=== PATIENT | female | born 1965 | race Caucasian/White ===

== ENCOUNTER 2021-02-03 14:43 | Outpatient (RCR) | payer BC, SELFPAY | END 2021-04-18 23:59 | LOC: IMMUN 14:43 | PROVIDERS: Visit Provider Family Medicine | DX: Z23 Encounter for immunization (principal) | CPT/HCPCS: 0001A; 0002A; 91300 ==

== ENCOUNTER 2025-04-07 07:28 | Emergency (ER) | payer BC, SELFPAY ==
[2025-04-07 07:31] VITALS: BP 133/72; PULSE 83; RESP 16; TEMP 37; O2SAT 97; BMI 43.2
--- NOTE | 2025-04-07 07:48 | CT_ITS ---
PROCEDURE: SOFT TISSUE NECK WITH CONTRAST 04/07/2025 REASON FOR EXAM: LUMP IN THROAT Emesis. TECHNIQUE: CT of the soft tissues of the neck from the orbits to the upper mediastinum with intravenous contrast. CONTRAST: Isovue 370 VOLUME: 80 mL One or more dose reduction techniques were used (e.g., Automated exposure control, adjustment of the mA and/or kV according to patient size, use of iterative reconstruction technique). RADIATION DOSE SUMMARY: CTDlvol: 18.85 mGy DLP: 583.99 mGycm COMPARISON: None FINDINGS: Airway: Midline and patent. Salivary glands: Unremarkable. Lymph nodes: Mild reactive enlargement of multiple cervical lymph nodes. Thyroid: Unremarkable. Vasculature: Carotid arteries and internal jugular veins are unremarkable. Orbits: Unremarkable at visualized levels. Paranasal sinuses and mastoids: Grossly clear at visualized levels. Lung apices: Clear. Upper mediastinum: Visualized mediastinum is unremarkable. Bones: Mild degenerative changes of the spine. Other: CT/Soft Tissue Neck WITH Contrast IMPRESSION: NORMAL CONTRAST-ENHANCED CT OF THE SOFT TISSUES OF THE NECK. Reading Location: [place] [id number]
--- NOTE | 2025-04-07 07:52 | EDS_ITS ---
HPI HPI - GI History of Present Illness Chief Complaint: Foreign Body Narrative Narrative: 60-year-old female who denies significant past medical history presents with foreign body sensation/lump in her throat that she has had since this morning. She relays history that about a month ago she woke up with a feeling that she was going to vomit. She did. She felt this lump in her throat, but it resolved. However, yesterday evening she woke up at midnight, approximately 8 hours ago which she had the same feeling. She did end up vomiting, but then at 2 or 3:00 in the morning she awoke with this foreign body sensation and swelling in her throat that she states that she can palpate. She denies any difficulty swallowing and states she is able to drink water and swallow her own saliva, but she feels that there is a lump in her throat that is larger and will not go away. No exacerbating or alleviating factors. PFSH PFSH Allergy/AdvReac Type Severity Reaction Status Date / Time No Known Allergies Allergy Verified 04/07/25 07:33 Social History Smoking Status: Never smoker ROS ROS ED ROS Narrative Review of systems positive for lump in throat at anterior base of neck that patient can palpate. Denies any difficulty swallowing or breathing. No recent fevers or chills. No exacerbating or alleviating factors. EXAM Physical Exam Narrative Exam Narrative: Afebrile. Vital signs noted. Nontoxic-appearing. Cardiovascular examination reveals regular rate and rhythm. Lungs are clear to auscultation bilaterally. HEENT examination is grossly unremarkable. No drooling or trismus. Airway is patent. Posterior pharynx patent. I do not palpate a large lump at the base of her trachea, but I am able to palpate her thyroid cartilage without crepitance. Const Vital Signs: 04/07/25 07:30 04/07/25 07:31 Temperature 98.6 F Temperature Source Oral Pulse Rate 83 Respiratory Rate 16 Respiratory Effort Normal Non-Labored Respiratory Pattern Normal Blood Pressure 133/72 H Blood Pressure Mean 92 Pulse Ox 97 Oxygen Delivery Method Room Air MDM MDM MDM Narrative Medical decision making narrative: Differential diagnosis includes but not limited to globus hystericus versus foreign body sensation versus esophageal rupture versus hematoma. I have low suspicion for esophageal food impaction as she is handling her secretions. She will be given a p.o. challenge. CT imaging will be obtained to rule out foreign body and hematoma. I reviewed her laboratory work and she has normal white count 6.8 with hemoglobin 14.1, hematocrit 42.8, platelet count normal at 281. I also reviewed the radiology report of the CT of the soft tissue neck and there is no acute obstruction, no foreign body. I also reviewed her BMP. BMP obtained and reviewed and shows glucose 116 but BUN normal at 13 and creatinine 0.85, normal anion gap of 11. Patient able to tolerate p.o. challenge. At this point in time, I do feel that she may have more GERD like symptoms, and she was referred to gastroenterology for possible upper endoscopy. I do not feel she requires admission. Return instructions to the emergency department were reviewed. Disposition is discharged home in stable condition. History & Record Review Discussion w/independent historian: Patient Lab Data Attestation: I reviewed the patient's lab results. Labs: Laboratory Results - last 24 hr 04/07/25 08:10 WBC 6.8 RBC 5.16 Hgb 14.1 Hct 42.8 MCV 82.9 MCH 27.3 MCHC 32.9 RDW Std Deviation 39.9 RDW Coeff of Rafa 13.4 Plt Count 281 MPV 10.3 Immature Gran % (Auto) 0.300 Neut % (Auto) 75.1 H Lymph % (Auto) 14.2 L Taliaferro % (Auto) 7.3 Eos % (Auto) 2.5 Baso % (Auto) 0.6 Absolute Neuts (auto) 5.1 Absolute Lymphs (auto) 0.97 Nucleated RBC % 0 Sodium 140 Potassium 4.1 Chloride 105 Carbon Dioxide 24.9 Anion Gap 11 BUN 13 Creatinine 0.85 Estim Creat Clear Calc 79.01 Est GFR (MDRD) Non-Af 79 BUN/Creatinine Ratio 15.3 Glucose 116 H Calcium 9.5 Radiography Diagnostic Testing: Clinical Impression(s) from Imaging Studies Soft Tissue Neck CT 04/07/25 07:48 IMPRESSION: NORMAL CONTRAST-ENHANCED CT OF THE SOFT TISSUES OF THE NECK. Reading Location: [place] [id number] Discharge Plan Triage Chief Complaint: Foreign Body ED Provider: Yosi Chaney Dx/Rx/DC Orders Clinical Impression: Foreign body sensation in throat, GERD (gastroesophageal reflux disease) Instructions: ED GERD (Adult), ED Pain, Acute, Uncertain Cause Primary Care Provider: Uriel Lovelace Referrals: Uriel Lovelace DO [Primary Care Provider] - FriendJose DO [Med Staff - Active Staff] - As soon as possible Activity Restrictions/Additional Instructions: Return to the emergency department with difficulty swallowing, new or worsening symptoms. You may want to start [id number] omeprazole, and follow-up with gastroenterology. Print Language: [place] Disposition Disposition: Home, Self Care
[2025-04-07 08:18] LABS: Absolute Lymphocyte Count 0.97 X10^3/uL (0.83-4.51); Absolute Neutrophil Count 5.1 X10^3/uL (2.0-7.7); Basophil# 0.04 X10^3/uL; Basophil% 0.6 % (0-1); Eosinophil# 0.17 X10^3/uL; Eosinophils% 2.5 % (0-5); Hematocrit 42.8 % (37-47); Hemoglobin 14.1 g/dL (12.0-15.0); Lymphocyte # 0.97 X10^3/ul (0.83-4.51); Lymphocyte % 14.2 % (19-41); Mean Corp Hgb Conc 32.9 g/dL (32-36); Mean Corpuscular Hgb 27.3 pg (27.0-32.0); Mean Corpuscular Volume 82.9 fL (81-99); Mean Platelet Vol. 10.3 fl (6.2-12.0); Monocyte% 7.3 % (0-10); NRBC Flagged by Analyzer 0 % (0-5); Neutrophil # 5.14 X10^3/uL (2.7-7.7); Neutrophil % 75.1 % (47-70); Platelet Count 281 K/mm3 (150-450); RBC Distribution Width CV 13.4 % (11.6-14.6); RBC Distribution Width SD 39.9 fl (35.1-43.9); Red Blood Count 5.16 M/mm3 (4.2-5.4); White Blood Count 6.8 K/mm3 (4.4-11.0)
[2025-04-07 09:13] LABS: Anion Gap 11 (5-15); BUN 13 mg/dL (4-19); BUN/Creat Ratio 15.3 RATIO (10-20); Calcium,Total 9.5 mg/dL (7.6-11.0); Carbon Dioxide 24.9 mmol/L (21.0-32.0); Chloride 105 mmol/L (98-108); Creatinine, Serum 0.85 mg/dL (0.70-1.20); EST Glomerular Filtration Rate 79 (>60); Estimated Creatinine Clearance 79.01 ml/min (50-250); Glucose 116 mg/dL (70-99); Potassium 4.1 mmol/L (3.3-5.1); Sodium Level 140 mmol/L (133-145)
[2025-04-07 10:00] VITALS: BP 128/74; PULSE 81; PULSE 83; RESP 16; TEMP 36.6; O2SAT 96
== END 2025-04-07 10:36 | disposition home or self-care (01) ==
PROVIDERS: Emergency Provider Emergency Medicine; PCP Student in an Organized Health Care Education/Training Program; Visit Provider Emergency Medicine
DX: R09.A2 Foreign body sensation, throat (principal); K21.9 Gastro-esophageal reflux disease without esophagitis
CPT/HCPCS: 70491; 80048; 85025; 99283; Q9967; A4216

== ENCOUNTER 2025-04-18 09:18 | Emergency (ER) | payer BC, SELFPAY ==
[2025-04-18 09:18] VITALS: BP 143/87; PULSE 81; RESP 16; TEMP 36.9; O2SAT 98; BMI 43.2
--- NOTE | 2025-04-18 09:31 | EDS_ITS ---
HPI History of Present Illness Chief Complaint: Eye Problem Detail of Chief Complaint: Right eye scratch Informant: patient Narrative Narrative: Patient presents to the emergency department with a cat scratch to her right eye that occurred last evening. Patient states that her cat accidentally scratched her right eye. She went to urgent care today and was referred to the ER. Patient denies any vision changes. She had some mild tearing. PFSH PFSH Allergy/AdvReac Type Severity Reaction Status Date / Time No Known Allergies Allergy Verified 04/18/25 09:18 Social History Smoking Status: Never smoker ROS ROS ED Review of Systems ROS Unobtainable: other Constitutional Constitutional ED: Reports lethargy; Denies chills, fever(s), sweats or weight loss Eyes Eyes: Reports other Details: Right eye injury ; Denies blurry vision, change in vision or diplopia ENT ENT ED: Denies rhinorrhea or sore throat Cardiovascular Cardiovascular: Denies chest pain, orthopnea or racing heartbeat Respiratory/Chest Respiratory/Chest: Denies cough, dyspnea, dyspnea on exertion, orthopnea or sputum Gastrointestinal Gastrointestinal: Denies abdominal pain, diarrhea, nausea or vomiting Genitourinary Genitourinary ED: Denies dysuria, hematuria or urinary frequency Musculoskeletal Musculoskeletal: Denies arthralgias, back pain, myalgias or neck pain Integumentary Denies abscess, Abrasions or rash Neurologic Neurologic: Denies headache(s) or weakness Psychiatric Psychiatric: Denies anxiety, depression or suicidal thoughts Endocrine Endocrinology: Denies polydipsia, polyphagia or polyuria Hematologic/Lymphatic Hematologic/Lymphatic: Denies easy bleeding, easy bruising or lymphadenopathy Allergic/Immunologic Allergic/Immunologic ED: Denies mouth swelling, tongue swelling or urticaria EXAM Physical Exam Const Vital Signs: 04/18/25 09:18 Temperature 98.4 F Temperature Source Oral Pulse Rate 81 Respiratory Rate 16 Blood Pressure 143/87 H Blood Pressure Mean 105 Pulse Ox 98 Oxygen Delivery Method Room Air Positive well nourished and well developed General Appearance ED: well developed and NAD HEENT Reports TM's clear and moist mucous membranes normocephalic and atraumatic; Negative for trauma or tenderness Tympanic Membrane ED: Yes TM's clear Eyes PERRL and EOMs intact bilaterally Eyes Narrative: Right eye-patient has some lateral conjunctival erythema/contusion. Pupils equal react light bilaterally. Extraocular muscle movement is normal. General Eye ED: Negative for pale conjunctiva or scleral icterus Neck no lymphadenopathy, supple and no JVD General: Negative for tenderness Chest Wall inspection of chest normal and palpation of chest normal Chest: Negative for tenderness Resp normal respiratory effort and clear to auscultation bilaterally Effort and Inspection: Negative for respiratory distress or pain with movement Auscultation: Negative for rhonchi, wheezes or diminished lung sounds Cardio regular rate, regular rhythm, S1 normal heart sound, S2 normal heart sound and no murmurs Peripheral Pulses: pulses 2+ throughout GI normal to inspection, nondistended, normoactive bowel sounds, soft to palpation, non-tender, non-distended and no masses Back/Spine no CVA tenderness and no thoracic nor lumbar tenderness Extremity normal to inspection General Extremety ED: Negative for edema General Extremity: Negative for edema Neuro oriented x3, CN's II-XII intact bilaterally, no sensory deficits noted and gait normal Sensorium / Orientation: awake, alert, oriented to person, oriented to place and oriented to time Motor Exam: strength 5/5 throughout and strength abnormal Psych mental status grossly normal Skin no rashes or lesions noted and no wounds MDM MDM MDM Narrative Medical decision making narrative: Patient presents with a scratch to the right eye that occurred last evening by her cat. She clinically looks well. I did use fluorescein stain the eye and there was no evidence of corneal abrasion. Minimal uptake over the lateral conjunctiva where the contusion is. Negative Eric sign. No foreign bodies noted underneath the eyelids. Patient will be started on Cipro eyedrops and referred to ophthalmology for follow-up. Discharge Plan Triage Chief Complaint: Eye Problem ED Provider: Brooklynn Velasco Dx/Rx/DC Orders Clinical Impression: Injury of right conjunctiva Instructions: Subconjunctival Hemorrhage Primary Care Provider: Uriel Lovelace Referrals: Uriel Lovelace DO [Primary Care Provider] - Marcial Almendarez MD [Med Staff - Active Staff] - 2 Days Activity Restrictions/Additional Instructions: You have an abrasion to the right conjunctiva from a cat scratch. Use the antibiotic eyedrop and follow-up with ophthalmology for wound check within the next 2 to 3 days Print Language: [place] Disposition Disposition: Home, Self Care
--- OUTSIDE RECORDS SUMMARY | 2025-04-18 09:37 | XMS RPT_ITS | CCD ---
Author Organization [facility] Care Team Providers Care Shop Technician Name Role Phone Uriel Lovelace DO Primary Care Provider [phone] Unavailable Primary Care Provider Unavailabl e Unavailable Primary Care Provider Unavailabl e Unavailable Primary Care Provider Unavailabl e PROVIDER, UNKNOWN Admitting Unavailable PROVIDER, UNKNOWN Attending Unavailable Unavailable Primary Care Provider Unavailneri e ISI LAWRENCE Attending Unavailable DEX MUNGUIA Referring Unavailable DEX MUNGUIA Attending Unavailable DEX MUNGUIA Referring Unavailable Yosi Chaney MD Emergency Provider Dr. Uriel Lovelace DO Primary Care Provider Yosi Chaney Attending Unavailable Uriel Lovelace Primary Care Unavailable Medications Current Medications Medication Drug Class(es) Dates Sig (Normalized) Sig (Original) Apple Cider Vinegar (20 sources) APPLE CIDER VINE GAR ORAL Take 2 Each by mouth once daily. 2 gummiesfdaily Active APPLE CIDER VINE GAR ORAL Take 2 Each by mouth once daily. 2 gummiesfdaily 0 Active Comment on above: Take 2 Each by mouth once daily. 2 gummiesfdaily ferrous sulfate 140 mg extended release oral tablet (20 sources) Start: 2 End: 2 take 1 tablet by mouth twice daily at mealtime ferrous sulfate (SLOW FE) 140 mg (45 mg iron) TbER Indications: Fatigue, unspecified type , Iron deficiency anemia, unspecified iron deficiency anemia type Take 1 tablet by mouth twice daily with meals. 60 tablet 2 04/04/2022 07/03/2022 Active take 1 tablet by marcel th once daily at breakfast ferrous sulfate 325 mg (65 mg iron) tabl et Take 325 mg by mouth daily with breakfast. Active Comment on above: Take 1 tablet by marcel th twice daily with meals. Take 325 mg by mouth daily with breakfast. semaglutide, weight loss, (WEGOVY) 0.25 mg/0.5 mL pen injector (3 sources) Start: 4 inject 0.5 mL by subcutaneous injection every week semaglutide, weight loss, (WEGOVY) 0.25 mg/0.5 mL pen injector Indications: Sleep apnea-like behavior , Severe obesity (BMI >= 40) (HCC) Inject 0.5 mL subcutaneously one time a week. 2 mL 2 06/19/2024 Active semaglutide, weight loss, (WEGOVY) 0.5 mg/0.5 mL pen injector (3 sources) Start: 4 inject 0.25 mg by subcutaneous injection every week semaglutide, weight loss, (WEGOVY) 0.5 mg/0.5 mL pen injector Inject 0.5 mL subcutaneously one time a week. To start after completing 0.25 mg dose 2 mL 2 06/19/2024 Active Completed/Discontinued Medications Medication Drug Class(es) Dates Sig (Normalized) Sig (Original) vit C-vitamin D3-herb no.313 250 mg-3.75 mcg -212.5 mg cap (5 sources) End: 04-25-2022 take 1 capsule by mouth once daily vit C-vitamin D3-herb no.313 250 mg-3.75 mcg -212.5 mg cap Take 1 capsule by mouth once daily. 0 04/25/2022 Discontinued take 1 capsule by mouth once liya ly vit C-vitamin D3-herb no.313 250 mg-3.75 mcg -212.5 mg cap Take 1 capsule by mouth once daily. 0 Active Comment on above: Take 1 capsule by mo ut once daily. Problems Active Problems Problem Classification Problem Date Documented Da te Episodic/Chronic Deficiency and other anemia (1 source) Iron deficiency anemia; Translations: [Iron deficiency anemia, unspecified] Episodic Disorders of lipid metabolism (20 sources) Hypercholesterolemia; Translations: [Pure hypercholesterolemia, unspecified] Onset: 4 02-26-2014 Chronic Esophageal disorders (1 source) Gastroesophageal reflux disease; Translations: [Gastro-esophageal reflux disease without esophagitis] 04-07-2025 Chronic Malaise and fatigue (2 sources) Fatigue; Translations: [Other fatigue] Episodic Nutritional deficiencies (1 source) Vitamin D deficiency; Translations: [Vitamin D deficiency, unspecified] Chronic Other gastrointestinal disorders (1 source) Dysphagia; Translations: [Dysphagia, unspecified] Episodic Other nutritional; endocrine; and metabolic disorders (20 sources) Obesity; Translations: [Obesity, unspecified] Onset: 8 09-28-2008 Chronic Other nutritional; endocrine; and metabolic disorders (1 source) Obese class II; Translations: [Obesity, unspecified] Chronic Other nutritional; endocrine; and metabolic disorders (1 source) Severe obesity; Translations: [Morbid (severe) obesity due to excess calories] 04-20-2024 Chronic Other nutritional; endocrine; and metabolic disorders (1 source) Body mass index 40+ - severely obese; Translations: [Morbid (severe) obesity due to excess calories] 06-19-2024 Chronic Other nutritional; endocrine; and metabolic disorders (1 source) Insulin resistance; Translations: [Insulin resistance] 06-19-2024 Chronic Other nutritional; endocrine; and metabolic disorders (1 source) Morbid (severe) obesity due to excess calories; Translations: [Class 3 severe obesity with body mass index (BMI) of 40.0 to 44.9 in adult, unspecified obesity type, unspecified whether serious comorbidity present (HCC)] Onset: 8 Chronic Other nutritional; endocrine; and metabolic disorders (1 source) Body mass index (BMI) 40.0-44.9, adult; Translations: [Class 3 severe obesity with body mass index (BMI) of 40.0 to 44.9 in adult, unspecified obesity type, unspecified whether serious comorbidity present (HCC)] Onset: 8 Chronic Other screening for suspected conditions (not mental disorders or infectious disease) (1 source) Finding of thyroid gland; Translations: [Abnormal findings on diagnostic imaging of other specified body structures] Chronic Other skin disorders (1 source) Localized swelling, mass and lump, neck; Translations: [Localized swelling, mass and lump, neck] Onset: Episodic Other upper respiratory disease (1 source) Sensation of foreign body in throat; Translations: [Sensation of foreign body in throat] 04-07-2025 Episodic Other upper respiratory infections (1 source) Nasal discharge; Translations: [Postnasal drip] Episodic Residual codes; unclassified (1 source) Behavior finding; Translations: [Other sleep apnea] 06-19-2024 Chronic Thyroid disorders (20 sources) Hyperthyroidism; Translations: [Thyrotoxicosis, unspecified without thyrotoxic crisis or storm] Onset: 2 Chronic Past or Other Problems Problem Classification Problem Date Documented Da te Episodic/Chronic Other connective tissue disease (20 sources) Heel pain; Translations: [Pain in unspecified foot] Onset: 02-26-2014 02-26-2014 Episodic Other gastrointestinal disorders (20 sources) Flatulence, eructation and gas pain; Translations: [Flatulence] Onset: 09-28-2008 09-28-2008 Episodic Other screening for suspected conditions (not mental disorders or infectious disease) (6 sources) Thyroid function tests abnormal; Translations: [Abnormal results of thyroid function studies] Onset: 04-15-2024 Episodic Results Test Name Value Interpretation Reference Range Facility Absolute lymphocyte countOrd ered By: Yosi Chaney on 04-07-2025 Lymphocytes Auto (Unsp spec) [#/Vol] 0.97 10*3/uL 0.83-4.51 [facility] Absolute neutrophil countOrd ered By: Yosi Chaney on 04-07-2025 Neutrophils (Bld) [#/Vol] 5.1 10*3/uL 2.0-7.7 [facility] Anion gap in Serum or Plasma Ordered By: Yosi Chaney on 04-07-2025 Anion gap [Moles/Vol] 11 mmol/L 03-25 [facility] Automated lymphocyte count a s percentage of total leukocytesOrdered By: Yosi Chaney on 04-07-2025 Lymphocytes/100 WBC Auto (Unsp spec) 14.2 % Low 19- [facility] BUN/creatinine ratioOrdered By: Yosi Chaney on 04-07-2025 Urea nitrogen/Creatinine [Mass ratio] 15.3 mg/mg 08-30 [facility] Basic Metabolic Profile (BMP )on 04-07-2025 BUN/CRE 15.3 RATIO Normal 08-30 [facility] Comment on above: Performed By: #### L 100.0100, L500.2500 #### [facility] [address] [place], [address] Calcium [Mass/Vol] 9.5 mg/dL Normal 7.6-11.0 [facility] Comment on above: Performed By: #### L 100.0100, L500.2500 #### [facility] [address] [place], [address] Chloride [Moles/Vol] 105 mmol/L Normal 98-108 [facility] Comment on above: Performed By: #### L 100.0100, L500.2500 #### [facility] [address] [place], [address] CO2 [Moles/Vol] 24.9 mmol/L Normal 21.0-32.0 [facility] Comment on above: Performed By: #### L 100.0100, L500.2500 #### [facility] [address] [place], [address] Creatinine [Mass/Vol] 0.85 mg/dL Normal 0.70-1.20 [facility] Comment on above: Performed By: #### L 100.0100, L500.2500 #### [facility] [address] [place], [address] ECRCL 79.01 ml/min Normal 50-250 [facility] Comment on above: Performed By: #### L 100.0100, L500.2500 #### [facility] [address] [place], [address] GAP 11 Normal 5-15 [facility] Comment on above: Performed By: #### L 100.0100, L500.2500 #### [facility] [address] [place], [address] GFR/1.73 sq M.predicted among non-blacks MDRD (S/P/Bld) [Vol rate/Area] 79 mL/min/{1.73_m2} Normal >60 [facility] Comment on above: Result Comment: mL/m in/1.73m2 CKD-EPI Creatinine Equation (2020) Performed By: #### L 100.0100, L500.2500 #### [facility] [address] [place], [address] Glucose [Mass/Vol] 116 mg/dL High 70-99 [facility] Comment on above: Performed By: #### L 100.0100, L500.2500 #### [facility] [address] [place], [address] Potassium [Moles/Vol] 4.1 mmol/L Normal 3.3-5.1 [facility] Comment on above: Performed By: #### L 100.0100, L500.2500 #### [facility] [address] [place], [address] Sodium [Moles/Vol] 140 mmol/L Normal 133-145 [facility] Comment on above: Performed By: #### L 100.0100, L500.2500 #### [facility] [address] [place], [address] Urea nitrogen [Mass/Vol] 13 mg/dL Normal 4-19 [facility] Comment on above: Performed By: #### L 100.0100, L500.2500 #### [facility] [address] [place], [address] Basophil percentageOrdered B y: Yosi Chaney on 04-07-2025 Basophils/100 WBC (Bld) 0.6 % 0-1 [facility] CBC W/Diff, Automatedon - Absolute Lymph 0.97 X10 3/uL Normal 0.83-4.51 [facility] Comment on above: Performed By: #### L 100.0100, L500.2500 #### [facility] [address] [place], [address] Absolute Neut 5.1 X10 3/uL Normal 2.0-7.7 [facility] Comment on above: Performed By: #### L 100.0100, L500.2500 #### [facility] [address] [place], [address] Basophils/100 WBC (Bld) 0.6 % Normal 0-1 [facility] Comment on above: Performed By: #### L 100.0100, L500.2500 #### [facility] [address] [place], [address] Eosinophils/100 WBC (Bld) 2.5 % Normal 0-5 [facility] Comment on above: Performed By: #### L 100.0100, L500.2500 #### [facility] [address] [place], [address] Erythrocyte distribution width (RBC) [Ratio] 13.4 % Normal 11.6-14.6 [facility] Comment on above: Performed By: #### L 100.0100, L500.2500 #### [facility] [address] [place], [address] Hematocrit (Bld) [Volume fraction] 42.8 % Normal 37-47 [facility] Comment on above: Performed By: #### L 100.0100, L500.2500 #### [facility] [address] [place], [address] Hemoglobin (Bld) [Mass/Vol] 14.1 g/dL Normal 12.0-15.0 [facility] Comment on above: Performed By: #### L 100.0100, L500.2500 #### [facility] [address] [place], [address] IG% 0.300 Normal 0.0-0.9 [facility] Comment on above: Result Comment: IG% - Immature Granulocytes (promyelocytes, myelocytes and metamyelocytes) > 1% indicates that a LEFT SHIFT is Present. Performed By: #### L 100.0100, L500.2500 #### [facility] [address] [place], [address] Lymphocytes/100 WBC (Bld) 14.2 % Low 19-41 [facility] Comment on above: Performed By: #### L 100.0100, L500.2500 #### [facility] [address] [place], [address] MCH (RBC) [Entitic mass] 27.3 pg Normal 27.0-32.0 [facility] Comment on above: Performed By: #### L 100.0100, L500.2500 #### [facility] [address] [place], [address] MCHC (RBC) [Mass/Vol] 32.9 g/dL Normal 32-36 [facility] Comment on above: Performed By: #### L 100.0100, L500.2500 #### [facility] [address] [place], [address] MCV (RBC) [Entitic vol] 82.9 fL Normal 81-99 [facility] Comment on above: Performed By: #### L 100.0100, L500.2500 #### [facility] [address] [place], [address] Monocytes/100 WBC (Bld) 7.3 % Normal 0-10 [facility] Comment on above: Performed By: #### L 100.0100, L500.2500 #### [facility] [address] [place], [address] Neutrophils/100 WBC (Bld) 75.1 % High 47-70 [facility] Comment on above: Performed By: #### L 100.0100, L500.2500 #### [facility] [address] [place], [address] Nucleated RBC (Bld) [#/Vol] 0 10*3/uL Normal 0-5 [facility] Comment on above: Performed By: #### L 100.0100, L500.2500 #### [facility] [address] [place], [address] Platelet mean volume (Bld) [Entitic vol] 10.3 fL Normal 6.2-12.0 [facility] Comment on above: Performed By: #### L 100.0100, L500.2500 #### [facility] [address] [place], [address] Platelets (Bld) [#/Vol] 281 10*3/uL Normal 150-450 [facility] Comment on above: Performed By: #### L 100.0100, L500.2500 #### [facility] [address] [place], [address] RBC (Bld) [#/Vol] 5.16 10*6/uL Normal 4.2-5.4 [facility] Comment on above: Performed By: #### L 100.0100, L500.2500 #### [facility] [address] [place], [address] RDW SD 39.9 fl Normal 35.1-43.9 [facility] Comment on above: Performed By: #### L 100.0100, L500.2500 #### [facility] [address] [place], [address] WBC (Bld) [#/Vol] 6.8 10*3/uL Normal 4.4-11.0 [facility] Comment on above: Performed By: #### L 100.0100, L500.2500 #### [facility] [address] [place], [address] Carbon dioxide, total [Moles /volume] in Central venous bloodOrdered By: Yosi Chaney on 04-07-2025 CO2 [Moles/Vol] 24.9 mmol/L 21.0-32.0 [facility] Chloride assayOrdered By: Corby Chaney on 04-07-2025 Chloride [Moles/Vol] 105 mmol/L 98-108 [facility] Emergency Department Summary on 04-07-2025 Emergency Department Summary [facility] Medical Records Department [address] [place] [address] Emergency Department Summary 04/07/25 MR#: [id number] Acct: [id number] Name: DO DE GUZMAN Rep #: [id number] : 1965 60 From: Yosi Chaney MD PCP: Dr. Uriel Lovelace, DO Status:REG ER Location: ED HPI HPI - GI History of Present Illness Chief Complaint: Foreign Body Narrative Narrative: 60-year-old female who denies significant past medical history presents with foreign body sensation/lump in her throat that she has had since this morning. She relays history that about a month ago she woke up with a feeling that she was going to vomit. She did. She felt this lump in her throat, but it resolved. However, yesterday evening she woke up at midnight, approximately 8 hours ago which she had the same feeling. She did end up vomiting, but then at 2 or 3:00 in the morning she awoke with this foreign body sensation and swelling in her throat that she states that she can palpate. She denies any difficulty swallowing and states she is able to drink water and swallow her own saliva, but she feels that there is a lump in her throat that is larger and will not go away. No exacerbating or alleviating factors. PFSH PFSH Allergy/AdvReac Type Severity Reaction Status Date / Time No Known Allergies Allergy Verified 04/07/25 07:33 Social History Smoking Status: Never smoker ROS ROS ED ROS Narrative Review of systems positive for lump in throat at anterior base of neck that patient can palpate. Denies any difficulty swallowing or breathing. No recent fevers or chills. No exacerbating or alleviating factors. EXAM Physical Exam Narrative Exam Narrative: Afebrile. Vital signs noted. Nontoxic-appearing. Cardiovascular examination reveals regular rate and rhythm. Lungs are clear to auscultation bilaterally. HEENT examination is grossly unremarkable. No drooling or trismus. Airway is patent. Posterior pharynx patent. I do not palpate a large lump at the base of her trachea, but I am able to palpate her thyroid cartilage without crepitance. Const Vital Signs: 04/07/25 07:30 04/07/25 07:31 Temperature 98.6 F Temperature Source Oral Pulse Rate 83 Respiratory Rate 16 Respiratory Effort Normal Non-Labored Respiratory Pattern Normal Blood Pressure 133/72 H Blood Pressure Mean 92 Pulse Ox 97 Oxygen Delivery Method Room Air MDM MDM MDM Narrative Medical decision making narrative: Differential diagnosis includes but not limited to globus hystericus versus foreign body sensation versus esophageal rupture versus hematoma. I have low suspicion for esophageal food impaction as she is handling her secretions. She will be given a p.o. challenge. CT imaging will be obtained to rule out foreign body and hematoma. I reviewed her laboratory work and she has normal white count 6.8 with hemoglobin 14.1, hematocrit 42.8, platelet count normal at 281. I also reviewed the radiology report of the CT of the soft tissue neck and there is no acute obstruction, no foreign body. I also reviewed her BMP. BMP obtained and reviewed and shows glucose 116 but BUN normal at 13 and creatinine 0.85, normal anion gap of 11. Patient able to tolerate p.o. challenge. At this point in time, I do feel that she may have more GERD like symptoms, and she was referred to gastroenterology for possible upper endoscopy. I do not feel she requires admission. Return instructions to the emergency department were reviewed. Disposition is discharged home in stable condition. History Record Review Discussion w/independent historian: Patient Lab Data Attestation: I reviewed the patient's lab results. Labs: Laboratory Results - last 24 hr 04/07/25 08:10 WBC 6.8 RBC 5.16 Hgb 14.1 Hct 42.8 MCV 82.9 MCH 27.3 MCHC 32.9 RDW Std Deviation 39.9 RDW Coeff of Rafa 13.4 Plt Count 281 MPV 10.3 Immature Gran % (Auto) 0.300 Neut % (Auto) 75.1 H Lymph % (Auto) 14.2 L Hayes % (Auto) 7.3 Eos % (Auto) 2.5 Baso % (Auto) 0.6 Absolute Neuts (auto) 5.1 Absolute Lymphs (auto) 0.97 Nucleated RBC % 0 Sodium 140 Potassium 4.1 Chloride 105 Carbon Dioxide 24.9 Anion Gap 11 BUN 13 Creatinine 0.85 Estim Creat Clear Calc 79.01 Est GFR (MDRD) Non-Af 79 BUN/Creatinine Ratio 15.3 Glucose 116 H Calcium 9.5 Radiography Diagnostic Testing: Clinical Impression(s) from Imaging Studies Soft Tissue Neck CT 04/07/25 07:48 IMPRESSION: NORMAL CONTRAST-ENHANCED CT OF THE SOFT TISSUES OF THE NECK. Reading Location: [place] [address] Discharge Plan Triage Chief Complaint: Foreign Body ED (more content not included)... Normal [facility] Eosinophil percentageOrdered By: Yosi Chaney on 04-07-2025 Eosinophils/100 WBC (Bld) 2.5 % 0-5 [facility] Erythrocyte distribution wid th ratioOrdered By: Yosi Chaney on 04-07-2025 Erythrocyte distribution width (RBC) [Ratio] 13.4 % 11.6-14.6 [facility] Erythrocyte distribution wid th standard deviationOrdered By: Yosi Chaney on 04-07-2025 Erythrocyte distribution width (RBC) [Ratio] 39.9 fl 35.1-43.9 [facility] Glomerular filtration rate ( GFR) estimation/1.73 sq m using serum, plasma, or whole bOrdered By: Yosi Chaney on 04-07-2025 GFR/1.73 sq M.predicted among non-blacks MDRD (S/P/Bld) [Vol rate/Area] 79 mL/min/{1.73_m2} >60 [facility] Comment on above: mL/min/1.73m2 CKD-EP I Creatinine Equation (2020) Hematocrit Auto (Bld) [Volum e fraction]Ordered By: Yosi Chaney on 04-07-2025 Hematocrit (Bld) [Volume fraction] 42.8 % 37-47 [facility] Hemoglobin measurementOrdere d By: Yosi Chaney on 04-07-2025 Hemoglobin (Bld) [Mass/Vol] 14.1 g/dL 12.0-15.0 [facility] Immature granulocytes/100 WB C Auto (Bld)Ordered By: Yosi Chnaey on 04-07-2025 Immature granulocytes/100 WBC (Bld) 0.300 % 0.0-0.9 [facility] Comment on above: IG% - Immature Granu locytes (promyelocytes, myelocytes and metamyelocytes) > 1% indicates that a LEFT SHIFT is Present. MCV (mean corpuscular volume ) determinationOrdered By: Yosi Chaney on 04-07-2025 MCV (RBC) [Entitic vol] 82.9 fL 81-99 [facility] Mean corpuscular hemoglobin (MCH) determinationOrdered By: Yosi Chaney on 04-07-2025 MCH (RBC) [Entitic mass] 27.3 pg 27.0-32.0 [facility] Mean corpuscular hemoglobin concentration (MCHC) determinationOrdered By: Yosi Chaney on 04-07-2025 MCHC (RBC) [Mass/Vol] 32.9 g/dL 32-36 [facility] Mean platelet volume determi nationOrdered By: Yosi Chaney on 04-07-2025 Platelet mean volume (Bld) [Entitic vol] 10.3 fL 6.2-12.0 [facility] Monocyte percentageOrdered B y: Yosi Chaney on 04-07-2025 Monocytes/100 WBC (Bld) 7.3 % 0-10 [facility] Neutrophil percentageOrdered By: Yosi Chaney on 04-07-2025 Neutrophils/100 WBC (Bld) 75.1 % High 47-70 [facility] Nucleated red blood cell per centageOrdered By: Yosi Chaney on 04-07-2025 Nucleated RBC/100 WBC (Bld) [Ratio] 0 % 0-5 [facility] Platelet countOrdered By: Corby Chaney on 04-07-2025 Platelets (Bld) [#/Vol] 281 10*3/uL 150-450 [facility] Potassium measurement (mass/ volume)Ordered By: Yosi Chaney on 04-07-2025 Potassium (Unsp spec) [Mass/Vol] 4.1 mmol/L 3.3-5.1 [facility] RBC Auto (Bld) [#/Vol]Ordere d By: Yosi Chaney on 04-07-2025 RBC (Bld) [#/Vol] 5.16 10*6/uL 4.2-5.4 [facility] Serum creatinine measurement (mass/volume)Ordered By: Yosi Chaney on 04-07-2025 Creatinine [Mass/Vol] 0.85 mg/dL 0.70-1.20 [facility] Serum glucose measurement (m ass/volume)Ordered By: Yosi Chaney on 04-07-2025 Glucose [Mass/Vol] 116 mg/dL High 70-99 [facility] Serum or plasma calcium marcela urement (mass/volume)Ordered By: Yosi Chaney on 04-07-2025 Calcium [Mass/Vol] 9.5 mg/dL 7.6-11.0 [facility] Serum or plasma urea nitroge n measurement (mass/volume)Ordered By: Yosi Chaney on 04-07-2025 Urea nitrogen [Mass/Vol] 13 mg/dL 4-19 [facility] Sodium levelOrdered By: Yosi Chaney on 04-07-2025 Sodium [Moles/Vol] 140 mmol/L 133-145 [facility] Soft Tissue Neck WITH Contra ston 04-07-2025 Soft Tissue Neck WITH Contrast [facility] Imaging Services [facility] [place], [place] [address] Soft Tissue Neck WITH Contrast MR#: [id number] Acct: [id number] Name: DO DE GUZMAN Rep #: [id number] : 1965 F 60 From: Cheikh martell MD PCP: Dr. Uriel Lovelace, DO Status: REG ER Study: Soft Tissue Neck WITH Contrast Date of Exam: 0 04/07/25 Exam# [id number] Ordering Dr: Yosi Chaney MD PROCEDURE: SOFT TISSUE NECK WITH CONTRAST 04/07/2025 REASON FOR EXAM: LUMP IN THROAT Emesis. TECHNIQUE: CT of the soft tissues of the neck from the orbits to the upper mediastinum with intravenous contrast. CONTRAST: Isovue 370 VOLUME: 80 mL One or more dose reduction techniques were used (e.g., Automated exposure control, adjustment of the mA and/or kV according to patient size, use of iterative reconstruction technique). RADIATION DOSE SUMMARY: CTDlvol: 18.85 mGy DLP: 583.99 mGycm COMPARISON: None FINDINGS: Airway: Midline and patent. Salivary glands: Unremarkable. Lymph nodes: Mild reactive enlargement of multiple cervical lymph nodes. Thyroid: Unremarkable. Vasculature: Carotid arteries and internal jugular veins are unremarkable. Orbits: Unremarkable at visualized levels. Paranasal sinuses and mastoids: Grossly clear at visualized levels. Lung apices: Clear. Upper mediastinum: Visualized mediastinum is unremarkable. Bones: Mild degenerative changes of the spine. Other: CT/Soft Tissue Neck WITH Contrast IMPRESSION: NORMAL CONTRAST-ENHANCED CT OF THE SOFT TISSUES OF THE NECK. Reading Location: [place] [address] CC: Dr. Yosi Chaney MD; Dr. Uriel Lovelace DO Metal Sander: Signed Normal [facility] White blood cell (WBC) count Ordered By: Yosi Chaney on 04-07-2025 WBC (Bld) [#/Vol] 6.8 10*3/uL 4.4-11.0 [facility] CNPNon [facility]18-2024 [facility] ([id number]) 1965 F Date Time Provider Department 08/18/24 ISI LAWRENCE EM During your visit today, we recorded the following information about you: Stafford Merced 08/18/2024 5:24 PM Signed Lvm for pt stating that they have a referral to see an endocrine dietitian. Provided number to call and schedule. Allergies As of Date: 08/18/2024 (No Known Allergies) Date Reviewed: 06/19/2024 Reviewed by: Isi Lawrence MD - Fully Assessed Reason for Visit: Appointment [186] Prescriptions as of 08/18/2024 - semaglutide, weight loss, (WEGOVY) 0.25 mg/0.5 mL pen injector Inject 0.5 mL subcutaneously one time a week. - semaglutide, weight loss, (WEGOVY) 0.5 mg/0.5 mL pen injector Inject 0.5 mL subcutaneously one time a week. To start after completing 0.25 mg dose - ferrous sulfate 325 mg (65 mg iron) tablet Take 325 mg by mouth daily with breakfast. - APPLE CIDER VINEGAR ORAL Take 2 Each by mouth once daily. 2 gummiesfdaily Problem List As Of Date 08/18/2024 Noted Resolved OBESITY NOS [E66.9] 09/28/2008 FLATUL/ERUCTAT/GAS PAIN [R14.3, R14.1, R14.2] 09/28/2008 Hypercholesteremia [E78.00] 02/26/2014 Obesity [E66.9] 02/26/2014 Heel pain [M79.673] 02/26/2014 Hyperthyroidism [E05.90] 04/25/2022 Multiple thyroid nodules [E04.2] 04/25/2022 Encounter Status:Closed by MERCED RIVERA on 08/18/[address] [facility] T3 SerPl-mCncon 04-15-2024 T3 [Mass/Vol] 110 ng/dL Normal 79-[address] [facility] Comment on above: Order Comment: Speci men Type: BLOOD SPECIMEN Ordering Facility: [facility] Address: [address] [place] [address] Performed By: #### 3 053-6, 3024-7, 3 #### [facility] CLIA [id number] [address] [place] [address] [place] T4 Free SerPl-mCncon 024 Free T4 [Mass/Vol] 1.4 ng/dL Normal 0.9-1.7 [facility] Comment on above: Order Comment: Speci men Type: BLOOD SPECIMEN Ordering Facility: [facility] Address: [address] [place] [address] Performed By: #### 3 053-6, 3024-7, 3 #### [facility] CLIA [id number] [address] [place] [address] [place] TSH SerPl-aCncon 04-15-2024 TSH Qn 3.890 m[IU]/L Normal 0.270-4.[address] [facility] Comment on above: Order Comment: Speci men Type: BLOOD SPECIMEN Ordering Facility: [facility] Address: [address] [place] [address] Performed By: #### 3 053-6, 3024-7, 3016-3 #### [facility] CLIA [id number] [address] [place] [address] [place] [address] [place] US THYROID/PARATHYROIDon US THYROID/PARATHYROID * * *Final Report * * * DATE OF EXAM: Oct 22 2022 9:00AM MDU 1048 - US THYROID/PARATHYROID / PROCEDURE REASON: E04.1-Thyroid nodule * * * * Physician Interpretation * * * * EXAMINATION: THYROID ULTRASOUND CLINICAL HISTORY: Thyroid nodule previously noted bilateral thyroid nodules are not seen on ultrasound scanning prior to the expected thyroid biopsy TECHNIQUE: Sonography and Doppler imaging of the thyroid was performed. Images were obtained and stored in a permanent archive. MQ: UST_1 COMPARISON: 04/12/2022 ultrasound. RESULT: Right Lobe: 4.5 x 1.4 x 1.3 cm; homogeneous echogenicity, expected vascular flow. Left Lobe: 4.2 x 1.0 x 1.3 cm; homogeneous echogenicity, expected vascular flow. Isthmus: 0.2 cm The most suspicious thyroid nodule(s) (up to four) as below: Nodules: None Patient came to have bilateral nodules biopsied. On scanning prior to expected biopsy no definite nodules were seen. The suspected nodule in the caudal aspect of the left lobe seen on the previous ultrasound images is not seen today. The suspected nodule posteriorly in the right lobe is not seen today. There is slightly diminished echogenicity of the posterior aspect of the right lobe which is thought to be due to sound attenuation due to tissue. No rounded or masslike area is seen to suggest the presence of a nodule in this region. I personally scanned the thyroid, along with 2 ultrasound technologists. Permanent ultrasound images were recorded. IMPRESSION: No thyroid nodule is found on repeat scanning. Follow-up ultrasound can be performed in one year if desired. Metal Sander: LINDA Transcribe Date/Time: Oct 22 2022 12:15P Dictated by : RD PEDERSON MD This examination was interpreted and the report reviewed and electronically signed by: RD PEDERSON MD on Oct 22 2022 1:13PM EST [id number] CN [facility] THYROID/PARATHYROID (POC) ENDO USE ONLYon 09-18-2022 [facility] PEMA SCREENINGon 05-31-2022 [facility] US THYROID/PARATHYROIDon [facility] Vital Signs Date Time Vital Sign Value Performing Clinician Faci lity 04-07-2025 10:00-0400 Body temperature 97.9 [degF] Yosi Chaney MD Work Phone: 2(613)[phone] [place] [address] 04-07-2025 10:00-0400 Diastolic blood pressure 74 mm[Hg] Yosi Chaney MD Work Phone: 6(959)316-724452 [address] 04-07-2025 10:00-0400 Heart rate 83 /min Yosi Chaney MD Work Phone: 4(274)650-401252 [address] 04-07-2025 10:00-0400 Respiratory rate 16 /min Yosi Chaney MD Work Phone: 4(243)[phone] [place] [address] 04-07-2025 10:00-0400 SaO2% (BldA) [Mass fraction] 96 % Yosi Chaney MD Work Phone: [facility] 04-07-2025 10:00-0400 Systolic blood pressure 128 mm[Hg] Yosi Chaney MD Work Phone: [facility] 04-07-2025 07:31-0400 Body height 154.94 cm Yosi Chaney MD Work Phone: 1(531)147-823809 [place] [address] 04-07-2025 07:31-0400 Body mass index (BMI) [Ratio] 43.2 kg/m2 Yosi Chaney MD Work Phone: 2(862)[phone] [place] [address] 04-07-2025 07:31-0400 Body weight 103.87 kg Yosi Chaney MD Work Phone: 1(464)[phone] [place] [address] 06-19-2024 09:06-0400 Body mass index (BMI) [Ratio] 43.23 kg/m2 Isi Lawrence MD Work Phone: [facility] 06-19-2024 09:06-0400 Body weight 103.78 kg Isi Lawrence MD Work Phone: [facility] 01-30-2023 10:00-0400 Body height 154.9 cm Dex Munguia MD Work Phone: [facility] 01-30-2023 10:00-0400 Body weight 96.62 kg Dex Munguia MD Work Phone: [facility] 01-30-2023 10:00-0400 Diastolic blood pressure 86 mm[Hg] Dex Munguia MD Work Phone: [facility] 01-30-2023 10:00-0400 Heart rate 84 /min Dex Munguia MD Work Phone: [facility] 01-30-2023 10:00-0400 SaO2% (BldA) [Mass fraction] 100 % Dex Munguia MD Work Phone: [facility] 01-30-2023 10:00-0400 Systolic blood pressure 129 mm[Hg] Dex Munguia MD Work Phone: [facility] 09-18-2022 09:12-0500 Body height 155.4 cm Denita López MD Work Phone: [facility] 09-18-2022 09:12-0500 Body weight 88.45 kg Denita López MD Work Phone: [facility] 09-18-2022 09:12-0500 Diastolic blood pressure 79 mm[Hg] Denita López MD Work Phone: [facility] 09-18-2022 09:12-0500 Heart rate 66 /min Denita López MD Work Phone: [facility] 09-18-2022 09:12-0500 Respiratory rate 16 /min Denita López MD Work Phone: [facility] 09-18-2022 09:12-0500 SaO2% (BldA) [Mass fraction] 100 % Denita López MD Work Phone: [facility] 09-18-2022 09:12-0500 Systolic blood pressure 114 mm[Hg] Denita López MD Work Phone: [facility] 07-31-2022 10:37-0400 Body height 155.4 cm Dex Munguia MD Work Phone: [facility] 07-31-2022 10:37-0400 Body weight 85.28 kg Dex Munguia MD Work Phone: [facility] 07-31-2022 10:37-0400 Diastolic blood pressure 76 mm[Hg] Dex Munguia MD Work Phone: [facility] 07-31-2022 10:37-0400 Heart rate 68 /min Dex Munguia MD Work Phone: [facility] 07-31-2022 10:37-0400 SaO2% (BldA) [Mass fraction] 98 % Dex Munguia MD Work Phone: [facility] 07-31-2022 10:37-0400 Systolic blood pressure 107 mm[Hg] Dex Munguia MD Work Phone: [facility] 04-25-2022 15:10-0400 Body height 154.9 cm Dex Munguia MD Work Phone: [facility] 04-25-2022 15:10-0400 Body weight 86 kg Dex Munguia MD Work Phone: [facility] 04-25-2022 15:10-0400 Diastolic blood pressure 73 mm[Hg] Dex Munguia MD Work Phone: [facility] 04-25-2022 15:10-0400 Heart rate 94 /min Dex Munguia MD Work Phone: [facility] 04-25-2022 15:10-0400 SaO2% (BldA) [Mass fraction] 98 % Dex Munguia MD Work Phone: [facility] 04-25-2022 15:10-0400 Systolic blood pressure 120 mm[Hg] Dex Munguia MD Work Phone: [facility] 04-16-2022 13:33-0400 Body temperature 98.2 [degF] Rachel Lau MD Work Phone: [facility] 04-16-2022 13:33-0400 Body weight 86.82 kg Rachel Lau MD Work Phone: [facility] 04-16-2022 13:33-0400 Diastolic blood pressure 72 mm[Hg] Rachel Lau MD Work Phone: [facility] 04-16-2022 13:33-0400 Heart rate 90 /min Rachel Lau MD Work Phone: [facility] 04-16-2022 13:33-0400 SaO2% (BldA) [Mass fraction] 98 % Rachel Lau MD Work Phone: [facility] 04-16-2022 13:33-0400 Systolic blood pressure 118 mm[Hg] Rachel Lau MD Work Phone: [facility] 04-02-2022 10:05-0400 Body height 155 cm Lucille Zurawick PROCESS SUPERVISOR.IRRIGATIONIST Work Phone: [facility] 04-02-2022 10:05-0400 Body weight 87.56 kg Lucille Zurawick PROCESS SUPERVISOR.IRRIGATIONIST Work Phone: [facility] 04-02-2022 10:05-0400 Diastolic blood pressure 64 mm[Hg] Lucille Zurawick PROCESS SUPERVISOR.IRRIGATIONIST Work Phone: [facility] 04-02-2022 10:05-0400 Heart rate 64 /min Lucille Zurawick PROCESS SUPERVISOR.IRRIGATIONIST Work Phone: [facility] 04-02-2022 10:05-0400 Respiratory rate 16 /min Lucille Zurawick PROCESS SUPERVISOR.IRRIGATIONIST Work Phone: [facility] 04-02-2022 10:050400 Systolic blood pressure 120 mm[Hg] Lucille Callahan KENNA Work Phone: [facility] Encounters Encounter Date Encounter Type Care Provider Facility Start: 04-07-2025 End: 04-07-2025 Emergency department patient visit Yosi Chaney MD Work Phone: -Emergency Department Work Phone: Start: 08-18-2024 End: 08-18-2024 Telephone encounter Isi Lawrence MD Work Phone: [facility] [place] Comment on above: Appointment Start: 06-29-2024 End: 06-29-2024 ambulatory Isi Lawrence MD Work Phone: [facility] Comment on above: Prescription Start: 06-19-2024 End: 06-19-2024 ambulatory Isi Lawrence MD Work Phone: [facility] Comment on above: Severe obesity (BMI >= 40) ([facility]) (Primary Dx); Sleep apnea-like behavior; Insulin resistance; Dyslipidemia Start: 06-19-2024 End: 06-19-2024 Telemedicine consultation with patient Isi Lawrecne MD Work Phone: [facility] Start: 04-20-2024 End: 04-20-2024 ambulatory Dex Munguia MD Work Phone: Endocrinology Comment on above: Abnormal results of thyroid function studies (Primary Dx); Multiple thyroid nodules; Class 3 severe obesity with body mass index (BMI) of 40.0 to 44.9 in adult, unspecified obesity type, unspecified whether serious comorbidity present (HCC) Start: 04-20-2024 End: 04-20-2024 Telemedicine consultation with patient Dex Munguia MD Work Phone: Endocrinology Start: 04-15-2024 End: 04-15-2024 ambulatory DEX MUNGUIA Facility:[facility] Start: 04-06-2024 ambulatory Dex Munguia MD Work Phone: Endocrinology Start: 04-06-2024 Follow-up encounter Dex Holloway i, MD Work Phone: Endocrinology Comment on above: 6 month follow up bl ood test Start: 01-30-2023 End: 01-30-2023 Patient encounter procedure Dex Munguia MD Work Phone: Endocrinology Comment on above: Multiple thyroid nod ules (Primary Dx); Abnormal results of thyroid function studies Start: 01-12-2023 Orders Only Dex Munguia MD Work Phone: Endocrinology Comment on above: Abnormal results of thyroid function studies (Primary Dx) Start: 01-07-2023 Telephone encounter Dex Holloway i, MD Work Phone: Endocrinology Comment on above: Patient Question (La bs and Upcoming Appt) Start: 10-22-2022 ambulatory UNKNOWN PROVIDER [facility]ili [facility] Start: 10-22-2022 End: 10-22-2022 Subsequent hospital visit by physician Rd Pederson MD Work Phone: [facility] Comment on above: Thyroid nodule [E04. 1] Start: 09-25-2022 Orders Only Dex Munguia MD Work Phone: Endocrinology Comment on above: Multiple thyroid nod ules (Primary Dx) Thyroid nodule (Prim ronnell Dx) Start: 09-19-2022 Telephone encounter Denita López MD Work Phone: Endocrinology Comment on above: Results Start: 09-18-2022 End: 09-18-2022 Patient encounter procedure Denita López MD Work Phone: Endocrinology Comment on above: Multiple thyroid nod ules (Primary Dx) Start: 07-31-2022 End: 07-31-2022 Patient encounter procedure Dex Munguia MD Work Phone: Endocrinology Comment on above: Multiple thyroid nod ules (Primary Dx); Abnormal results of thyroid function studies Start: 06-13-2022 Orders Only Dex Munguia MD Work Phone: Endocrinology Comment on above: Hyperthyroidism (Rosie isabela Dx) Start: 05-31-2022 Documentation procedure Mammog marixa Coordinator [facility] Start: 05-31-2022 Letter encounter Mammography Coordinator [facility] Department Start: 05-31-2022 End: 05-31-2022 Patient encounter status Screen Wstr Mammogram Start: 05-31-2022 End: 05-31-2022 Subsequent hospital visit by physician Screen Mammo [facility] Comment on above: Wellness examination [Z00.00] Start: 05-29-2022 Orders Only Dex Munguia MD Work Phone: Endocrinology Start: 05-28-2022 End: 05-28-2022 Subsequent hospital visit by physician [facility] Start: 05-28-2022 End: 05-28-2022 Subsequent hospital visit by physician [facility] Comment on above: Hyperthyroidism [E05 .90] Start: 05-09-2022 Telephone encounter Taryn rajput (Pss) [facility] Comment on above: Nm Pet Request Hyperthyroidism (Rosie isabela Dx); Multiple thyroid nodules Start: 05-07-2022 Orders Only Dex Munguia MD Work Phone: Endocrinology Comment on above: Hyperthyroidism (Rosie isabela Dx) THYROID NON ENDO-MD Start: 05-05-2022 Orders Only Dex Munguia MD Work Phone: Endocrinology Comment on above: Hyperthyroidism (Rosie isabela Dx) Start: 04-25-2022 End: 04-25-2022 Patient encounter procedure Dex Munguia MD Work Phone: Endocrinology Comment on above: Multiple thyroid nod ules (Primary Dx); Hyperthyroidism Start: 04-16-2022 End: 04-16-2022 Patient encounter procedure Rachel Lau MD Work Phone: General Surgery Comment on above: Abnormal ultrasound of thyroid gland (Primary Dx); Hyperthyroid Start: 04-12-2022 End: 04-12-2022 Subsequent hospital visit by physician Us [facility] Wstr Mob 2 Work Phone: Radiology Comment on above: Hyperthyroidism [E05 .90] Start: 04-04-2022 Telephone encounter Lucille mayo APRN.CNP Work Phone: [facility] [place] Comment on above: Results Start: 04-02-2022 End: 04-02-2022 Patient encounter procedure Lucille Callahan APRN.IRRIGATIONIST Work Phone: [facility] Comment on above: Wellness examination (Primary Dx); Fatigue, unspecified type; Post-nasal drainage; Obesity, Class II, BMI 35-39.9; Dysphagia, unspecified type Start: 04-02-2022 End: 04-02-2022 Patient encounter status Lucille Callahan APRN.IRRIGATIONIST Work Phone: [facility] Start: 03-07-2022 Distance Health (Vis it Summary) [facility] Provider External-[facility] Comment on above: Acute sinusitis, uns pecified Start: 03-07-2022 External Contact [facility] Provider EXTERNAL-NON [facility] Start: 02-03-2021 End: 02-03-[address] [facility]-Immunizations Procedures Date Procedure Procedure Detail Performing Clinician Start: 04-07-2025 Estimated creatinine clearance Yosi Chaney MD Work Phone: Start: 04-07-2025 CT of soft tissues o f neck with contrast Yosi Chaney MD Work Phone: Start: 09-18-2022 Us soft tissue head & neck real time imge docm Denita López MD Work Phone: Start: 05-31-2022 End: 05-31-2022 Screening mammography bi 2-view breast inc cad Lucille Callahan PROCESS SUPERVISOR.IRRIGATIONIST Work Phone: Start: 04-12-2022 Us soft tissue head & neck real time imge docm Lucille Callahan APRN.IRRIGATIONIST Work Phone: Start: 04-04-2022 Lipid 1996 panel - S mame or Plasma Dex Munguia MD Work Phone: Start: 04-02-2022 Adult depression scr eening assessment Lucille Callahan PROCESS SUPERVISOR.IRRIGATIONIST Work Phone: Start: 05-26-2020 Mammography Lao P rovider Start: 04-13-2020 Colonoscopy Lao P rovider Plan of Treatment Date Care Activity Detail Author Start: 04-13-2030 Colonoscopy COLONOSCOPY [facility] Start: 04-13-2030 COLORECTAL CANCER SCREENING COLORECTAL CANCER SCREENING [facility] Start: 04-13-2030 Screening for malignant neoplasm of colon [facility] Start: 04-04-2027 Lipid panel Lipid Screening [facility] Start: 04-04-2027 LIPID SCREEN LIPID SCREEN [facility] Start: 04-07-2025 [facility] Start: 04-04-2025 DIABETES SCREEN DIABETES SCREEN [facility] Start: 04-04-2025 Diabetes Screening Diabetes Screening [facility] Start: 07-12-2024 Covid-19 Vaccine () Covid-19 Vaccine () [facility] Start: 07-12-2024 Influenza vaccination [facility] Start: 04-20-2024 End: 04-20-2024 Follow-up encounter 04/20/2024 9:20 AM EDT [facility] Endocrinology [address] [address] Dex Munguia MD [address] [place], [place] [id number] followup Endocrinology Comment on above: followup Start: 04-07-2024 End: 07-07-2024 Thyrotropin [Units/volume] in Serum or Plasma THYROID STIMULATING HORMONE Lab Routine Abnormal results of thyroid function studies Expected: 04/07/2024, Expires: 07/07/2024 [facility] Work Phone: Comment on above: Expected: 04/07/2024, Expires: Start: 04-07-2024 End: 07-07-2024 Thyroxine (T4) free [Mass/volume] in Serum or Plasma T4 FREE/FREE THYROXINE Lab Routine Abnormal results of thyroid function studies Expected: 04/07/2024, Expires: 07/07/2024 [facility] Comment on above: Expected: 04/07/2024, Expires: Start: 04-07-2024 End: 07-07-2024 Triiodothyronine (T3) [Mass/volume] in Serum or Plasma T3 Lab Routine Hyperthyroidism Expected: 04/07/2024, Expires: 07/07/2024 [facility] Comment on above: Expected: 04/07/2024, Expires: Start: 11-11-2023 Behavioral Health Screening Behavioral Health Screening [facility] Start: 08-02-2023 End: 10-02-2023 Thyrotropin [Units/volume] in Serum or Plasma TSH BLD Lab Routine Multiple thyroid nodules Abnormal results of thyroid function studies Expected: 08/02/2023 (Approximate), Expires: 10/02/2023 [facility] Work Phone: Comment on above: Expected: 08/02/2023 (Approximate), Expi res: 10/02/2023 Start: 08-02-2023 End: 10-02-2023 Thyroxine (T4) free [Mass/volume] in Serum or Plasma T4 FREE/FREE THYROX Lab Routine Multiple thyroid nodules Abnormal results of thyroid function studies Expected: 08/02/2023 (Approximate), Expires: 10/02/2023 [facility] Work Phone: Comment on above: Expected: 08/02/2023 (Approximate), Expi res: 10/02/2023 Start: 07-12-2023 Covid-19 Vaccine () Covid-19 Vaccine () [facility] Start: 05-31-2023 Mammography MAMMOGRAM [facility] Start: 05-31-2023 Screening for malignant neoplasm of breast Mammogram Screening [facility] Start: 04-02-2023 Adult depression screening assessment DEPRESSION SCREENING [facility] Start: 04-02-2023 ANNUAL PCP TEAM CHRONIC DISEASE VISIT ANNUAL PCP TEAM CHRONIC DISEASE VISIT [facility] Start: 04-02-2023 HEPATITIS C SCREENING HEPATITIS C SCREENING [facility] Comment on above: Postponed from 1984 (Declined at t his time) Start: 04-02-2023 HIV SCREENING HIV SCREENING [facility] Comment on above: Postponed from 1984 (Declined at t his time) Start: 04-02-2023 Urine microalbumin profile DTAP,TDAP,TD (1 - Tdap) [facility] Comment on above: Postponed from 1985 (Declined at t his time) Start: 01-12-2023 End: 03-14-2023 Thyrotropin [Units/volume] in Serum or Plasma TSH BLD Lab Routine Abnormal results of thyroid function studies Expected: 01/12/2023, Expires: 03/14/2023 [facility] Work Phone: Comment on above: Expected: 01/12/2023, Expires: 3 Start: 01-12-2023 End: 03-14-2023 Thyroxine (T4) free [Mass/volume] in Serum or Plasma T4 FREE/FREE THYROX Lab Routine Abnormal results of thyroid function studies Expected: 01/12/2023, Expires: 03/14/2023 [facility] Work Phone: Comment on above: Expected: 01/12/2023, Expires: Start: 01-12-2023 End: 03-14-2023 Triiodothyronine (T3) [Mass/volume] in Serum or Plasma T3 BLD Lab Routine Abnormal results of thyroid function studies Expected: 01/12/2023, Expires: 03/14/2023 [facility] Work Phone: Comment on above: Expected: 01/12/2023, Expires: 3 Start: 11-11-2022 DEPRESSION ASSESSMENT DEPRESSION ASSESSMENT [facility] Start: 09-20-2022 End: 11-20-2022 Thyrotropin [Units/volume] in Serum or Plasma TSH BLD Lab Routine Multiple thyroid nodules Abnormal results of thyroid function studies Expected: 09/20/2022 (Approximate), Expires: 11/20/2022 [facility] Work Phone: Comment on above: Expected: 09/20/2022 (Approximate), Expi res: 11/20/2022 Start: 09-20-2022 End: 11-20-2022 Thyroxine (T4) free [Mass/volume] in Serum or Plasma T4 FREE/FREE THYROX Lab Routine Multiple thyroid nodules Abnormal results of thyroid function studies Expected: 09/20/2022 (Approximate), Expires: 11/20/2022 [facility] Work Phone: Comment on above: Expected: 09/20/2022 (Approximate), Expi res: 11/20/2022 Start: 09-20-2022 End: 11-20-2022 Triiodothyronine (T3) [Mass/volume] in Serum or Plasma T3 BLD Lab Routine Multiple thyroid nodules Abnormal results of thyroid function studies Expected: 09/20/2022 (Approximate), Expires: 11/20/2022 [facility] Work Phone: Comment on above: Expected: 09/20/2022 (Approximate), Expi res: 11/20/2022 Start: 07-14-2022 End: 09-13-2022 Thyrotropin [Units/volume] in Serum or Plasma TSH BLD Lab Routine Hyperthyroidism Expected: 07/14/2022 (Approximate), Expires: 09/13/2022 [facility] Work Phone: Comment on above: Expected: 07/14/2022 (Approximate), Expi res: 09/13/2022 Start: 07-14-2022 End: 09-13-2022 Thyroxine (T4) free [Mass/volume] in Serum or Plasma T4 FREE/FREE THYROX Lab Routine Hyperthyroidism Expected: 07/14/2022 (Approximate), Expires: 09/13/2022 [facility] Work Phone: Comment on above: Expected: 07/14/2022 (Approximate), Expi res: 09/13/2022 Start: 07-14-2022 End: 09-13-2022 Triiodothyronine (T3) [Mass/volume] in Serum or Plasma T3 BLD Lab Routine Hyperthyroidism Expected: 07/14/2022 (Approximate), Expires: 09/13/2022 [facility] Work Phone: Comment on above: Expected: 07/14/2022 (Approximate), Expi res: 09/13/2022 Start: 07-12-2022 Influenza vaccination [facility] Start: 07-05-2022 End: 09-04-2022 VITAMIN D 25 HYDROXY VITAMIN D 25 HYDROXY Lab Routine Vitamin D deficiency Expected: 07/05/2022, Expires: 09/04/2022 [facility] Work Phone: Comment on above: Expected: 07/05/2022, Expires: 2 Start: 05-05-2022 End: 07-05-2022 T3 BLD T3 BLD Lab Routine Hyperthyroidism Expected: 05/05/2022, Expires: 07/05/2022 [facility] Work Phone: Comment on above: Expected: 05/05/2022, Expires: 2 Start: 05-05-2022 End: 07-05-2022 T4 FREE/FREE THYROX T4 FREE/FREE THYROX Lab Routine Hyperthyroidism Expected: 05/05/2022, Expires: 07/05/2022 [facility] Work Phone: Comment on above: Expected: 05/05/2022, Expires: 2 Start: 05-05-2022 End: 07-05-2022 Thyrotropin [Units/volume] in Serum or Plasma TSH BLD Lab Routine Hyperthyroidism Expected: 05/05/2022, Expires: 07/05/2022 [facility] Work Phone: Comment on above: Expected: 05/05/2022, Expires: 2 Start: 05-05-2022 End: 07-05-2022 Triiodothyronine (T3) Free [Mass/volume] in Serum or Plasma [facility] Work Phone: Comment on above: Expected: 05/05/2022, Expires: 2 Start: 04-25-2022 End: 06-25-2022 Thyroglobulin and Thyrogobulin Ab panel - Serum or Plasma THYROGLOBULIN BLD Lab Routine Hyperthyroidism Expected: 04/25/2022, Expires: 06/25/2022 [facility] Work Phone: Comment on above: Expected: 04/25/2022, Expires: 2 Start: 04-25-2022 End: 06-25-2022 THYROID PEROXIDASE ANTIBODY BLOOD THYROID PEROXIDASE ANTIBODY BLOOD Lab Routine Hyperthyroidism Expected: 04/25/2022, Expires: 06/25/2022 [facility] Work Phone: Comment on above: Expected: 04/25/2022, Expires: 2 Start: 04-25-2022 End: 06-25-2022 THYROID STIMULATING IMMUNOGLOBULIN BLOOD THYROID STIMULATING IMMUNOGLOBULIN BLOOD Lab Routine Hyperthyroidism Expected: 04/25/2022, Expires: 06/25/2022 [facility] Work Phone: Comment on above: Expected: 04/25/2022, Expires: 2 Start: 04-25-2022 End: 06-25-2022 Thyrotropin [Units/volume] in Serum or Plasma TSH BLD Lab Routine Hyperthyroidism Expected: 04/25/2022, Expires: 06/25/2022 [facility] Work Phone: Comment on above: Expected: 04/25/2022, Expires: 2 Start: 04-25-2022 End: 06-25-2022 Thyroxine (T4) free [Mass/volume] in Serum or Plasma T4 FREE/FREE THYROX Lab Routine Hyperthyroidism Expected: 04/25/2022, Expires: 06/25/2022 [facility] Work Phone: Comment on above: Expected: 04/25/2022, Expires: 2 Start: 04-25-2022 End: 06-25-2022 Triiodothyronine (T3) [Mass/volume] in Serum or Plasma T3 BLD Lab Routine Hyperthyroidism Expected: 04/25/2022, Expires: 06/25/2022 [facility] Work Phone: Comment on above: Expected: 04/25/2022, Expires: 2 Start: 04-02-2022 End: 06-02-2022 CBC panel - Blood by Automated count CBC Lab Routine Fatigue, unspecified type Expected: 04/02/2022, Expires: 06/02/2022 [facility] Work Phone: Comment on above: Expected: 04/02/2022, Expires: 2 Start: 04-02-2022 End: 06-02-2022 Comprehensive metabolic 2000 panel - Serum or Plasma COMP METABOLIC PANEL Lab Routine Fatigue, unspecified type Expected: 04/02/2022, Expires: 06/02/2022 [facility] Work Phone: Comment on above: Expected: 04/02/2022, Expires: 2 Start: 04-02-2022 End: 06-02-2022 FERRITIN BLD FERRITIN BLD Lab Routine Fatigue, unspecified type Expected: 04/02/2022, Expires: 06/02/2022 [facility] Work Phone: Comment on above: Expected: 04/02/2022, Expires: 2 Start: 04-02-2022 End: 06-02-2022 Hemoglobin A1c/Hemoglobin.total in Blood HGB A1C Lab Routine Fatigue, unspecified type Expected: 04/02/2022, Expires: 06/02/2022 [facility] Work Phone: Comment on above: Expected: 04/02/2022, Expires: 2 Start: 04-02-2022 End: 06-02-2022 IRON + TIBC IRON + TIBC Lab Routine Fatigue, unspecified type Expected: 04/02/2022, Expires: 06/02/2022 [facility] Work Phone: Comment on above: Expected: 04/02/2022, Expires: 2 Start: 04-02-2022 End: 06-02-2022 LIPID PANEL BASIC LIPID PANEL BASIC Lab Routine Fatigue, unspecified type Expected: 04/02/2022, Expires: 06/02/2022 [facility] Work Phone: Comment on above: Expected: 04/02/2022, Expires: 2 Start: 04-02-2022 End: 06-02-2022 T3 BLD T3 BLD Lab Routine Fatigue, unspecified type Dysphagia, unspecified type Expected: 04/02/2022, Expires: 06/02/2022 [facility] Work Phone: Comment on above: Expected: 04/02/2022, Expires: 2 Start: 04-02-2022 End: 06-02-2022 T4 FREE/FREE THYROX T4 FREE/FREE THYROX Lab Routine Fatigue, unspecified type Dysphagia, unspecified type Expected: 04/02/2022, Expires: 06/02/2022 [facility] Work Phone: Comment on above: Expected: 04/02/2022, Expires: 2 Start: 04-02-2022 End: 06-02-2022 Thyrotropin [Units/volume] in Serum or Plasma TSH BLD Lab Routine Fatigue, unspecified type Dysphagia, unspecified type Expected: 04/02/2022, Expires: 06/02/2022 [facility] Work Phone: Comment on above: Expected: 04/02/2022, Expires: 2 Start: 04-02-2022 End: 06-02-2022 VITAMIN B12 BLOOD VITAMIN B12 BLOOD Lab Routine Fatigue, unspecified type Expected: 04/02/2022, Expires: 06/02/2022 [facility] Work Phone: Comment on above: Expected: 04/02/2022, Expires: 2 Start: 04-02-2022 End: 06-02-2022 VITAMIN D 25 HYDROXY VITAMIN D 25 HYDROXY Lab Routine Fatigue, unspecified type Expected: 04/02/2022, Expires: 06/02/2022 [facility] Work Phone: Comment on above: Expected: 04/02/2022, Expires: 2 Start: 11-11-2021 DEPRESSION ASSESSMENT DEPRESSION ASSESSMENT [facility] Start: 07-27-2021 COVID-19 VACCINE (3 - Booster for Pfizer series) COVID-19 VACCINE (3 - Booster for Pfizer series) [facility] Start: 05-26-2021 Mammography MAMMOGRAM [facility] Start: 04-21-2021 COVID-19 VACCINE (3 - Booster for Pfizer series) COVID-19 VACCINE (3 - Booster for Pfizer series) [facility] Start: 08-03-2018 LIPID SCREEN LIPID SCREEN [facility] Start: 01-23-2018 PAP TESTING PAP TESTING [facility] Start: 01-23-2018 Screening for malignant neoplasm of cervix Pap Testing [facility] Start: 08-03-2016 DIABETES SCREEN DIABETES SCREEN [facility] Start: 2016 SHINGRIX VACCINE (1 of 2) SHINGRIX VACCINE (1 of 2) [facility] Start: 01-24-2016 Screening for malignant neoplasm of cervix Cervical Cancer Screening [facility] Start: 2011 COLOGUARD (FIT-DNA) COLOGUARD (FIT-DNA) [facility] Start: [address] COLONOGRAPHY [facility] Start: 2011 FECAL OCCULT BLOOD FECAL OCCULT BLOOD [facility] Start: 2011 Screening for malignant neoplasm of colon [facility] Start: 2011 SIGMOIDOSCOPY SIGMOIDOSCOPY [facility] Start: 1996 HPV TESTING HPV TESTING [facility] Start: 1996 Screening for malignant neoplasm of cervix HPV Testing [facility] Start: 1985 Hepatitis B Vaccine (1 of 3 - 19+ 3-dose series) Hepatitis B Vaccine (1 of 3 - 19+ 3-dose series) [facility] Start: 1985 Urine microalbumin profile [facility] Start: 1984 Anxiety Screening Anxiety Screening [facility] Start: 1984 Depression Screening Depression Screening [facility] Start: 1984 HEPATITIS C SCREENING HEPATITIS C SCREENING [facility] Start: 1984 Hepatitis C screening Hepatitis C Screening [facility] Start: 1984 HIV SCREENING HIV SCREENING [facility] Start: 1984 HIV screening HIV Screening [facility] Start: 1978 Adult depression screening assessment DEPRESSION SCREENING [facility] Start: 1971 COVID-19 VACCINE (1) COVID-19 VACCINE (1) [facility] Start: 1966 HEPATITIS B (1 of 3 - 3-dose series) HEPATITIS B (1 of 3 - 3-dose series) [facility] Biopsy thyroid percutaneous core needle IMAGING GUIDED BIOPSY THYROID Radiology Routine Thyroid nodule Ordered: 09/25/2022 [facility] Work Phone: Comment on above: Ordered: 09/25/2022 CYTOLOGY NON-RING STAMPER [facility] Work Phone: Comment on above: Ordered: 09/18/2022 CYTOLOGY NON-RING STAMPER CYTOLOGY NON-GY N Lab Routine Multiple thyroid nodules Ordered: 09/25/2022 [facility] Work Phone: Comment on above: Ordered: 09/25/2022 Influenza virus A an d B RNA and SARS-CoV-2 (COVID-19) N gene panel - Respiratory specimen by JACOBO with probe detection COVID WITH FLUA+B, ROUTINE Microbiology Routine Post-nasal drainage Ordered: 04/02/2022 [facility] Work Phone: Comment on above: Ordered: 04/02/2022 Patient Education ED GERD (Adult ) ED Pain, Acute, Uncertain Cause [facility] Work Phone: Patient referral [facility] Work Phone: End: 05-02-2023 Screening mammography bi 2-view breast inc cad PEMA SCREENING Radiology Routine Wellness examination 1 Occurrences starting 04/02/2022 until 05/02/2023 [facility] Work Phone: Comment on above: 1 Occurrences starting 04/02/2022 until 05/02/2023 End: 06-08-2023 Thyroid uptake single/multiple quant measurement NM THY UPTAKE ONLY Radiology Routine Hyperthyroidism Multiple thyroid nodules 1 Occurrences starting 05/09/2022 until 06/08/2023 [facility] Work Phone: Comment on above: 1 Occurrences starting 05/09/2022 until 06/08/2023 End: 05-28-2022 Thyroid uptake single/multiple quant measurement NM THY UPTAKE ONLY Radiology Routine Hyperthyroidism Multiple thyroid nodules 1 Occurrences starting 05/28/2022 until 05/28/2022 [facility] Work Phone: Comment on above: 1 Occurrences starting 05/28/2022 until 05/28/2022 End: 06-06-2023 Thyroid uptake w/blood flow sngle/mult jenniffer marcela NM THY UPTAKE AND SCAN Radiology Routine Hyperthyroidism 1 Occurrences starting 05/07/2022 until 06/06/2023 [facility] Work Phone: Comment on above: 1 Occurrences starting 05/07/2022 until 06/06/2023 End: 05-04-2023 Us soft tissue head & neck real time imge docm US THYROID/PARATHYROID Radiology Routine Hyperthyroidism 1 Occurrences starting 04/04/2022 until 05/04/2023 [facility] Work Phone: Comment on above: 1 Occurrences starting 04/04/2022 until 05/04/2023 End: 05-20-2025 US Thyroid gland US THYROID/PARATHYROID Radiology Routine Abnormal results of thyroid function studies Multiple thyroid nodules 1 Occurrences starting 04/20/2024 until 05/20/2025 [facility] Work Phone: Comment on above: 1 Occurrences starting 04/20/2024 until 05/20/2025 [facility] Payers Date Payer Category Payer Self-pay [id number] 2021 Unknown [employer] PPO [id number] 2021-Present [phone] [address] [place] [address] PPO [id number] 2021 Unknown [employer] SS PPO [id number] 2021-Present [phone] [address] [place] [address] PPO [id number] 2021 Unknown [id number] 2013 Private Health Insurance [employer] A ETNA CHOICE POS II [id number] 2013-Present [phone] [address] [place] [address] POS [id number] Unknown [id number] Social History Date Type [facility]ail [facility] Work Phone: Start: 1965 Sex Assigned At Female [facility] Start: 02-26-2014 End: 07-31-2022 Tobacco smoking status NHIS Ex-smoker [facility] Work Phone: Start: 11-11-1985 End: 11-11-2000 History of tobacco use Current smoker [facility] Work Phone: Start: 11-11-1985 End: 11-11-2000 History of tobacco use Cigarette Smoker [facility] Work Phone: Start: 02-26-2014 End: 04-20-2024 Cigarettes smoked current (pack per day) - Reported 0.5 [facility] Start: 02-26-2014 End: 07-31-2022 Tobacco use and exposure Smokeless tobacco non-user [facility] Work Phone: Start: 04-13-2020 End: 06-19-2024 Alcohol intake Current drinker of alcohol (finding) [facility] Start: 04-13-2020 History SDOH Alcohol Comment socially [facility] Start: 02-26-2014 End: 07-31-2022 Tobacco Comment 14-15 years about 1/2 ppd [facility] Start: 1965 Sex Assigned At Not on file [facility] Start: 03-28-2022 History SDOH Alcohol Frequency 2 [facility] Start: 03-28-2022 History SDOH Alcohol Std Drinks 1 [facility] Start: 03-28-2022 History SDOH Social Connections Phone 5 [facility] Start: 03-28-2022 History SDOH Social Connections Get Together 3 [facility] Start: 03-28-2022 History SDOH Physica l Activity MPS 4 [facility] Start: 03-23-2022 End: 07-31-2022 Exposure to SARS-CoV-2 (event) Not sure [facility] Start: 04-15-2022 End: 04-25-2022 Exposure to SARS-CoV-2 (event) Yes [facility] Start: 03-28-2022 End: 04-20-2024 Social connection and isolation panel [facility] Do you belong to any clubs or organizations such as nondenominational groups, unions, fraternal or athletic groups, or school groups? No [facility] Are you now , , , , never or living with a partner? [facility] How often to you hav e a drink containing alcohol? Monthly or less [facility] How many standard dr inks containing alcohol do you have on a typical day? 1 or 2 [facility] How often do you hav e 6 or more drinks on 1 occasion? Never [facility] How hard is it for y ou to pay for the very basics like food, housing, medical care, and heating Not very hard [facility] Do you feel stress - tense, restless, nervous, or anxious, or unable to sleep at night because your mind is troubled all the time - these days [OSQ] Not at all [facility] (I/We) worried whe er (my/our) food would run out before (I/we) got money to buy more. Never true [facility] In the past 12 month s, has lack of transportation kept you from medical appointments or from getting medications? No [facility] Start: 04-07-2025 Tobacco smoking stat us NHIS Never smoked tobacco (finding) [facility] Mental Status Date Assessment Result Facility 04-07-2025 Cognitive function Level Of Cons ciousness Awake;Alert;Appropriate;Follow s Commands [facility] Work Phone: Clinical Notes 03-07-2022 to 04-07-2025 Telephone Encounter - Merced Rivera - 08/18/2024 5:23 PM EDTTelephone Encounter - Merced Rivera - 08/18/2024 5:23 PM EDTPatient Isi Shin MD - 06/19/2024 8:50 AM EDT Note Date & Type Note Facility 04-07-[address] [facility] 04-07-2025 Radiology Diagnostic study note [facility] Services [address] [place], [place] [id number] Soft Tissue Neck WITH Contrast MR#: [id number] Acct: [id number] Name: DO DE GUZMAN Rep #: [id number] : 1965 F 60 From: Alton Ceron MD PCP: Dr. Uriel Lovelace, DO Status: RE G ER Study:Soft Tissue Neck WITH Contrast Date of Exam: 04/07/25 Exam# [id number] Ordering Dr: Yosi Chaney MD PROCEDURE: SOFT TISSUE NECK WITH CONTRAST 04/07/2025 REASON FOR EXAM: LUMP IN THROAT Emesis. TECHNIQUE: CT of the soft tissues of the neck from the orbits to the upper mediastinum withintravenous contrast. CONTRAST: Isovue 370 VOLUME: 80 mL One or more dose reduction techniques were used (e.g., Automated exposure control, adjustment of the mA and/or kV according to patient size, use of iterative reconstruction technique). RADIATION DOSE SUMMARY: CTDlvol: 18.85 mGy DLP: 583.99 mGycm COMPARISON: None FINDINGS: Airway: Midline and patent. Salivary glands: Unremarkable. Lymph nodes: Mild reactive enlargement of multiple cervical lymph nodes. Thyroid: Unremarkable. Vasculature: Carotid arteries and internal jugular veins are unremarkable. Orbits: Unremarkable at visualized levels. Paranasal sinuses and mastoids: Grossly clear at visualized levels. Lung apices: Clear. Upper mediastinum: Visualized mediastinum is unremarkable. Bones: Mild degenerative changes of the spine. Other: CT/Soft Tissue Neck WITH Contrast IMPRESSION: NORMAL CONTRAST-ENHANCED CT OF THE SOFT TISSUES OF THE NECK. Reading Location: [place] [address] CC: Dr. Yosi Chaney MD; Dr. Uriel Lovelace DO ~ Metal Sander: Signed [facility] 03-11-2025 Hospital Discharge instructions Additional Instructions Return to the emergency department with difficulty swallowing, new or worsening symptoms. You may want to start [id number] omeprazole, and follow-up with gastroenterology. [facility] Work Phone: 08-18-2024 Telephone encounter Note Lvm for pt stating that they have a referral to see an endocrine dietitian. Provided number to call and schedule. [facility] 08-18-2024 Miscellaneous Notes Lvm for pt stating that they have a referral to see an endocrine dietitian. Provided number to call and schedule. documented in this encounter [facility] 06-19-2024 Instructions Isi Lawrence MD - 06/19/2024 9:23 AM EDT Start Wegovy. Starting dose is 0.25 mg injected once weekly. After 4 weeks, if you are tolerating the medication, you can increase to the 0.5 mg dose. We should follow-up within 4-8 weeks after increasing the dose. Possible side effects of this class of medications: Nausea, reflux, constipation, redness/irritation at the injection site. If you experience nausea or reflux, eating smaller meals can be helpful. Acute pancreatitis is a rare side effect, presents with severe abdominal pain, nausea/vomiting--go to ER if you experience these side effects For more information on the medication, including instructions on how to administer the medication, visit [employer] There may be special savings available for Wegovy depending on your insurance. To learn more, visit: [email or web address]/[email or web address]-an [email or web address]-savings/uvjt-tu-bhphkp.html If Wegovy is not covered by insurance or is still too expensive, we will plan to start bupropion/naltrexone. To follow-up in our office: You can call the appointment Center: [phone] to make your follow-up appointments with myself or the nurse practitioners I work with in [place], Chitra Roblero APRN.CNP or Briseida Guzman APRN.CNP. Dietitian: [phone], option # 3 Please call this number to make your appointment. You can be see one of our providers in person or virtually. Sleep Clinic: [phone] documented in this encounter [facility] 06-19-2024 History of Present illness Narrative Images from the original note were not included. [facility] VIRTUAL VISIT--INITIAL VISIT This is a virtual visit using [employer] Video Visit, switched to telephone call due to technical issues. Physical exam was able to be completed prior to transitioning to audio-only. It required patient-provider interaction for the medical decision making as documented below. I have communicated my name and active licensure. The patient's identity and physical location were verified at the time of this visit. Either the patient or their legal unit support representative has been informed of the risks and benefits of -- and alternatives to -- treatment through a remote evaluation and consents to proceed with the evaluation remotely. HISTORY OF PRESENT ILLNESS CC: medical weight loss Age: [age] year old female PMH: obesity, prediabetes, HLD, thyroid nodules, hx of thyroiditis (most recently with normal TFTs) Referred by: Dex Munguia MD Consultation requested for an opinion regarding weight management and my final recommendations will be communicated back to the requesting physician by way of shared medical record or letter via US mail. Weight history: Struggled with weight most of adult life Previous attempts at weight loss: Self-directed diet and exercise programs, commercial programs Most weight lost in past: lowest she got to was 170 lbs with WW Maximum weight: 238 lbs Current weight: 228.8 lbs Patient goal or motivation for weight loss: improve health Weight graph: Factors associated with weight gain: Family history of overweight: yes or menopause: yes Tobacco use: no Weight gain associated with shift work: no Poor quality, unrestful sleep: yes Medications may be associated with weight gain: no Diet: Typical diet Trying to IF until 11 am to 1 pm Coffee Yogurt OR pasta/meat OR beans/rice/salsa/cheese Dinner: similar to lunch with veggies Snacks: chocolate, occ popcorn or valeria crackers Has a sweet tooth Trying to limit processed foods Typical beverages: water, occ diet soda Sugar-containing beverages: no EtOH: rare Eating out/take out: 3 times per week Feel hungry frequently: no Takes more food than average to feel full: no Eat when not hungry (boredom, stress/emotional): yes Frequent cravings or preoccupation with food: yes--lots of food noise Frequently overeating or binge eating: yes overeating Portion control: sometimes larger Late night or middle of night eating: small snack Exercise/activity level: Walking sporadically Has a walking a pad Sleep: Wakes up a couple times per night from her cat 6-7 hours per night Feels tired all the time TAYLOR: never tested, +snoring CPAP: Mood, stress: Manageable Social: 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 weight watchers, Noom, medically supervised programs, etc.)? yes History of bariatric surgery or interest in bariatric surgery: no Medical history pertaining to anti-obesity medications: History of pancreatitis or gallstones: no History of kidney stones: no History of seizures: no Current opiate use: no History of glaucoma: no History of stroke, heart-related issues or uncontrolled HTN: no Personal/family history of MEN2, MTC: no History of diabetic retinopathy: no Method of contraception if woman of child bearing age: NA Review Of Systems Per HPI MEDICAL, FAMILY, and SOCIAL HISTORY (reviewed and updated in chart) ACTIVE PROBLEM LIST Obesity, Unspecified Flatulence, Eructation, and Gas Pain Hypercholesteremia Obesity Heel Pain Hyperthyroidism Multiple Thyroid Nodules Current Outpatient Medications on File Prior to Visit Medication Sig ferrous sulfate 325 mg (65 mg iron) tablet Take 325 mg by mouth daily with breakfast. APPLE CIDER VINEGAR ORAL Take 2 Each by mouth once daily. 2 gummiesfdaily No current facility-administered medications on file prior to visit. VIDEO EXAM: (if completed, performed via video enabled technology) GENERAL: alert and appropriate, in no distress, well-hydrated, well nourished, and happy, smiling, interactive PERTINENT LABORATORY AND IMAGING: All pertinent laboratory / test results were reviewed. Latest Ref Rng 09/28/2008 04/04/2022 05/04/2022 06/12/2022 07/28/2022 01/28/2023 04/15/2024 Protein, Total 6.3 - 8.0 g/dL 6.4 Albumin 3.9 - 4.9 g/dL 3.8 (L) Calcium 8.5 - 10.2 mg/dL 9.4 Bilirubin, Total 0.2 - 1.3 mg/dL 0.4 Alkaline Phosphatase 34 - 123 U/L 65 AST 13 - 35 U/L 13 ALT 7 - 38 U/L 12 Glucose 74 - 99 mg/dL 96 BUN 7 - 21 mg/dL 14 Creatinine 0.58 - 0.96 mg/dL 0.80 Sodium 136 - 144 mmol/L 142 Potassium 3.7 - 5.1 mmol/L 4.7 Chloride 97 - 105 mmol/L 103 CO2 22 - 30 mmol/L 28 Anion Gap 9 - 18 mmol/L 11 eGFR >=60 mL/min/1.73m 87 Cholesterol, Total <200 mg/dL 141 Triglyceride <150 mg/dL 48 HDL Cholesterol >39 mg/dL 33 (L) Non HDL Cholesterol <130 mg/dL 108 Fasting Time hrs 12 VLDL Cholesterol <30 mg/dL 10 TC:HDL Ratio <5.10 4.27 LDL Cholesterol <100 mg/dL 98 LDL:HDL Ratio <2.54 2.97 (H) Hemoglobin A1C 4.3 - 5.6 % 5.8 (H) Estimated Average Glucose mg/dL 120 TSH 0.270 - 4.200 mIU/L 1.270 0.023 (L) 0.011 (L) 11.500 (H) 5.570 (H) 3.090 3.890 Free T4 0.9 - 1.7 ng/dL 2.3 (H) 1.9 (H) 0.9 1.2 1.2 Legend: (L) Low (H) High ASSESSMENT: (E66.01) Severe obesity (BMI >= 40) (HCC) (primary encounter diagnosis) (G47.39) Sleep apnea-like behavior (E88.819) Insulin resistance (E78.5) Dyslipidemia - Patient comes today for treatment of overweight/obesity and its comorbidities. Patient has a BMI of 43.2 that is consistent with OBESITY CLASS 3. - Patient tried different weight loss modalities in the past including Self-directed diet and exercise programs , commercial programs. - Pertinent co-morbidities of obesity include insulin resistance, HLD. - Patient's health and quality of life are compromised due to current weight and patient is motivated for weight loss. Our goal is to treat obesity to decrease long-term medical complications, comorbidities and improve lifestyle. PLAN: - Reviewed principles of energy metabolism, caloric intake and expenditure - Goals: -- 5-10% weight loss over 6 months is reasonable -- At least 6-month commitment to losing weight - Diet: risk factors for overweight/obesity include: eating out frequently (>1 x per week), large portion sizes, calorie-dense foods, processed foods, low fiber diet, and emotional/stress eating -- Will refer to endo dietitian to discuss nutrition and identify the best approach and the individualized nutritional plan--low carb mediterranean -- Limit eating out -- Portion control -- Discussed structured eating pattern--helps to avoid severe hunger, which can contribute to larger portions, overeating, less healthy dietary choices, etc. - Pharmacotherapy: -- I have reviewed with the patient the possibility of using weight loss-promoting medications and the various options available. -- Will begin Wegovy 0.25 mg sc once weekly. Increase to 0.5 mg dose after 4 weeks if tolerating. Patient aware that prior authorization may be required. If not approved by insurance, patient agreeable to trying bupropion/naltrexone. Reviewed r/b/a of medication and risks of possibility of weight regain should medication be stopped. There is no personal or family history of MTC, MEN2. No personal history of pancreatitis or active gallbladder disease. -- Current weight-promoting medications: -- Exercise/physical activity: -- Discussed basic exercise recommendations, the role of exercise on weight loss and maintenance. Discussed the combination of aerobic and resistance exercise. -- Recommend gradual increase in exercise. Goal is 150+ minutes moderate-intensity exercise per week + strength training/resistance exercise 2 days per week. -- Sleep: -- Discussed the importance of sleep hygiene -- Recommend 7-9 hours sleep per night -- Refer to sleep medicine to r/o TAYLOR -- Behavioral: -- Discussed the effect of stress and its relationship with weight gain. Stress management is very important. -- Self monitoring: suggest home weigh-ins at least 1x/week, food journals / trackers (Food log, My Fitness Pal), activity journals / trackers ([employer]) watch, [employer], [employer] vivofit, Striiv). -- Other -- Pt will follow-up with PCP, due for general exam Orders placed: Orders Placed This Encounter CONSULT TO SLEEP MEDICINE - ADULT Standing Status: Future Standing Expiration Date: 06/19/2025 Order Specific Question: Does consulting provider have [facility] Epic access? Answer: Yes ENDOCRINOLOGY DIETITIAN VISIT (MNT) Standing Status: Future Standing Expiration Date: 06/19/2025 Scheduling Instructions: Appointment type requested: Mediterranean - low carb This order is valid for 12 months from the date of order. PLEASE SCHEDULE THIS VISIT IN YOUR [employer] ACCOUNT, OR CALL TO SCHEDULE FOLLOWS: [facility] [phone] ALL OTHER [facility] LOCATIONS [phone] Order Specific Question: Does consulting provider have [facility] Epic access? Answer: Yes semaglutide, weight loss, (WEGOVY) 0.25 mg/0.5 mL pen injector Sig: Inject 0.5 mL subcutaneously one time a week. Dispense: 2 mL Refill: 2 semaglutide, weight loss, (WEGOVY) 0.5 mg/0.5 mL pen injector Sig: Inject 0.5 mL subcutaneously one time a week. To start after completing 0.25 mg dose Dispense: 2 mL Refill: 2 I have reviewed the ROS/Questionnaire with patient and recommend the following: Pt will follow-up with PCP for chronic health issues and preventive health screenings. All questions answered today. Follow-up in 3 months Signed: Isi Lawrence MD, RD documented in this encounter [facility] 06-19-2024 Note HNO ID: [id number] Author: ISI LAWRENCE MD Service: ? Author Type: Physician Type: Progress Notes Filed: 06/19/2024 09:29 Note Text: [facility] VIRTUAL VISIT--INITIAL VISIT This is a virtual visit using [employer] Zoom Video Visit, switched to telephone call due to technical issues. Physical exam was able to be completed prior to transitioning to audio-only. It required patient-provider interaction for the medical decision making as documented below. I have communicated my name and active licensure. The patient's identity and physical location were verified at the time of this visit. Either the patient or their legal unit support representative has been informed of the risks and benefits of -- and alternatives to -- treatment through a remote evaluation and consents to proceed with the evaluation remotely. HISTORY OF PRESENT ILLNESS CC: medical weight loss Age: [age] year old female PMH: obesity, prediabetes, HLD, thyroid nodules, hx of thyroiditis (most recently with normal TFTs) Referred by: Dex Munguia MD Consultation requested for an opinion regarding weight management and my final recommendations will be communicated back to the requesting physician by way of shared medical record or letter via US mail. Weight history: Struggled with weight most of adult life Previous attempts at weight loss: Self-directed diet and exercise programs, commercial programs Most weight lost in past: lowest she got to was 170 lbs with WW Maximum weight: 238 lbs Current weight: 228.8 lbs Patient goal or motivation for weight loss: improve health Weight graph: Factors associated with weight gain: Family history of overweight: yes or menopause: yes Tobacco use: no Weight gain associated with shift work: no Poor quality, unrestful sleep: yes Medications may be associated with weight gain: no Diet: Typical diet Trying to IF until 11 am to 1 pm Coffee Yogurt OR pasta/meat OR beans/rice/salsa/cheese Dinner: similar to lunch with veggies Snacks: chocolate, occ popcorn or valeria crackers Has a sweet tooth Trying to limit processed foods Typical beverages: water, occ diet soda Sugar-containing beverages: no EtOH: rare Eating out/take out: 3 times per week Feel hungry frequently: no Takes more food than average to feel full: no Eat when not hungry (boredom, stress/emotional): yes Frequent cravings or preoccupation with food: yes--lots of food noise Frequently overeating or binge eating: yes overeating Portion control: sometimes larger Late night or middle of night eating: small snack Exercise/activity level: Walking sporadically Has a walking a pad Sleep: Wakes up a couple times per night from her cat 6-7 hours per night Feels tired all the time TAYLOR: never tested, +snoring CPAP: Mood, stress: Manageable Social: 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 weight watchers, Noom, medically supervised programs, etc.)? yes History of bariatric surgery or interest in bariatric surgery: no Medical history pertaining to anti-obesity medications: History of pancreatitis or gallstones: no History of kidney stones: no History of seizures: no Current opiate use: no History of glaucoma: no History of stroke, heart-related issues or uncontrolled HTN: no Personal/family history of MEN2, MTC: no History of diabetic retinopathy: no Method of contraception if woman of child bearing age: NA Review Of Systems Per HPI MEDICAL, FAMILY, and SOCIAL HISTORY (reviewed and updated in chart) ACTIVE PROBLEM LIST Obesity, Unspecified Flatulence, Eructation, and Gas Pain Hypercholesteremia Obesity Heel Pain Hyperthyroidism Multiple Thyroid Nodules Current Outpatient Medications on File Prior to Visit Medication Sig ferrous sulfate 325 mg (65 mg iron) tablet Take 325 mg by mouth daily with breakfast. APPLE CIDER VINEGAR ORAL Take 2 Each by mouth once daily. 2 gummiesfdaily No current facility-administered medications on file prior to visit. VIDEO EXAM: (if completed, performed via video enabled technology) GENERAL: alert and appropriate, in no distress, well-hydrated, well nourished, and happy, smiling, interactive PERTINENT LABORATORY AND IMAGING: All pertinent laboratory / test results were reviewed. Latest Ref Rng 09/28/2008 04/04/2022 05/04/2022 06/12/2022 07/28/2022 01/28/2023 04/15/2024 Protein, Total 6.3 - 8.0 g/dL 6.4 Albumin 3.9 - 4.9 g/dL 3.8 (L) Calcium 8.5 - 10.2 mg/dL 9.4 Bilirubin, Total 0.2 - 1.3 mg/dL 0.4 Alkaline Phosphatase 34 - 123 U/L 65 AST 13 - 35 U/L 13 ALT 7 - 38 U/L 12 Glucose 74 - 99 mg/dL 96 BUN 7 - 21 (more content not included)... [facility] 04-20-2024 Instructions Dex Munguia MD - 04/20/2024 9:31 AM EDT Please call [phone] to schedule the thyroid ultrasound I placed the referral for the weight management clinic. Call [phone] to schedule at your preferred location Repeat thyroid blood test in 1 year. This can be done through your primary care provider, but we can order that for you as well if you prefer documented in this encounter [facility] 04-20-2024 History of Present illness Narrative ENDOCRINOLOGY CLINIC NOTE Ms. De Guzman is a pleasant 59 year old female with no significant past medical history presented for follow-up of thyroid dysfunction HPI She reported fatigue and feeling off in 03/2022. She also reported low-grade fever, difficulty swallowing and swollen lymph nodes, and was prescribed amoxicillin. Her symptoms improved but the fatigue and difficulty swallowing remain. TFTs were checked in 03/2022 showing TSH is 0.02, FT4 2.3 and TT3 171. She had negative TSI, TPO and TG antibodies TFTs in 04/2024 showed TSH 3.22, FT4 1.4. She briefly started to have tiredness but feels fine now. She has gained some weight Thyroid nodules: Thyroid ultrasound in 04/2022 showed normal vascular flow in addition to 2 nodules. Nodule 1 was a 2.8 cm solid hypoechoic right inferior nodule, and a 1.2 cm solid taller than wide left inferior nodule with indeterminate echogenicity. FNA of the R was non diagnostic, and the L was not seen We referred her to IR but their US did not show the nodules. US was documented by IR in 10/2022 PAST MEDICAL HISTORY Diagnosis Date HPV (human papillomavirus) Hypercholesteremia Mammographic microcalcification right breast Snoring PAST SURGICAL HISTORY Procedure Laterality Date ADENOIDECTOMY PRIMARY <AGE 13 Adenoidectomy COLONOSCOPY FLX DX W/COLLJ SPEC WHEN PFRMD 04/13/2020 Colonoscopy COLPOSCOPY CERVIX UPPER/ADJACENT VAGINA Colposcopy CONIZATION CERVIX W/WO D&C RPR ELTRD EXC LEEP-Cervix STEREOTACTIC CORE BIOPSY 07/29/09 right breast, benign TONSILLECTOMY PRIMARY/SECONDARY <AGE 13 Tonsillectomy FAMILY HISTORY Problem Relation Age of Onset Diabetes Father Heart Mother ? valve problem Alzheimer's Disease Paternal Grandmother Heart Paternal Grandfather Social History Tobacco Use Smoking status: Former Packs/day: 0.50 Years: 15.00 Additional pack years: 0.00 Total pack years: 7.50 Types: Cigarettes Quit date: 2000 Years since quittin.4 Smokeless tobacco: Never Tobacco comments: 14-15 years about 1/2 ppd Vaping Use Vaping Use: Never used Substance Use Topics Alcohol use: Yes Comment: socially Drug use: No (Not in a hospital admission) Allergies As of Date: 04/20/2024 (No Known Allergies) Fully Assessed 10/22/2022 Current Outpatient Medications Medication Sig Dispense Refill ferrous sulfate 325 mg (65 mg iron) tablet Take 325 mg by mouth daily with breakfast. APPLE CIDER VINEGAR ORAL Take 2 Each by mouth once daily. 2 gummiesfdaily No current facility-administered medications for this visit. COMPLETE REVIEW OF SYSTEMS: Answers submitted by the patient for this visit: Core Review of Systems (Submitted on 04/20/2024) Fever : No Night sweats: No Recent unintentional weight change: No Nasal Congestion: No Hearing Loss: No Vision Disturbance: No A cough: No Difficulty Breathing?: No Chest pain: No Irregular heartbeat: No Leg Swelling: No Nausea: No Diarrhea: No Black tarry stools: No Difficulty Urinating?: No Awaken at Night More Than Once to Urinate?: Yes Joint pain or stiffness: Yes Muscle aches: No Leg or Foot Discomfort at Night?: No A rash: No Dizziness: No Headaches: No Seizures: No PHYSICAL EXAM: There were no vitals filed for this visit. General: NAD, alert and cooperative, no facial plethora Neck: supple with full ROM. There is no thyromegaly or discrete nodules Previous exam: HEENT: EOMI, no proptosis/stare or lid lag. Eye protrusion 17 mm bilaterally by Luedde exophthalmometer Cardiovascular: RRR, +S1 and S2, no MRG appreciated Lungs: Clear to auscultation bilaterally Abdomen: soft, non-tender, non-distended Extremities: No LE oedema Neuro: No tremor of outstretched hands noted. Deep tendon reflexes are normal with a normal relaxation phase. Psych: Normal affect Labs: 05/04/22 07:31 06/12/22 10:52 07/28/22 09:48 01/28/23 14:57 Free T4 1.9 (H) 0.9 1.2 1.2 TSH 0.011 (L) 11.500 (H) 5.570 (H) 3.090 T3 191 (H) 113 119 94 05/04/22 07:31 05/04/22 07:32 TSI Qualitative Negative Microsomal Antibody 1.2 Thyroglobulin Ab 2.5 Images: Thyroid ultrasound 04/2022: Right Lobe: 5.6 x 2.5 x 2.4 cm; grossly homogeneous echogenicity, expected vascular flow. Left Lobe: 4.7 x 2.3 x 2.0 cm; grossly homogeneous echogenicity, expected vascular flow. Isthmus: 0.8 cm The most suspicious thyroid nodule(s) (up to four) as below: NODULE 1: Location: Right inferior Size: 2.8 x 2.0 x 1.2 cm Characteristics: Composition: Solid or almost completely solid, 2 points Echogenicity: Hypoechoic, 2 points Shape: [id number], 0 points Margin: Ill-defined, 0 points Echogenic foci (add points for all that apply): None, 0 points Internal vascularity: present Interval growth: No prior available for comparison TI-RADS Category: TR4 ACR Recommendation: TI-RADS 4 nodule. FNA is recommended. NODULE 2: Location: Left inferior Size: 1.1 x 0.8 x 1.2 cm Characteristics: Composition: Solid or almost completely solid, 2 points Echogenicity: Echogenicity cannot be determined, 1 point Shape: [id number], 3 points Margin: Lobulated or irregular, 2 points Echogenic foci (add points for all that apply): Punctate echogenic foci, 3 points Internal vascularity: present Interval growth: No prior available for comparison TI-RADS Category: TR5 ACR Recommendation: TI-RADS 5 nodule. FNA is advised. IMPRESSION: Thyroid nodule(s) is/are present. Fine needle aspiration is recommended for one or more nodules as detailed in the synoptic report. TI-RADS Category: TR5 ACR Recommendation: TI-RADS 5 nodule. FNA is advised. ACR recommendations are strictly based on the size and imaging appearance at the time of the exam and do not consider stability or previous biopsy results. Thyroid uptake 05/2022: HISTORY: Hyperthyroidism. Multiple thyroid nodules. TECHNIQUE: 343.2 microcuries 123-I sodium iodide po. RESULT: The 4-hour neck radioiodine uptake is 0.7% (normal range, 5-15%). The 27-hour neck radioiodine uptake is 0.2% (normal range, 10-25%). Planar images demonstrate no appreciable uptake of the radiotracer by the thyroid gland. IMPRESSION: Poor radioiodine uptake by the thyroid. Findings are most suggestive of thyroiditis. Assessment and Recommendations: Ms. De Guzman is a pleasant 59-year-old woman presented for evaluation and management of hyperthyroidism and thyroid nodules. Hyperthyroidism: She reported fatigue and excessive sweating and her TFTs were checked showing low TSH and elevated T4 and T3. This was preceded by what seems to be an upper respiratory tract infection 2 months earlier. Thyroid uptake was very low consistent with thyroiditis. She developed transient hypothyroidism but her TFTs are now normal and she feels better. Her TFTs can be checked once a year, and this can be done through the primary care office. Thyroid nodules: She was found to have 2 thyroid nodules on the initial ultrasound, both met the criteria for FNA based on the MAGGIE and TI-RADS guidelines. Referred her for FNA. The initial attempt, the left nodule was not seen, and FNA of the right was nondiagnostic. We referred her to IR, and the ultrasound was documented and did not show any nodules. There was some altered echogenicity which was thought to be due to tissue attenuation I will repeat her thyroid ultrasound now. Obesity: She has been unable to lose weight and would like to meet with the weight management clinic. Referral was placed Some of the above has been copied from prior documentation on 01/30/2023 but dhillon elements reviewed, confirmed, and/or updated by me (Dex Munguia MD) on 04/20/2024 Virtual Visit (Audio/Visual)I have discussed the nature of this visit with the patient which will occur via [facility] (Phone, Virtual Visit) and she agrees to proceed with this interaction. Medical Decision Making: Problems: Moderate: 2+ stable chronic illnesses Data: Unique test result(s) reviewed: 2 Unique test(s) ordered: 1 Risk: Moderate: Moderate risk from testing/treatment Medical Decision Making Level: 4 - Moderate Dex Munguia MD documented in this encounter [facility] 04-20-2024 Note HNO ID: [id number] Author: DEX MUNGUIA MD Service: ? Author Type: Physician Type: Progress Notes Filed: 04/20/2024 09:35 Note Text: ENDOCRINOLOGY CLINIC NOTE Ms. De Guzman is a pleasant 59 year old female with no significant past medical history presented for follow-up of thyroid dysfunction HPI She reported fatigue and feeling off in 03/2022. She also reported low-grade fever, difficulty swallowing and swollen lymph nodes, and was prescribed amoxicillin. Her symptoms improved but the fatigue and difficulty swallowing remain. TFTs were checked in 03/2022 showing TSH is 0.02, FT4 2.3 and TT3 171. She had negative TSI, TPO and TG antibodies TFTs in 04/2024 showed TSH 3.22, FT4 1.4. She briefly started to have tiredness but feels fine now. She has gained some weight Thyroid nodules: Thyroid ultrasound in 04/2022 showed normal vascular flow in addition to 2 nodules. Nodule 1 was a 2.8 cm solid hypoechoic right inferior nodule, and a 1.2 cm solid taller than wide left inferior nodule with indeterminate echogenicity. FNA of the R was non diagnostic, and the L was not seen We referred her to IR but their US did not show the nodules. US was documented by IR in 10/2022 PAST MEDICAL HISTORY Diagnosis Date HPV (human papillomavirus) Hypercholesteremia Mammographic microcalcification right breast Snoring PAST SURGICAL HISTORY Procedure Laterality Date ADENOIDECTOMY PRIMARY Adenoidectomy COLONOSCOPY FLX DX W/COLLJ SPEC WHEN PFRMD 04/13/2020 Colonoscopy COLPOSCOPY CERVIX UPPER/ADJACENT VAGINA Colposcopy CONIZATION CERVIX W/WO DANSD RPR ELTRD EXC LEEP-Cervix STEREOTACTIC CORE BIOPSY 07/29/09 right breast, benign TONSILLECTOMY PRIMARY/SECONDARY Tonsillectomy FAMILY HISTORY Problem Relation Age of Onset Diabetes Father Heart Mother ? valve problem Alzheimer's Disease Paternal Grandmother Heart Paternal Grandfather Social History Tobacco Use Smoking status: Former Packs/day: 0.50 Years: 15.00 Additional pack years: 0.00 Total pack years: 7.50 Types: Cigarettes Quit date: 2000 Years since quittin.4 Smokeless tobacco: Never Tobacco comments: 14-15 years about 1/2 ppd Vaping Use Vaping Use: Never used Substance Use Topics Alcohol use: Yes Comment: socially Drug use: No (Not in a hospital admission) Allergies As of Date: 04/20/2024 (No Known Allergies) Fully Assessed 10/22/2022 Current Outpatient Medications Medication Sig Dispense Refill ferrous sulfate 325 mg (65 mg iron) tablet Take 325 mg by mouth daily with breakfast. APPLE CIDER VINEGAR ORAL Take 2 Each by mouth once daily. 2 gummiesfdaily No current facility-administered medications for this visit. COMPLETE REVIEW OF SYSTEMS: Answers submitted by the patient for this visit: Core Review of Systems (Submitted on 04/20/2024) Fever : No Night sweats: No Recent unintentional weight change: No Nasal Congestion: No Hearing Loss: No Vision Disturbance: No A cough: No Difficulty Breathing?: No Chest pain: No Irregular heartbeat: No Leg Swelling: No Nausea: No Diarrhea: No Black tarry stools: No Difficulty Urinating?: No Awaken at Night More Than Once to Urinate?: Yes Joint pain or stiffness: Yes Muscle aches: No Leg or Foot Discomfort at Night?: No A rash: No Dizziness: No Headaches: No Seizures: No PHYSICAL EXAM: There were no vitals filed for this visit. General: NAD, alert and cooperative, no facial plethora Neck: supple with full ROM. There is no thyromegaly or discrete nodules Previous exam: HEENT: EOMI, no proptosis/stare or lid lag. Eye protrusion 17 mm bilaterally by Luedde exophthalmometer Cardiovascular: RRR, +S1 and S2, no MRG appreciated Lungs: Clear to auscultation bilaterally Abdomen: soft, non-tender, non-distended Extremities: No LE oedema Neuro: No tremor of outstretched hands noted. Deep tendon reflexes are normal with a normal relaxation phase. Psych: Normal affect Labs: 05/04/22 07:31 06/12/22 10:52 07/28/22 09:48 01/28/23 14:57 Free T4 1.9 (H) 0.9 1.2 1.2 TSH 0.011 (L) 11.500 (H) 5.570 (H) 3.090 T3 191 (H) 113 119 94 05/04/22 07:31 05/04/22 07:32 TSI Qualitative Negative Microsomal Antibody 1.2 Thyroglobulin Ab 2.5 Images: Thyroid ultrasound 04/2022: Right Lobe: 5.6 x 2.5 x 2.4 cm; grossly homogeneous echogenicity, expected vascular flow. Left Lobe: 4.7 x 2.3 x 2.0 cm; grossly homogeneous echogenicity, expected vascular flow. Isthmus: 0.8 cm The most suspicious thyroid nodule(s) (up to four) as below: NODULE 1: Location: Right inferior Size: 2.8 x 2.0 x 1.2 cm Characteristics: Composition: Solid or almost completely solid, 2 points Echogenicity: Hypoechoic, 2 points Shape: [id number]-sjja, 0 points Margin: Ill-defined, 0 points Echogenic foci (add points for all that apply): None, 0 points Internal vascularity: present Interval growth: No prior available for comparison TI (more content not included)... [facility] 04-08-2024 Telephone encounter Note Patient notified about the labs to be drawn a few days before her appointment. Closed [facility] 04-08-2024 Miscellaneous Notes Patient notified about the labs to be drawn a few days before her appointment. Closed I called this patient and got her scheduled for VV 04.20.2024 I placed the orders. Please schedule her for a visit soon. Virtual is fine. She should do the tests before the visit HH BOY: 01/30/23 It has been over a year since patient has been seen and a little over 6 months since labs . Did you want patient to schedule a follow up visit. Please advise. documented in this encounter [facility] 04-07-2024 Telephone encounter Note I called this patient and got her scheduled for VV 04.20.2024 [facility] 04-07-2024 Telephone encounter Note I placed the orders. Please schedule her for a visit soon. Virtual is fine. She should do the tests before the visit HH [facility] 04-07-2024 Telephone encounter Note BOY: 01/30/23 It has been over a year since patient has been seen and a little over 6 months since labs . Did you want patient to schedule a follow up visit. Please advise. [facility] 01-30-2023 Instructions Dex Munguia MD - 01/30/2023 10:15 AM EDT - Your most recent thyroid tests are normal. - I recommend repeating the blood test in about 6 months and I will update you about the results documented in this encounter [facility] 01-30-2023 History of Present illness Narrative ENDOCRINOLOGY CLINIC NOTE Ms. De Guzman is a pleasant 57 year old female with no significant past medical history presented for follow-up of thyroid dysfunction HPI She reported fatigue and feeling off in 03/2022. She also reported low-grade fever, difficulty swallowing and swollen lymph nodes, and was prescribed amoxicillin. Her symptoms improved but the fatigue and difficulty swallowing remain. TFTs were checked in 03/2022 showing TSH is 0.02, FT4 2.3 and TT3 171. She had negative TSI, TPO and TG antibodies TFTs in 06/2022 showed TSH 11.5 and FT4 0.9. TFTs in 07/2022 showed TSH 5.5 and FT4 1.2. TFTs in 01/2023 showed TSH 3, FT4 1.2 She is doing well overall. She has gained some weight 10 lbs Thyroid nodules: Thyroid ultrasound in 04/2022 showed normal vascular flow in addition to 2 nodules. Nodule 1 was a 2.8 cm solid hypoechoic right inferior nodule, and a 1.2 cm solid taller than wide left inferior nodule with indeterminate echogenicity. FNA of the R was non diagnostic, and the L was not seen We referred her to IR but their US did not show the nodules. US was documented by IR in 10/2022 PAST MEDICAL HISTORY Diagnosis Date HPV (human papillomavirus) Hypercholesteremia Mammographic microcalcification right breast Snoring PAST SURGICAL HISTORY Procedure Laterality Date ADENOIDECTOMY PRIMARY <AGE 13 Adenoidectomy COLONOSCOPY FLX DX W/COLLJ SPEC WHEN PFRMD 04/13/2020 Colonoscopy COLPOSCOPY CERVIX UPPER/ADJACENT VAGINA Colposcopy CONIZATION CERVIX W/WO D&C RPR ELTRD EXC LEEP-Cervix STEREOTACTIC CORE BIOPSY 07/29/09 right breast, benign TONSILLECTOMY PRIMARY/SECONDARY <AGE 13 Tonsillectomy FAMILY HISTORY Problem Relation Age of Onset Diabetes Father Heart Mother ? valve problem Alzheimer's Disease Paternal Grandmother Heart Paternal Grandfather Social History Tobacco Use Smoking status: Former Packs/day: 0.50 Years: 15.00 Pack years: 7.50 Types: Cigarettes Quit date: 2000 Years since quittin.2 Smokeless tobacco: Never Tobacco comments: 14-15 years about 1/2 ppd Vaping Use Vaping Use: Never used Substance Use Topics Alcohol use: Yes Comment: socially Drug use: No (Not in a hospital admission) Allergies As of Date: 01/30/2023 (No Known Allergies) Fully Assessed 10/22/2022 Current Outpatient Medications Medication Sig Dispense Refill ferrous sulfate 325 mg (65 mg iron) tablet Take 325 mg by mouth daily with breakfast. APPLE CIDER VINEGAR ORAL Take 2 Each by mouth once daily. 2 gummiesfdaily No current facility-administered medications for this visit. COMPLETE REVIEW OF SYSTEMS: Answers submitted by the patient for this visit: Core Review of Systems (Submitted on 01/28/2023) Fever : No Night Sweats: No Recent Unintentional Weight Change: No Nasal Congestion: No Hearing Loss: No Vision Disturbance: No A Cough: No Difficulty Breathing?: No Irregular Heart Beat: No Leg Swelling: No Diarrhea: No Black Tarry Stools: No Difficulty Urinating?: No Awaken at Night More Than Once to Urinate?: Yes Joint Pain or Stiffness: Yes Muscle Aches: No Leg or Foot Discomfort at Night?: No A Rash: No Dizziness: No Headaches: No Memory Loss: No Seizures: No I PHYSICAL EXAM: 01/30/23 1000 BP: 129/86 Pulse: 84 SpO2: 100% Weight: 96.6 kg (213 lb) Height: 154.9 cm (5' 1) General: NAD, alert and cooperative, no facial plethora Neck: supple with full ROM. There is no thyromegaly or discrete nodules Previous exam: HEENT: EOMI, no proptosis/stare or lid lag. Eye protrusion 17 mm bilaterally by Luedde exophthalmometer Cardiovascular: RRR, +S1 and S2, no MRG appreciated Lungs: Clear to auscultation bilaterally Abdomen: soft, non-tender, non-distended Extremities: No LE oedema Neuro: No tremor of outstretched hands noted. Deep tendon reflexes are normal with a normal relaxation phase. Psych: Normal affect Labs: 05/04/22 07:31 06/12/22 10:52 07/28/22 09:48 01/28/23 14:57 Free T4 1.9 (H) 0.9 1.2 1.2 TSH 0.011 (L) 11.500 (H) 5.570 (H) 3.090 T3 191 (H) 113 119 94 05/04/22 07:31 05/04/22 07:32 TSI Qualitative Negative Microsomal Antibody 1.2 Thyroglobulin Ab 2.5 Images: Thyroid ultrasound 04/2022: Right Lobe: 5.6 x 2.5 x 2.4 cm; grossly homogeneous echogenicity, expected vascular flow. Left Lobe: 4.7 x 2.3 x 2.0 cm; grossly homogeneous echogenicity, expected vascular flow. Isthmus: 0.8 cm The most suspicious thyroid nodule(s) (up to four) as below: NODULE 1: Location: Right inferior Size: 2.8 x 2.0 x 1.2 cm Characteristics: Composition: Solid or almost completely solid, 2 points Echogenicity: Hypoechoic, 2 points Shape: [id number], 0 points Margin: Ill-defined, 0 points Echogenic foci (add points for all that apply): None, 0 points Internal vascularity: present Interval growth: No prior available for comparison TI-RADS Category: TR4 ACR Recommendation: TI-RADS 4 nodule. FNA is recommended. NODULE 2: Location: Left inferior Size: 1.1 x 0.8 x 1.2 cm Characteristics: Composition: Solid or almost completely solid, 2 points Echogenicity: Echogenicity cannot be determined, 1 point Shape: [id number], 3 points Margin: Lobulated or irregular, 2 points Echogenic foci (add points for all that apply): Punctate echogenic foci, 3 points Internal vascularity: present Interval growth: No prior available for comparison TI-RADS Category: TR5 ACR Recommendation: TI-RADS 5 nodule. FNA is advised. IMPRESSION: Thyroid nodule(s) is/are present. Fine needle aspiration is recommended for one or more nodules as detailed in the synoptic report. TI-RADS Category: TR5 ACR Recommendation: TI-RADS 5 nodule. FNA is advised. ACR recommendations are strictly based on the size and imaging appearance at the time of the exam and do not consider stability or previous biopsy results. Thyroid uptake 05/2022: HISTORY: Hyperthyroidism. Multiple thyroid nodules. TECHNIQUE: 343.2 microcuries 123-I sodium iodide po. RESULT: The 4-hour neck radioiodine uptake is 0.7% (normal range, 5-15%). The 27-hour neck radioiodine uptake is 0.2% (normal range, 10-25%). Planar images demonstrate no appreciable uptake of the radiotracer by the thyroid gland. IMPRESSION: Poor radioiodine uptake by the thyroid. Findings are most suggestive of thyroiditis. Assessment and Recommendations: Ms. De Guzman is a pleasant 57-year-old woman presented for evaluation and management of hyperthyroidism and thyroid nodules. Hyperthyroidism: She reported fatigue and excessive sweating and her TFTs were checked showing low TSH and elevated T4 and T3. This was preceded by what seems to be an upper respiratory tract infection 2 months earlier. Thyroid uptake was very low consistent with thyroiditis. She developed transient hypothyroidism but her TFTs are now normal and she feels better. We will repeat her TFTs in 6 months, and if they are normal, I recommend monitoring once a year. This can be done by the primary care provider Thyroid nodules: She was found to have 2 thyroid nodules on the initial ultrasound, both met the criteria for FNA based on the MAGGIE and TI-RADS guidelines. Referred her for FNA. The initial attempt, the left nodule was not seen, and FNA of the right was nondiagnostic. We referred her to IR, and the ultrasound was documented and did not show any nodules. There was some altered echogenicity which was thought to be due to tissue attenuation I will update her about the result of the TFTs in 6 months via [employer] Some of the above has been copied from prior documentation on 07/31/2022 but dhillon elements reviewed, confirmed, and/or updated by me (Dex Munguia MD) on 01/30/2023 I spent a total of 27 minutes on the date of the service which included preparing to see the patient, [id number] patient care, completing clinical documentation, counseling and educating the patient/family/caregiver, and ordering medications, tests, or procedures. Dex Munguia MD documented in this encounter [facility] 01-12-2023 Miscellaneous Notes Ordered blood tests before her next visit Thanks Called Radiology to clarify and when they performed the US on 10/22/22 the nodules were not found so they did not perform the biopsy. Patient has appt with you on 01/31/23. Does she still need that or should she follow up in one year? Also, she has not had blood work done in awhile is she due? She is not having and symptoms/issues. Patient aware we will send drumbi message once provider returns to office. Called Radiology and left voicemail to call us back. Looking at Results from [facility] and it looks like the specimen samples were cancelled on 10/22/22 the reason is unknown. We will need to call [facility] tomorrow and find out what happened. Patient called office to ask if appt is needed on 01/30/2023? Patient states she was never contacted after biopsy on 10/22/2022 with results. If appt is still needed for 01/30/2023, are there any labs that needed completed prior? Please advise. Patient stated we can relay recommendations via [employer] message Lynn Voss documented in this encounter [facility] 09-21-2022 Miscellaneous Notes Called and spoke with PT, expressed understanding Called Radiology and gave them information. Patient is aware Radha MEDINA will call her to set this up. Keep open until scheduled. Thank you. I recommend repeating the biopsy by interventional radiology in about 4-6 weeks if the patient is agreeable HH Patient returned call. Patient notified of Dean's message. Stated understanding and all questions were answered. Patient aware we will await Dr Munguia's final recommendations and notify her accordingly. Called patients home and left VM to call back office at [phone]. Please give message below. Please let the patient know that, unfortunately, the thyroid biopsy result was non-diagnostic (reported low cells on the sample). In this situations, we have the option of letting the neck rest and repeating the procedure in 3 months. I will defer the next step to Dr. Munguia FINAL DIAGNOSIS A - THYROID, RIGHT, FINE NEEDLE ASPIRATION: Non-diagnostic aspirate sample. Specimen was processed and examined but is non-diagnostic due to insufficient cellularity/follicular cells present. Denita López MD documented in this encounter [facility] 09-18-2022 History of Present illness Narrative Patient was referred by Dr. Munguia for FNAB of right and left thyroid nodule. Right thyroid lesion: very hypoechoic and mostly occupying the entire right thyroid lobe. Left thyroid lesion was not clearly visualized on our thyroid ultrasound. We proceeded with FNAB of right thyroid nodule. Of note, patient reported history of I-131 therapy for hyperthyroidism many years ago. Please see procedure note. Denita López MD documented in this encounter [facility] 09-18-2022 Nurse Note Patient came into office today for a thyroid biopsy. I assisted the doctor with the patient by setting up the biopsy , adding pressure to the site, cleaning up site and making sure the patient tolerated the procedure well. documented in this encounter [facility] 09-18-2022 Instructions Denita López MD - 09/18/2022 9:45 AM EST We will contact you within 7 business days documented in this encounter [facility] 09-18-2022 Procedure note Fine needle aspiration of Thyroid Nodule (September 18, 2022) Referring Physician: Dex Munguia Primary Care Physician: No primary care provider on file. Indication: (E04.2) Multiple thyroid nodules (primary encounter diagnosis) Comment: Patient was referred by Dr. Munguia for FNAB of right and left thyroid nodule. Right thyroid lesion: very hypoechoic and mostly occupying the entire right thyroid lobe. Left thyroid lesion was not clearly visualized on our thyroid ultrasound. We proceeded with FNAB of right thyroid nodule. Of note, patient reported history of I-131 therapy for hyperthyroidism many years ago. Plan: CYTOLOGY NON-RING STAMPER, US THYROID/PARATHYROID (POC) ENDO USE ONLY, CYTOLOGY NON-RING STAMPER Do De Guzman was identified by name and date, acknowledges here to have an FNA of Nodule in right lobe and left thyroid lobe performed. Patient on anti-platelet or anticoagulant drugs: No The risks, benefits and anticipated outcomes of the procedure, the risks and benefits of the alternatives to the procedure, and the roles and tasks of the personnel to be involved, were discussed with the patient. UNIVERSAL PROTOCOL / SAFETY CHECKLIST Procedure to be Performed: FNAB of right thyroid nodule Sign In: A Moment of CARE was completed. Personnel directly involved with the procedure wore the appropriate PPE (Personal Protective Equipment). Patient/Surrogate Stated/Verified: PATIENT VERIFIED(optional for EMERGENT procedures): Patient name, Date of , Relevant allergies, and The intended procedure Time Out Communication: Intended patient and procedure match the source documents. Consent documented and matches the intended procedure. Sign Out: SIGN OUT (optional for EMERGENT procedures): All specimen containers correctly labeled. Denita López MD She was positionned in decubitus with the neck in extension. FNA of Nodule in right lobe: I used cold spray to numb the skin overlying the area of the nodule. The skin was prepped in the usual aseptic manner. I performed 4 passes through target nodule using G-25 needles under sonographic guidance. Character of the aspirate: Clear thick drop Afirma sample sent: Yes The patient tolerated the procedure. Complications: No She was told to go the emergency room if there is severe pain or swelling in the neck area. She will be notified of the result by telephone. Follow up:With Dr.Husni Denita López MD documented in this encounter [facility] 07-31-2022 Instructions Dex Munguia MD - 07/31/2022 10:51 AM EDT - Recheck the thyroid blood test in about 2 months - We will arrange for a biopsy of the thyroid nodules and will let you know about the appointment documented in this encounter [facility] 07-31-2022 History of Present illness Narrative ENDOCRINOLOGY CLINIC NOTE Ms. De Guzman is a pleasant 57 year old female with no significant past medical history presented for follow-up of thyroid dysfunction HPI She reported fatigue and feeling off in 03/2022. She also reported low-grade fever, difficulty swallowing and swollen lymph nodes, and was prescribed amoxicillin. Her symptoms improved but the fatigue and difficulty swallowing remain. TFTs were checked in 03/2022 showing TSH is 0.02, FT4 2.3 and TT3 171. She had negative TSI, TPO and TG antibodies Thyroid ultrasound in 04/2022 showed normal vascular flow in addition to 2 nodules. Nodule 1 was a 2.8 cm solid hypoechoic right inferior nodule, and a 1.2 cm solid taller than wide left inferior nodule with indeterminate echogenicity Interval events: TFTs in 06/2022 showed TSH 11.5 and FT4 0.9. TFTs in 07/2022 showed TSH 5.5 and FT4 1.2. She feels much better compared to before, there has been no major changes in the health. There are no signs or symptoms suggestive of thyroid dysfunction PAST MEDICAL HISTORY Diagnosis Date HPV (human papillomavirus) Hypercholesteremia Mammographic microcalcification right breast Snoring PAST SURGICAL HISTORY Procedure Laterality Date ADENOIDECTOMY PRIMARY <AGE 13 Adenoidectomy COLONOSCOPY FLX DX W/COLLJ SPEC WHEN PFRMD 04/13/2020 Colonoscopy COLPOSCOPY CERVIX UPPER/ADJACENT VAGINA Colposcopy CONIZATION CERVIX W/WO D&C RPR ELTRD EXC LEEP-Cervix STEREOTACTIC CORE BIOPSY 07/29/09 right breast, benign TONSILLECTOMY PRIMARY/SECONDARY <AGE 13 Tonsillectomy FAMILY HISTORY Problem Relation Age of Onset Diabetes Father Heart Mother ? valve problem Alzheimer's Disease Paternal Grandmother Heart Paternal Grandfather Social History Tobacco Use Smoking status: Former Packs/day: 0.50 Years: 15.00 Pack years: 7.50 Types: Cigarettes Quit date: 2000 Years since quittin.7 Smokeless tobacco: Never Tobacco comments: 14-15 years about 1/2 ppd Vaping Use Vaping Use: Never used Substance Use Topics Alcohol use: Yes Comment: socially Drug use: No (Not in a hospital admission) Allergies As of Date: 07/31/2022 (No Known Allergies) Fully Assessed 04/25/2022 Current Outpatient Medications Medication Sig Dispense Refill APPLE CIDER VINEGAR ORAL Take 2 Each by mouth once daily. 2 gummiesfdaily No current facility-administered medications for this visit. COMPLETE REVIEW OF SYSTEMS: Answers submitted by the patient for this visit: Core Review of Systems (Submitted on 07/31/2022) Fever : No Night Sweats: No Recent Unintentional Weight Change: No Nasal Congestion: No Hearing Loss: No Vision Disturbance: No A Cough: No Difficulty Breathing?: No Chest Pain: No Irregular Heart Beat: No Leg Swelling: No Nausea: No Diarrhea: No Black Tarry Stools: No Difficulty Urinating?: No Awaken at Night More Than Once to Urinate?: No Joint Pain or Stiffness: No Muscle Aches: No Leg or Foot Discomfort at Night?: No A Rash: No Dizziness: No Headaches: No Memory Loss: No Seizures: No PHYSICAL EXAM: 07/31/22 1037 BP: 107/76 BP Site: Right Arm BP Position: Sitting BP Cuff Size: Regular Adult Pulse: 68 SpO2: 98% Weight: 85.3 kg (188 lb) Height: 155.4 cm (5' 1.18) General: NAD, alert and cooperative, no facial plethora Previous exam: HEENT: EOMI, no proptosis/stare or lid lag. Eye protrusion 17 mm bilaterally by Luedde exophthalmometer Neck: supple with full ROM. The thyroid is prominent with slightly firm consistency and no tenderness. There is a palpable right lower thyroid nodule about 2 cm in diameter, slightly firm in consistency. Cardiovascular: RRR, +S1 and S2, no MRG appreciated Lungs: Clear to auscultation bilaterally Abdomen: soft, non-tender, non-distended Extremities: No LE oedema Neuro: No tremor of outstretched hands noted. Deep tendon reflexes are normal with a normal relaxation phase. Psych: Normal affect Labs: 04/04/22 07:38 05/04/22 07:31 06/12/22 10:52 07/28/22 09:48 Free T4 2.3 (H) 1.9 (H) 0.9 1.2 TSH 0.023 (L) 0.011 (L) 11.500 (H) 5.570 (H) T3 171 (H) 191 (H) 113 119 05/04/22 07:31 05/04/22 07:32 TSI Qualitative Negative Microsomal Antibody 1.2 Thyroglobulin Ab 2.5 Images: Thyroid ultrasound 04/2022: Right Lobe: 5.6 x 2.5 x 2.4 cm; grossly homogeneous echogenicity, expected vascular flow. Left Lobe: 4.7 x 2.3 x 2.0 cm; grossly homogeneous echogenicity, expected vascular flow. Isthmus: 0.8 cm The most suspicious thyroid nodule(s) (up to four) as below: NODULE 1: Location: Right inferior Size: 2.8 x 2.0 x 1.2 cm Characteristics: Composition: Solid or almost completely solid, 2 points Echogenicity: Hypoechoic, 2 points Shape: [id number], 0 points Margin: Ill-defined, 0 points Echogenic foci (add points for all that apply): None, 0 points Internal vascularity: present Interval growth: No prior available for comparison TI-RADS Category: TR4 ACR Recommendation: TI-RADS 4 nodule. FNA is recommended. NODULE 2: Location: Left inferior Size: 1.1 x 0.8 x 1.2 cm Characteristics: Composition: Solid or almost completely solid, 2 points Echogenicity: Echogenicity cannot be determined, 1 point Shape: [id number], 3 points Margin: Lobulated or irregular, 2 points Echogenic foci (add points for all that apply): Punctate echogenic foci, 3 points Internal vascularity: present Interval growth: No prior available for comparison TI-RADS Category: TR5 ACR Recommendation: TI-RADS 5 nodule. FNA is advised. IMPRESSION: Thyroid nodule(s) is/are present. Fine needle aspiration is recommended for one or more nodules as detailed in the synoptic report. TI-RADS Category: TR5 ACR Recommendation: TI-RADS 5 nodule. FNA is advised. ACR recommendations are strictly based on the size and imaging appearance at the time of the exam and do not consider stability or previous biopsy results. Thyroid uptake 05/2022: HISTORY: Hyperthyroidism. Multiple thyroid nodules. TECHNIQUE: 343.2 microcuries 123-I sodium iodide po. RESULT: The 4-hour neck radioiodine uptake is 0.7% (normal range, 5-15%). The 27-hour neck radioiodine uptake is 0.2% (normal range, 10-25%). Planar images demonstrate no appreciable uptake of the radiotracer by the thyroid gland. IMPRESSION: Poor radioiodine uptake by the thyroid. Findings are most suggestive of thyroiditis. Assessment and Recommendations: Ms. De Guzman is a pleasant 57-year-old woman presented for evaluation and management of hyperthyroidism and thyroid nodules. Hyperthyroidism: She reported fatigue and excessive sweating and her TFTs were checked showing low TSH and elevated T4 and T3. This was preceded by what seems to be an upper respiratory tract infection 2 months earlier. Other than the fatigue, she appears clinically euthyroid today. She has had weight loss, but she has been trying to lose weight through dietary modifications. Thyroid uptake was very low consistent with thyroiditis. She developed transient hypothyroidism but her TFTs and symptoms are improving. We will repeat her TFTs in 2 months. Thyroid nodules: She was found to have 2 thyroid nodules on ultrasound, both meet the criteria for FNA based on the MAGGIE and TI-RADS guidelines. We will arrange for FNA of both nodules by either my colleague Dr. Moran or interventional radiology Some of the above has been copied from prior documentation on 04/25/2022 but dhillon elements reviewed, confirmed, and/or updated by me (Dex Munguia MD) on 07/31/2022 I spent a total of 30 minutes on the date of the service which included preparing to see the patient, [id number] patient care, completing clinical documentation, counseling and educating the patient/family/caregiver, and ordering medications, tests, or procedures. Dex Munguia MD documented in this encounter [facility] 05-31-2022 Miscellaneous Notes May 31, 2022 PID: [id number] Do De Guzman [address] [place] [address] Dear Ms. De Guzman, We are pleased to inform you that the results of your recent breast imaging exam on 05/31/2022 are normal. Early detection of cancer is very important. We also understand recommendations regarding breast cancer screening are controversial. Please discuss with your primary care provider which strategy is best for you and whether a mammogram is right for you. Your imaging studies and report will be kept on file at [facility] as part of your permanent medical record and are available for your continuing care. Thank you for allowing us to help in meeting your health care needs. Sincerely, Dr. Ruvalcaba Interpreting Radiologist (Normal over 40) documented in this encounter [facility] 05-31-2022 History of Present illness Narrative Radiology Service Progress Note PATIENT NAME: Do De Guzman DATE OF SERVICE: May 31, 2022 TIME: 8:15 AM PATIENT IDENTITY VERIFICATION COMPLETED USING TWO (2) IDENTIFIERS: Name and Date of confirmed by patient verbally. FALL SCREENING: Has the patient had 2 falls in the last year or 1 fall with injury or currently using an Ambulatory Assistive Device (Walker, Cane, Wheelchair, Crutches, etc.)? No PATIENT GENDER DATA: Female. status: : No status: NO. PATIENT RELEVANT IMPLANT DATA REVIEWED: Not Applicable RADIOLOGY DEPARTMENT: Mammography PERIPHERAL IV DATA: Not applicable SIGNED BY: Jesse ReeceAdility Judy May 31, 2022 8:15 AM documented in this encounter [facility] 05-28-2022 History of Present illness Narrative RADIOLOGY SERVICE PROGRESS NOTE SERVICE DATE: 05/28/2022 SERVICE TIME: 9:31 AM PATIENT IDENTITY VERIFICATION COMPLETED USING TWO (2) STANDARD IDENTIFIERS: Name and Date of confirmed by patient verbally FALL SCREENING: Has the patient had 2 falls in the last year or 1 fall with injury or currently using an Ambulatory Assistive Device (Walker, Cane, Wheelchair, Crutches, etc.)? No PATIENT GENDER DATA: .female : No ALLERGIES: Reviewed and unchanged MEDICATIONS REVIEWED: Yes PATIENT RELEVANT IMPLANT DATA REVIEWED: Not Applicable CREATININE: Creatinine Date Value Ref Range Status 04/04/2022 0.80 0.58 - 0.96 mg/dL Final Estimated Glomerular Filtration Rate Date Value Ref Range Status 04/04/2022 87 >=60 mL/min/1.73m Final Comment: Estimated Glomerular Filtration Rate (eGFR) is calculated using the 2020 CKD-EPI creatinine equation. This equation utilizes serum creatinine, sex, and age as parameters. The creatinine assay has traceable calibration to isotope dilution-mass spectrometry. Refer to KDIGO guidelines for clinical interpretation. In patients with unstable renal function, e.g. those with acute kidney injury, the eGFR may not accurately reflect actual GFR. P.O.C.T. RESULTS: N/A May 28, [address] PERFORMED: No IV SITE: AR only - not applicable, oral or physician administered agents given to patient POST EXAM PIV STATUS: Not applicable PROCEDURE TYPE: NM INJECT: NM THYROID UPTAKE AND SCAN. 343.2 microcuries Nal-123 Capsules by mouth. No other medications given.. ADMINISTRATION TIME: 9:26am PATIENT DISCHARGED TO: Ambulatory patient, left AR department area. A Diagnostic radioactive procedure has taken place, with no further precautions necessary other than routine body substance precautions. More information regarding radiation safety can be found using this link: [email or web address] SIGNATURE: STEPHEN MaddoxR) PATIENT NAME: Do De Guzman DATE: May 28, 2022 TIME: 9:31 AM PAGER/CONTACT #: documented in this encounter [facility] 05-09-2022 Miscellaneous Notes 05/09 request sent for thyroid uptake only order. Hyperthyroidism or Nodule - 300 Micro I-123 Capsules for Diagnostic Imaging 4 hr and 24 hr uptake and scan (Mon-Thurs after 9:00am) Scheduling Instructions: Uptake at 4 and 24 hrs with scan at 24 hrs only Approved by: Ronald Patel MD Date Completed: May 07, 2022 Route to [employer] Clerk ([id number]) Name: Do De Guzman AGE: [age] year old Will the patient need anesthesia? NO Diagnosis: Hyperthyroidism [E05.90] Ordering Physician: Dex Munguia Date sent for review: May 07, 2022 Select exam: Indication: THYROID NON ENDO-MD Route to P NM MD Triage or DEYANIRA scan route to P [facility] REVIEW [facility] (if required) documented in this encounter [facility] 05-09-2022 Miscellaneous Notes Watson, Please enter order #[id number] for NM thy uptake only. Unable to schedule. Thanks documented in this encounter [facility] 04-25-2022 Instructions Dex Munguia MD - 04/25/2022 3:46 PM EDT - Blood tests at your convenience soon - I will update you about the results and next steps through [facility]. We may need to do a thyroid scan and biopsy of the nodules depending on the results documented in this encounter [facility] 04-25-2022 History of Present illness Narrative ENDOCRINOLOGY CLINIC NOTE Ms. De Guzman is a 57 year old female with no significant past medical history was referred by Lucille Callahan APRN.CNP for evaluation and management of hypothyroidism HPI She reported fatigue and feeling off in 03/2022. She also reported low-grade fever, difficulty swallowing and swollen lymph nodes, and was prescribed amoxicillin. Her symptoms improved but the fatigue and difficulty swallowing remain. TFTs were checked in 03/2022 showing TSH is 0.02, FT4 2.3 and TT3 171. Thyroid ultrasound in 04/2022 showed normal vascular flow in addition to 2 nodules. Nodule 1 was a 2.8 cm solid hypoechoic right inferior nodule, and a 1.2 cm solid taller than wide left inferior nodule with indeterminate echogenicity She reported fatigue, excessive sweating and intermittent diarrhea, but not palpitations or tremors. She also reported feeling something in her throat with eating but no dysphagia or dysphonia. She has lost 40 lbs over a 6 month period, but she is also trying to lose weight through diet. In 01/2022, she reported low grade temperature, and swollen LNs in the neck and fatigue and was prescribed amoxacillin. She felt improvement after a week and LN swelling disappeared , but the symptoms above persisted. No known family history of thyroid disorders or thyroid cancers. No history of radiation exposure and no eye symptoms. She used to take vitamin D but was stopped due to high vitamin D level. PAST MEDICAL HISTORY Diagnosis Date HPV (human papillomavirus) Hypercholesteremia Mammographic microcalcification right breast Snoring PAST SURGICAL HISTORY Procedure Laterality Date ADENOIDECTOMY PRIMARY <AGE 13 Adenoidectomy COLONOSCOPY FLX DX W/COLLJ SPEC WHEN PFRMD 04/13/2020 Colonoscopy COLPOSCOPY CERVIX UPPER/ADJACENT VAGINA Colposcopy CONIZATION CERVIX W/WO D&C RPR ELTRD EXC LEEP-Cervix STEREOTACTIC CORE BIOPSY 07/29/09 right breast, benign TONSILLECTOMY PRIMARY/SECONDARY <AGE 13 Tonsillectomy FAMILY HISTORY Problem Relation Age of Onset Diabetes Father Heart Mother ? valve problem Alzheimer's Disease Paternal Grandmother Heart Paternal Grandfather Social History Tobacco Use Smoking status: Former Smoker Packs/day: 0.50 Years: 15.00 Pack years: 7.50 Types: Cigarettes Quit date: 2000 Years since quittin.4 Smokeless tobacco: Never Used Tobacco comment: 14-15 years about 1/2 ppd Vaping Use Vaping Use: Never used Substance Use Topics Alcohol use: Yes Comment: socially Drug use: No (Not in a hospital admission) Allergies As of Date: 04/25/2022 (No Known Allergies) Fully Assessed 04/16/2022 Current Outpatient Medications Medication Sig Dispense Refill ferrous sulfate (SLOW FE) 140 mg (45 mg iron) TbER Take 1 tablet by mouth twice daily with meals. 60 tablet 2 APPLE CIDER VINEGAR ORAL Take 2 Each by mouth once daily. 2 gummiesfdaily No current facility-administered medications for this visit. COMPLETE REVIEW OF SYSTEMS: Answers for HPI/ROS submitted by the patient on 04/24/2022 Fatigue: Yes Skin Color Changes: No Vision Disturbance: No Chest Pain: No Leg Swelling: No Blood Clots?: No Leg Pain while walking?: No Difficulty Breathing?: No Heartburn: No Nausea: No Vomiting?: No Diarrhea: Yes Constipation: No Abdominal Pain: No Bone Pain?: No Muscle Aches: No Muscle Weakness: No Joint Pain or Stiffness: No Headaches: No Dizziness: No Numbness?: No Urgency to Urinate?: No Increased Urination?: No Slow or Small Urine Stream?: No Have your menstrual cycles stopped?: Yes Hot Flashes?: Yes PHYSICAL EXAM: 04/25/22 1510 BP: 120/73 BP Site: Left Arm BP Position: Sitting BP Cuff Size: Regular Adult Pulse: 94 SpO2: 98% Weight: 86 kg (189 lb 9.6 oz) Height: 154.9 cm (5' 1) General: NAD, alert and cooperative, no facial plethora HEENT: EOMI, no proptosis/stare or lid lag. Eye protrusion 17 mm bilaterally by Luedde exophthalmometer Neck: supple with full ROM. The thyroid is prominent with slightly firm consistency and no tenderness. There is a palpable right lower thyroid nodule about 2 cm in diameter, slightly firm in consistency. Cardiovascular: RRR, +S1 and S2, no MRG appreciated Lungs: Clear to auscultation bilaterally Abdomen: soft, non-tender, non-distended Extremities: No LE oedema Neuro: No tremor of outstretched hands noted. Deep tendon reflexes are normal with a normal relaxation phase. Psych: Normal affect Labs: 04/04/2022 07:38 Sodium 142 Potassium 4.7 Chloride 103 CO2 28 BUN 14 Creatinine 0.80 Glucose 96 Protein, Total 6.4 Calcium 9.4 Albumin 3.8 (L) Bilirubin, Total 0.4 Alkaline Phosphatase 65 ALT 12 AST 13 Anion Gap 11 eGFR 87 04/04/2022 07:38 Free T4 2.3 (H) TSH 0.023 (L) T3 171 (H) Vitamin D 25 Hydroxy 117.0 (H) Images: Thyroid ultrasound 04/2022: Right Lobe: 5.6 x 2.5 x 2.4 cm; grossly homogeneous echogenicity, expected vascular flow. Left Lobe: 4.7 x 2.3 x 2.0 cm; grossly homogeneous echogenicity, expected vascular flow. Isthmus: 0.8 cm The most suspicious thyroid nodule(s) (up to four) as below: NODULE 1: Location: Right inferior Size: 2.8 x 2.0 x 1.2 cm Characteristics: Composition: Solid or almost completely solid, 2 points Echogenicity: Hypoechoic, 2 points Shape: [id number], 0 points Margin: Ill-defined, 0 points Echogenic foci (add points for all that apply): None, 0 points Internal vascularity: present Interval growth: No prior available for comparison TI-RADS Category: TR4 ACR Recommendation: TI-RADS 4 nodule. FNA is recommended. NODULE 2: Location: Left inferior Size: 1.1 x 0.8 x 1.2 cm Characteristics: Composition: Solid or almost completely solid, 2 points Echogenicity: Echogenicity cannot be determined, 1 point Shape: Frnpuc-prtt-ekbk, 3 points Margin: Lobulated or irregular, 2 points Echogenic foci (add points for all that apply): Punctate echogenic foci, 3 points Internal vascularity: present Interval growth: No prior available for comparison TI-RADS Category: TR5 ACR Recommendation: TI-RADS 5 nodule. FNA is advised. IMPRESSION: Thyroid nodule(s) is/are present. Fine needle aspiration is recommended for one or more nodules as detailed in the synoptic report. TI-RADS Category: TR5 ACR Recommendation: TI-RADS 5 nodule. FNA is advised. ACR recommendations are strictly based on the size and imaging appearance at the time of the exam and do not consider stability or previous biopsy results. Assessment and Recommendations: Ms. De Guzman is a pleasant 57-year-old woman presented for evaluation and management of hyperthyroidism and thyroid nodules. Hyperthyroidism: She reported fatigue and excessive sweating and her TFTs were checked showing low TSH and elevated T4 and T3. This was preceded by what seems to be an upper respiratory tract infection 2 months earlier. Other than the fatigue, she appears clinically euthyroid today. She has had weight loss, but she has been trying to lose weight through dietary modifications. We discussed that the differential diagnosis for hyperthyroidism include thyroiditis, Graves' disease and toxic nodule(s). We will repeat her TFTs and check TSI, TPO and TG antibody now. Based on the results, we will discuss the next steps via MyChart/phone. If the TSI is positive and the TFTs are still consistent with hyperthyroidism, we will start methimazole. We discussed the possible side effects of methimazole including liver injury and agranulocytosis, and that she should seek immediate help if she develops sore throat, fever, abdominal pain, dark urine or jaundice. Thyroid nodules: She was found to have 2 thyroid nodules on ultrasound, both meet the criteria for FNA based on the MAGGIE and TI-RADS guidelines. If the repeat TFTs show persistent hyperthyroidism, with negative TSI, we will do a thyroid uptake and scan to see if the nodules are hyperactive or not. We discussed that hyperactive nodules are rarely cancerous and FNA may not be needed. Otherwise we will arrange for FNA either in our clinic by one of my colleagues or by interventional radiology. I think my colleague Lucille Callahan APRN.IRRIGATIONIST for involving me in the care of this patient My final recommendations will be communicated back to the requesting physician by way of shared Medical record or letter to requesting physician via [place] mail. I spent 50 minutes in the visit, with more than 50% of the total ddot-zr-[id number] time of the visit in counseling / coordination of care. Dex Munguia MD documented in this encounter [facility] 04-16-2022 History of Present illness Narrative Do De Guzman 1965 REFERRING PHYSICIAN: Lucille Callahan APRN.* CHIEF COMPLAINT: Consult (thyroid nodules) HPI: The patient is a 57 year old female presents with abnormal ultrasound of thyroid gland. She presents with elevated T3 and T4 and low TSH. She denies heart palpitations. She does note increased fatigue. She notes no thyroid cancer in family She notes no swallowing problems She notes no hoarseness She denies globus symptoms She denies any unusual exposure to radiation She denies cigarettes use She denies history of thyroiditis US thyroid 04/12/2022 RESULT: Right Lobe: 5.6 x 2.5 x 2.4 cm; grossly homogeneous echogenicity, expected vascular flow. Left Lobe: 4.7 x 2.3 x 2.0 cm; grossly homogeneous echogenicity, expected vascular flow. Isthmus: 0.8 cm The most suspicious thyroid nodule(s) (up to four) as below: NODULE 1: Location: Right inferior Size: 2.8 x 2.0 x 1.2 cm Characteristics: Composition: Solid or almost completely solid, 2 points Echogenicity: Hypoechoic, 2 points Shape: Fcivt-qpqz-gssm, 0 points Margin: Ill-defined, 0 points Echogenic foci (add points for all that apply): None, 0 points Internal vascularity: present Interval growth: No prior available for comparison TI-RADS Category: TR4 ACR Recommendation: TI-RADS 4 nodule. FNA is recommended. NODULE 2: Location: Left inferior Size: 1.1 x 0.8 x 1.2 cm Characteristics: Composition: Solid or almost completely solid, 2 points Echogenicity: Echogenicity cannot be determined, 1 point Shape: Vcypaz-mesw-ezbh, 3 points Margin: Lobulated or irregular, 2 points Echogenic foci (add points for all that apply): Punctate echogenic foci, 3 points Internal vascularity: present Interval growth: No prior available for comparison TI-RADS Category: TR5 ACR Recommendation: TI-RADS 5 nodule. FNA is advised. PAST MEDICAL HISTORY Diagnosis Date HPV (human papillomavirus) Hypercholesteremia Mammographic microcalcification right breast Snoring PAST SURGICAL HISTORY Procedure Laterality Date ADENOIDECTOMY PRIMARY <AGE 13 Adenoidectomy COLONOSCOPY FLX DX W/COLLJ SPEC WHEN PFRMD 04/13/2020 Colonoscopy COLPOSCOPY CERVIX UPPER/ADJACENT VAGINA Colposcopy CONIZATION CERVIX W/WO D&C RPR ELTRD EXC LEEP-Cervix STEREOTACTIC CORE BIOPSY 07/29/09 right breast, benign TONSILLECTOMY PRIMARY/SECONDARY <AGE 13 Tonsillectomy Current Outpatient Medications Medication Sig ferrous sulfate (SLOW FE) 140 mg (45 mg iron) TbER Take 1 tablet by mouth twice daily with meals. APPLE CIDER VINEGAR ORAL Take 2 Each by mouth once daily. 2 gummiesfdaily vit C-vitamin D3-herb no.313 250 mg-3.75 mcg -212.5 mg cap Take 1 capsule by mouth once daily. (Patient not taking: Reported on 04/16/2022 ) ALLERGIES: Patient has no known allergies. PERSONAL HISTORY: Social History Tobacco Use Smoking status: Former Smoker Packs/day: 0.50 Years: 15.00 Pack years: 7.50 Types: Cigarettes Quit date: 2000 Years since quittin.4 Smokeless tobacco: Never Used Tobacco comment: 14-15 years about 1/2 ppd Vaping Use Vaping Use: Never used Substance Use Topics Alcohol use: Yes Comment: socially Drug use: No FAMILY HISTORY Problem Relation Age of Onset Diabetes Father Heart Mother ? valve problem Alzheimer's Disease Paternal Grandmother Heart Paternal Grandfather The review of systems data was entered by the nurse and reviewed by me Nursing Notes: Gretchen Blackburn RN 04/16/2022 1:35 PM Signed REVIEW OF SYSTEMS: General: The patient NOTES fatigue, denies weight loss, denies weight gain, NOTES feeling hot, and denies feelings of cold. Eyes: The patient denies glaucoma, denies eye injury/surgery, wears glasses or contacts. Ear/Nose/Throat: The patient NOTES allergies, NOTES hayfever, denies ear infections, and denies bloody noses. Cardiovascular: The patient denies chest pain, denies heart disease, denies high blood pressure,denies cardiac stent, denies prior heart attack, denies irregular heart beat, denies high cholesterol, denies poor circulation, denies heart failure, other cardiac issues, denies claudication, denies cold feet, denies peripheral arterial stent. Respiratory: The patient denies tuberculosis, denies pneumonia, denies frequent cough, denies pulmonary embolism, denies shortness of breath, and denies coughing up blood. Gastrointestinal: The patient denies difficulty swallowing, NOTES acid reflux, denies ulcers, denies vomiting, denies jaundice/hepatitis, denies gallbladder problems, denies black or tarry stools, denies hemorrhoids, denies bleeding from rectum, denies diverticulitis, denies constipation, denies diarrhea, denies loss of stool control, and denies hernias. Kidney/Bladder: The patient denies kidney stones, denies urine infections, and denies bloody urine. Skin: The patient denies a history of skin cancer, denies bleeding/changing moles, and denies a history of skin rash. Neurologic: The patient denies a history of epilepsy/convulsions, denies headaches, denies head/spinal injuries, and denies stroke/TIA. Psychiatric: The patient denies psychiatric medications, depression, and denies voices, denies substance abuse. Endocrine: The patient NOTES thyroid disorders, denies diabetes, and denies hormonal problems. Hematologic: The patient denies a history of bruising, denies bleeding, and denies anemia, denies blood clots. Infections: The patient denies a history of measles and mumps, denies rheumatic fever, and denies sexually transmitted diseases. Musculoskeletal: The patient denies back pain/injury, denies back problems, denies sciatica, denies knee/foot trouble, denies arthritis, or denies gout. When was patient's last Mammogram screening? 2019 Last Colonoscopy: 2019 Gretchen Blackburn RN PHYSICAL EXAMINATION: General: The patient is 57 year old female, well nourished, well hydrated in no acute distress. The patient is oriented to time, place, and person. VITALS: Blood pressure 118/72, pulse 90, temperature 36.8 C (98.2 F), weight 86.8 kg (191 lb 6.4 oz), last menstrual period 02/26/2014, SpO2 98 %. Body mass index is 36.14 kg/m . Head: Normal cephalic, atraumatic Eyes: pupils are equally round, sclera are clear/anicteric Neck is supple with no tracheal deviation, no masses noted Respiratory: Normal respiratory excursion and pattern. Abdominal exam: benign Extremities: no clubbing, cyanosis or edema. Neuro: non focal Psych: normal mood RADIOLOGIC STUDIES: As Noted Assessment IMPRESSION: abnormal ultrasound of thyroid, laboratory hyperthyroidism PLAN: I have discussed the above with the patient. The patient is scheduled to be evaluated by endocrinology next week. Will defer to their opinion on consideration for FNA of thyroid nodules in the setting of hyperthyroidism. Patient acknowledges above. I have answered all questions to the patient s satisfaction and the patient has no further questions. I have confirmed and edited as necessary, the PFSH and ROS obtained by others. Consultation requested by Lucille Callahan for an opinion regarding patient's abnormal thyroid ultrasound My final recommendations will be communicated back to the requesting physician by way of shared Medical record or letter to requesting physician via US mail. . Diagnoses: (R93.89) Abnormal ultrasound of thyroid gland (primary encounter diagnosis) (E05.90) Hyperthyroid Return to Clinic: The patient is instructed to follow-up with me if US guided FNA of thyroid nodules recommended by endocrinology (or the sports management internship may proceed with this) Medical Decision Making: Problems: Moderate: New problem with uncertain prognosis Data: Unique test result(s) reviewed: 1 Risk: Low: Low risk from testing/treatment Medical Decision Making Level: 3 - Low Rachel Lau MD documented in this encounter [facility] 04-16-2022 Nurse Note REVIEW OF SYSTEMS: General: The patient NOTES fatigue, denies weight loss, denies weight gain, NOTES feeling hot, and denies feelings of cold. Eyes: The patient denies glaucoma, denies eye injury/surgery, wears glasses or contacts. Ear/Nose/Throat: The patient NOTES allergies, NOTES hayfever, denies ear infections, and denies bloody noses. Cardiovascular: The patient denies chest pain, denies heart disease, denies high blood pressure,denies cardiac stent, denies prior heart attack, denies irregular heart beat, denies high cholesterol, denies poor circulation, denies heart failure, other cardiac issues, denies claudication, denies cold feet, denies peripheral arterial stent. Respiratory: The patient denies tuberculosis, denies pneumonia, denies frequent cough, denies pulmonary embolism, denies shortness of breath, and denies coughing up blood. Gastrointestinal: The patient denies difficulty swallowing, NOTES acid reflux, denies ulcers, denies vomiting, denies jaundice/hepatitis, denies gallbladder problems, denies black or tarry stools, denies hemorrhoids, denies bleeding from rectum, denies diverticulitis, denies constipation, denies diarrhea, denies loss of stool control, and denies hernias. Kidney/Bladder: The patient denies kidney stones, denies urine infections, and denies bloody urine. Skin: The patient denies a history of skin cancer, denies bleeding/changing moles, and denies a history of skin rash. Neurologic: The patient denies a history of epilepsy/convulsions, denies headaches, denies head/spinal injuries, and denies stroke/TIA. Psychiatric: The patient denies psychiatric medications, depression, and denies voices, denies substance abuse. Endocrine: The patient NOTES thyroid disorders, denies diabetes, and denies hormonal problems. Hematologic: The patient denies a history of bruising, denies bleeding, and denies anemia, denies blood clots. Infections: The patient denies a history of measles and mumps, denies rheumatic fever, and denies sexually transmitted diseases. Musculoskeletal: The patient denies back pain/injury, denies back problems, denies sciatica, denies knee/foot trouble, denies arthritis, or denies gout. When was patient's last Mammogram screening? 2019 Last Colonoscopy: 2019 Gretchen Blackburn RN documented in this encounter [facility] 04-06-2022 Miscellaneous Notes US of Thyroid and Consult to Endo has been scheduled. Perla Spears Please assist pt in scheduling US of Thyroid and Consult to Endo. Marcela Denton LPN Patient notified of results, verbalizes understanding of instructions. Pt stated she is not taking any Iron Supp. But will pickling grader OTC and start it. Agrees with US and Endo consult. Marcela Denton LPN Please call patient and let her know that her blood work results are back. HgA1c is slightly elevated into pre-diabetes range. We will continue to monitor this value. I recommend a healthy diet with decreased carbs and routine exercise. Platelet count was slightly elevated with iron levels low. This represents iron deficiency. This can be contributing to why she feels so off and fatigued. Verify that she is not currently taking an iron supplement. If she is, she needs to increase the dosage. I would recommend SlowFE 140 mg 2x/day. I can send this script to pharmacy of her choice. Also, her thyroid hormones are increased. Both T3 and T4 are elevated with TSH very low. With the only lab work to compare to being 13 years ago, I would like to get an ultrasound of her thyroid and repeat thyroid levels in 4 weeks to reassess. I would also like to consult endocrionology for hyperthyroidism and get her scheduled in the meantime. This may also be contributing to her generalized unwell feeling. Lastly, Vitamin D level is very high. Please have patient decrease her vitamin d supplement she is taking in half. We will repeat vitamin D level in 3 months. Thank you, Lucille Callahan APRN.YAQUELIN documented in this encounter [facility] 04-02-2022 Instructions Lucille Callahan APRN.YAQUELIN - 04/02/2022 10:38 AM EDT Blood work done today. Schedule mammogram. COVID and flu today in office. documented in this encounter [facility] 04-02-2022 History of Present illness Narrative Chief Complaint Patient presents with: Physical HPI Do De Guzman is a 57 year old female who presents here today for Above Complaints. Svetlana was an established patient of Dr. Radu DO in 2013. Has not been seen by this office since then. Coming in today for physical exam. Concerns today.. Generalized not feeling well since beginning of January. Described as fatigue and just feeling off. Did have slight low grade fever 99.9-100.1F, difficulty swallowing, swollen lymph nodes, and post-nasal drip with slight non-productive cough beginning 1-2 weeks ago -- seen by virtual provider and given amoxicillin and dx with sinusitis. At home COVID testing negative. Finished antibiotic and symptoms improved but difficulties swallowing at times remains. Fatigue also remains. She reports sleeping 8 hours a night, no daytime sleepiness. LMP: prior to 2019. Hot flashes daily. Well managed on her own. Diet -- Losing weight. Lost 41 lbs since . On diet plan called [employer]. --- eats 6x/day. Has one larger meal and the rest are snacks provided by this company. Drinking lots of water. Exercise -- working park time at [employer] where she gets routine activity but no routine exercise program. Plans on walking daily but has not started this yet. Recently got treadmill she needs to set up. HM: Overdue for mammogram. Had benign right breast mass removed in 2009. Never followed up on this since. Overdue for PAP and HPV testing -- has [facility] that she has not been to in numerous years but would like re-establish at [facility] location. COVID immunizations x2 complete -- no booster yet. Not interested in booster at this time. Routine blood work needed -- will order today. Family and surgical history updated. Past medical history, appointments, medications, allergies reviewed. Previous Medical History PAST MEDICAL HISTORY Diagnosis Date HPV (human papillomavirus) Hypercholesteremia Mammographic microcalcification right breast Snoring Previous Surgical History PAST SURGICAL HISTORY Procedure Laterality Date ADENOIDECTOMY PRIMARY <AGE 13 Adenoidectomy COLONOSCOPY FLX DX W/COLLJ SPEC WHEN PFRMD 04/13/2020 Colonoscopy COLPOSCOPY CERVIX UPPER/ADJACENT VAGINA Colposcopy CONIZATION CERVIX W/WO D&C RPR ELTRD EXC LEEP-Cervix STEREOTACTIC CORE BIOPSY 07/29/09 right breast, benign TONSILLECTOMY PRIMARY/SECONDARY <AGE 13 Tonsillectomy Family History FAMILY HISTORY Problem Relation Age of Onset Diabetes Father Heart Mother ? valve problem Alzheimer's Disease Paternal Grandmother Heart Paternal Grandfather Patient Allergies ALLERGIES No Known Allergies Current Medications No current outpatient medications on file prior to visit. No current facility-administered medications on file prior to visit. Social History Social History Tobacco Use Smoking status: Former Smoker Packs/day: 0.50 Years: 15.00 Pack years: 7.50 Types: Cigarettes Quit date: 2000 Years since quittin.4 Smokeless tobacco: Never Used Tobacco comment: 14-15 years about 1/2 ppd Substance Use Topics Alcohol use: Yes Comment: socially Drug use: No REVIEW OF SYSTEMS: as above Reviewed relevant PMHx, PSHx, Social Hx, current medications and allergies. Review of Symptoms REVIEW OF SYSTEMS PAIN ASSESSMENT: Negative for pain, history of chronic pain, or current treatment for a chronic pain condition. GENERAL: No weight loss, malaise or fevers HEENT: Negative for frequent or significant headaches, No changes in hearing or vision, no nose bleeds or other nasal problems NECK: Negative for lumps, goiter, pain and significant neck swelling RESPIRATORY: Negative for cough, hemoptysis, wheezing, COPD, dyspnea or shortness of breath CARDIOVASCULAR: Negative for chest pain, leg swelling, hypertension, CHF or palpitations GI: No nausea, vomiting, or diarrhea : No history of dysuria, frequency or incontinence RING STAMPER: Negative for abnormal vaginal bleeding, abnormal vaginal discharge MUSCULOSKELETAL: Negative for joint pain or swelling, back pain or muscle pain SKIN: Negative for lesions, rash, and itching PSYCH: Negative for sleep disturbance, mood disorder and recent psychosocial stressors HEMATOLOGY/LYMPHOLOGY: Negative for prolonged bleeding, bruising easily or swollen nodes ENDOCRINE: Negative for cold or heat intolerance, polyuria, polydipsia and goiter NEURO: No history of headaches, syncope, paralysis, seizures or tremors EXAM: BP 120/64 (BP Site: Left Arm, BP Position: Sitting, BP Cuff Size: Large Adult) Pulse 64 Resp 16 Ht 155 cm (5' 1.02) Wt 87.6 kg (193 lb 0.6 oz) LMP 02/26/2014 BMI 36.45 kg/m General Appearance: Well appearing, alert, in no acute distress, well-hydrated, well nourished.. Skin: Skin color, texture, turgor normal, no suspicious rashes or lesions. Head: Normocephalic, no masses, lesions, tenderness or abnormalities. Eyes: Anicteric sclera. Pupils are equally round and reactive to light. Extraocular movements are intact. . Ears: External ears normal, canals clear. Nose/Sinuses: Nares normal, septum midline, mucosa normal, no drainage or sinus tenderness. Oropharynx: Lips, mucosa, and tongue normal, teeth and gums normal, oropharynx normal. Neck: Supple, no adenopathy; thyroid symmetric, normal size, no bruits. Back:no pain to palpation of vertebrae, good flexion and extension, good range of motion, no muscle tenderness, reflexes are 2+ and symmetric, motor and sensory appear to be normal, negative SLR test, no evidence of scoliosis Lungs: Lungs clear to auscultation. No wheezing, rhonchi, rales.. Heart: RRR without murmur, gallop, or rubs. No ectopy. Abdomen: Normal abdominal exam, Abdomen soft, non-tender. Bowel sounds normal. No masses, organomegaly. Extremities: No deformities, edema, skin discoloration, clubbing or cyanosis. Good capillary refill. . Musculoskeletal: No joint swelling, deformity, or tenderness. Peripheral Pulses: Normal. Neurologic: Gait normal. Reflexes normal and symmetric. Sensation grossly intact.. Lymph Nodes: No cervical lymphadenopathy, No supraclavicular lymphadenopathy, No axillary lymphadenopathy. and No inguinal lymphadenopathy.. Health Maintenance List COVID-19 VACCINE(1) Never done DEPRESSION SCREENING Never done HEPATITIS C SCREENING Never done HIV SCREENING Never done DTAP,TDAP,TD(1 - Tdap) Never done HPV TESTING Never done SHINGRIX VACCINE(1 of 2) Never done DIABETES SCREEN due on 08/03/2016 PAP TESTING due on 01/23/2018 LIPID SCREEN due on 08/03/2018 MAMMOGRAM due on 05/26/2021 INFLUENZA(Season Ended) due on 07/12/2022 COLORECTAL CANCER SCREENING due on 04/13/2030 MENINGOCOCCAL CONJUGATE Aged Out ASSESSMENT/PLAN: 1. Wellness examination - ICD9: V70.0, ICD10: Z00.00 (primary diagnosis) - Counseled on healthy diet and regular exercise - Calcium intake with supplements or by diet of 1000 mg/day for under 50, 3772-6181 mg/day for 50+ - Discussed need and benefit for weight loss. BMI 36.45 kg/(m^2) - Mammogram ordered - exam recommended once yearly - Overdue for PAP and HPV testing -- schedule with [facility] or follow-up appointment with PCP team to have completed. Pt agreeable. - Follow up for annual exam in one year - PEMA SCREENING 2. Fatigue, unspecified type - ICD9: 780.79, ICD10: R53.83 Generalized fatigue x 2 months. No contributing symptoms. - CBC - COMP METABOLIC PANEL - TSH BLD - LIPID PANEL BASIC - HGB A1C - VITAMIN D 25 HYDROXY - VITAMIN B12 BLOOD - IRON + TIBC - FERRITIN BLD - T4 FREE/FREE THYROX - T3 BLD 3. Post-nasal drainage - ICD9: 473.9, ICD10: R09.82 - The patient should also be given OTC decongestants prn, OTC cough and cold meds as needed, Cough syrup with codeine- Rx given, warm salt water gargles, throat lozenges and/or OTC throat spray as needed and nasal saline gtts and suction prn for the first 5-7 days of treatment. - Supportive care with plenty of fluids, rest, and analgesia prn. - Follow up in 3-5 days if symptoms persist or worsen. - COVID WITH FLUA+B, ROUTINE 4. Obesity, Class II, BMI 35-39.9 - ICD9: 278.00, ICD10: E66.9 Weight decreasing - Behavioral intervention, - Eat well program and - Continue current medications 5. Dysphagia, unspecified type - ICD9: 787.20, ICD10: R13.10 - TSH BLD - T4 FREE/FREE THYROX - T3 BLD RTO as needed and for PAP and HPV testing if OBGYN has long wait. I spent 42 minutes in the visit, with more than 50% of the total [id number] time of the visit in counseling / coordination of care. Prescription instructions reviewed with patient as applicable. Potential red flag symptoms discussed with the patient. Reviewed appropriate action plan to take if red flag symptoms occur. Patient agreeable to treatment plan. Lucille Callahan APRN.CNP [address] [place] [address] documented in this encounter [facility] 03-07-2022 History of Present illness Narrative null (CCF:Not available AMW:[id number]) Visit Summary for Do De Guzman - Gender: Female - Date of : 1965 ( ) Date: [id number] - Duration: 6 minutes Patient: Do De Guzman Provider: Shea Abdul Patient Contact Information Address [address] [place] [phone] Visit Topics not feeling well for over a week - took at home covid test last saturday and was negative [Added By: Self - 2022-03-07] Triage Questions REQUIRED: Do you have Medicare or Medicaid Insurance?Answer [no] Do you have a cough, shortness of breath, difficulty breathing, fever, chills, headache, sore throat, muscles aches, acute change in smell or taste?Answer [slight cough, low grade fever, swollen glands, tired] Have you been in contact with anyone confirmed with COVID 19 or suspected of having COVID 19 within the past 14 days?Answer [no] Do you have any vulnerable family members in the home (infant, , weak immune system, lung disease, active cancer, elderly)?Answer [no] Do you have any of the following: weak immune system, asthma or chronic lung disease, kidney problems and on dialysis, active cancer, diabetes or heart disease or high blood pressure, HIV or organ transplant?Answer [no] Are you currently working in a healthcare facility?Answer [no] What is the address where you are currently located? This is important in case of a medical emergency.Answer [[address]] Please enter a number I can contact you in the event we are disconnected.Answer [[phone]] Conversation Transcripts [Notification] Ayden Guzman, Global Staff, will help you prepare for your visit. She is assisting Shea Abdul Family Physician.[Ayden Guzman] Shelialo, and thank you for connecting. While you are waiting for the doctor, are there any questions I can answer for you about our service? Please contact customer service if you have questions about billing, insurance, or technical issues. Visits work best with a stable WiFi connection, so please make sure you are connected before we begin.[Notification] Ayden Guzman has left the room.[Notification] You are connected with [facility].[Notification] Do De Guzman is located in [place].[Notification] Do De Guzman has shared health history...[Notification] Shea Abdul has added a diagnosis/procedure code. Diagnosis Acute sinusitis, unspecified Value: J01.90 Code: ICD-10-CM Procedures Value: 10918 Code: CPT-4 OL DIG E/M SVC 11-20 MIN Medications Prescribed Augmentin Dose : 1 tablet Strength : 875-125 mg Route : oral Frequency : every 12 hours. Refills : 0 Instructions to the Pharmacist : Substitutions allowed Provider Notes Mode of Communication: Computer. Patients information verified. History: Patient is a 57 yo F presenting for a fever 100.7 F, fatigue, neck lymph node swelling, mild cough, nasal discharge, post nasal drip. She denies shortness of breath, wheezing, diarrhea, nausea, vomiting, loss of taste/smell, tobacco use, nasal congestion, sinus pressure, sore throat. Recent Covid test was negative.Symptoms present for 9 days. She has not tried any medication. Past Medical History:Reviewed Medications:Reviewed Allergies:NoneExam: Vitals signs (if available): Weight: General:Appears comfortable, in no acute distressEyes: Nose:no discharge Sinuses:None tenderPharynx: Neck:Respiratory:Normal respirations. Other: Assessment: Acute sinusitis Diagnosis code: Plan: Symptoms present for 9 days, still with fever. Below antibiotic sent to pharmacy, antibiotic counseling provided. Symptomatic measures, and below home care encouraged. Counseled extensively on worsening signs, advised to follow up if present. Patient was in agreement with plan, and verbalized understanding. Home care: Acetaminophen as needed for pain or fever May also use Neti pot, nasal saline or throat lozenges as needed, adequate fluid hydration, tea with honey, vicks to chest, humidifier use. Referral or follow up: As needed for worsening or if no improvement in 5-7 daysAdditional recommendations: If you received a prescription at this visit and you have a question or problem please call [phone] for prescription assistance Please print a copy of this note and send it to your regular doctor, or take it to your next visit so it may be included in your medical record Please see your primary care provider on an annual basis or more frequently if directed The patient voiced understanding and agreement with plan. Electronically signed by: Shea Abdul( ) documented in this encounter [facility] Discharge summary Note Date/Time April 07, 2025 9:59am [facility] Medical Records Department [address] [place] [address] Emergency Department Summary 04/07/25 MR#: [id number] Acct: [id number] Name: DO DE GUZMAN Rep #:[id number] : 1965 60 From: Yosi Chaney MD PCP: Dr. Uriel Lovelace, DO Status:RE G ER Location: ED HPI HPI - GI History of Present Illness Chief Complaint: Foreign Body Narrative Narrative: 60-year-old female who denies significant past medical history presents with foreign body sensation/lump in her throat that she has had since this morning. She relays history that about a month ago she woke up with a feeling that she was going to vomit. She did. She felt this lump in her throat, but it resolved. However, yesterday evening she woke up at midnight, approximately 8 hours ago which she had the same feeling. She did end up vomiting, but then at 2 or 3:00 in the morning she awoke with this foreign body sensation and swellingin her throat that she states that she can palpate. She denies any difficulty swallowing and states she is able to drink water and swallow her own saliva, butshe feels that there is a lump in her throat that is larger and will not go away. No exacerbating or alleviating factors. PFSH PFSH Allergy/AdvReac Type Severity Reaction Status Date / Time No Known Allergies Allergy Verified 04/07/25 07:33 Social History Smoking Status: Never smoker ROS ROS ED ROS Narrative Review of systems positive for lump in throat at anterior base of neck that patient can palpate. Denies any difficulty swallowing or breathing. No recent fevers or chills. No exacerbating or alleviating factors. EXAM Physical Exam Narrative Exam Narrative: Afebrile. Vital signs noted. Nontoxic-appearing. Cardiovascular examination reveals regular rate and rhythm. Lungs are clear to auscultation bilaterally. HEENT examination is grossly unremarkable. No drooling or trismus. Airway is patent. Posterior pharynx patent. I do not palpate a large lump at the base ofher trachea, but I am able to palpate her thyroid cartilage without crepitance. Const Vital Signs: 04/07/25 07:30 04/07/25 07:31 Temperature 98.6 F Temperature Source Oral Pulse Rate 83 Respiratory Rate 16 Respiratory Effort Normal Non-Labored Respiratory Pattern Normal Blood Pressure 133/72 H Blood Pressure Mean 92 Pulse Ox 97 Oxygen Delivery Method Room Air MDM MDM MDM Narrative Medical decision making narrative: Differential diagnosis includes but not limited to globus hystericus versus foreign body sensation versus esophageal rupture versus hematoma. I have low suspicion for esophageal food impaction as she is handling her secretions. She will be given a p.o. challenge. CT imaging will be obtained to rule out foreignbody and hematoma. I reviewed her laboratory work and she has normal white count 6.8 with hemoglobin 14.1, hematocrit 42.8, platelet count normal at 281. I also reviewedthe radiology report of the CT of the soft tissue neck and there is no acute obstruction, no foreign body. I also reviewed her BMP. BMP obtained and reviewed and shows glucose 116 but BUN normal at 13 and creatinine 0.85, normal anion gap of 11. Patient able to tolerate p.o. challenge. At this point in time, I do feel that she may have more GERD like symptoms, and she was referred to gastroenterology for possible upper endoscopy. I do not feel she requires admission. Return instructions to the emergency department were reviewed. Disposition is discharged home in stable condition. History & Record Review Discussion w/independent historian: Patient Lab Data Attestation: I reviewed the patient's lab results. Labs: Laboratory Results - last 24 hr 04/07/25 08:10 WBC 6.8 RBC 5.16 Hgb 14.1 Hct 42.8 MCV 82.9 MCH 27.3 MCHC 32.9 RDW Std Deviation 39.9 RDW Coeff of Rafa 13.4 Plt Count 281 MPV 10.3 Immature Gran % (Auto) 0.300 Neut % (Auto) 75.1 H Lymph % (Auto) 14.2 L Hayes % (Auto) 7.3 Eos % (Auto) 2.5 Baso % (Auto) 0.6 Absolute Neuts (auto) 5.1 Absolute Lymphs (auto) 0.97 Nucleated RBC % 0 Sodium 140 Potassium 4.1 Chloride 105 Carbon Dioxide 24.9 Anion Gap 11 BUN 13 Creatinine 0.85 Estim Creat Clear Calc 79.01 Est GFR (MDRD) Non-Af 79 BUN/Creatinine Ratio 15.3 Glucose 116 H Calcium 9.5 Radiography Diagnostic Testing: Clinical Impression(s) from Imaging Studies Soft Tissue Neck CT 04/07/25 07:48 IMPRESSION: NORMAL CONTRAST-ENHANCED CT OF THE SOFT TISSUES OF THE NECK. Reading Location: [facility] Discharge Plan Triage Chief Complaint: Foreign Body ED Provider: Yosi Chaney Dx/Rx/DC Orders Clinical Impression: Foreign body sensation in throat, GERD (gastroesophageal reflux disease) Instructions: ED GERD (Adult), ED Pain, Acute, Uncertain Cause Primary Care Provider: Uriel Lovelace Referrals: Uriel Lovelace DO [Primary Care Provider] - Friend,DO Jose [Med Staff - Active Staff] - As soon as possible Activity Restrictions/Additional Instructions: Return to the emergency department with difficulty swallowing, new or worsening symptoms. You may want to start [id number]-[id number] omeprazole, and follow-up withgastroenterology. Print Language: Syriac Disposition Disposition: Home, Self Care What to do if you have Problems For any increased pain, shortness of breath, bleeding, nausea or vomiting, chestpain, or any unexpected problems, contact your Primary Care Provider. Call [facility] ([phone]) or report to the closest Emergency Room. Call 911 if necessary. 04/07/25 0959 <Electronically signed by Yosi Chaney MD> Cosigner Signature (if applicable): CC: Dr. Uriel Lovelace DO ~ Signed [facility] Work Phone: EvApptimizekkypu noteNo assessment information available [facility] Work Phone: Evaluation note* Diagnosis Wellness examination- Primary Fatigue, unspecified type Post-nasal drainage Unspecified sinusitis (chronic) Obesity, Class II, BMI 35-39.9 Obesity, unspecified Dysphagia, unspecified type [facility] [place] [facility]* Diagnosis Fatigue, unspecified type- Primary Iron deficiency anemia, unspecified iron deficiency anemia type Hyperthyroidism Thyrotoxicosis without mention of goiter or other cause, without mention of thyrotoxic crisis or storm Vitamin D deficiency Unspecified vitamin D deficiency [facility] [place] [facility]* Diagnosis Hyperthyroidism Thyrotoxicosis without mention of goiter or other cause, without mention of thyrotoxic crisis or storm [facility] [place] [facility]* Diagnosis Abnormal ultrasound of thyroid gland- Primary Nonspecific abnormal results of thyroid function study Hyperthyroid [facility] Diagnosis Multiple thyroid nodules- Primary Nontoxic multinodular goiter Hyperthyroidism Thyrotoxicosis without mention of goiter or other cause, without mention of thyrotoxic crisis or storm documented in this encounter [facility] note* Diagnosis Hyperthyroidism- Primary Thyrotoxicosis without mention of goiter or other cause, without mention of thyrotoxic crisis or storm documented in this encounter [facility] note* Diagnosis Hyperthyroidism- Primary Thyrotoxicosis without mention of goiter or other cause, without mention of thyrotoxic crisis or storm documented in this encounter [facility] note* Diagnosis Hyperthyroidism- Primary Thyrotoxicosis without mention of goiter or other cause, without mention of thyrotoxic crisis or storm Multiple thyroid nodules Nontoxic multinodular goiter documented in this encounter [facility] note* Diagnosis Hyperthyroidism Thyrotoxicosis without mention of goiter or other cause, without mention of thyrotoxic crisis or storm Multiple thyroid nodules Nontoxic multinodular goiter documented in this encounter [facility] note* Diagnosis Wellness examination documented in this encounter [facility] note* Diagnosis Multiple thyroid nodules- Primary Nontoxic multinodular goiter Abnormal results of thyroid function studies Nonspecific abnormal results of thyroid function study documented in this encounter [facility] note* Diagnosis Multiple thyroid nodules- Primary Nontoxic multinodular goiter documented in this encounter [facility] note* Diagnosis Multiple thyroid nodules- Primary Nontoxic multinodular goiter documented in this encounter [facility] note* Diagnosis Thyroid nodule- Primary Nontoxic uninodular goiter documented in this encounter [facility] note* Diagnosis Abnormal results of thyroid function studies- Primary Nonspecific abnormal results of thyroid function study documented in this encounter [facility] note* Diagnosis Multiple thyroid nodules- Primary Nontoxic multinodular goiter Abnormal results of thyroid function studies Nonspecific abnormal results of thyroid function study documented in this encounter [facility] note* Diagnosis Hyperthyroidism- Primary Thyrotoxicosis without mention of goiter or other cause, without mention of thyrotoxic crisis or storm Abnormal results of thyroid function studies Nonspecific abnormal results of thyroid function study documented in this encounter [facility] note* Diagnosis Abnormal results of thyroid function studies- Primary Nonspecific abnormal results of thyroid function study Multiple thyroid nodules Nontoxic multinodular goiter Class 3 severe obesity with body mass index (BMI) of 40.0 to 44.9 in adult, unspecified obesity type, unspecified whether serious comorbidity present (HCC) documented in this encounter [facility] note* Diagnosis Severe obesity (BMI >= 40) (HCC)- Primary Morbid obesity Sleep apnea-like behavior Insulin resistance Dysmetabolic Syndrome X Dyslipidemia Other and unspecified hyperlipidemia documented in this encounter [facility] for referral (narrative)* Diagnostic Procedure Only (Routine) - Authorized Specialty Diagnoses / Procedures Referred By Contac t Referred To Contact [facility] Diagnoses Wellness examination Procedures PEMA SCREENING SCREENING MAMMOGRAPHY BI 2-VIEW BREAST INC CAD Lucille Callahan APRN.IRRIGATIONIST [address] [place] [address] [facility] [address] [place] [address] Referral ID Status Reason Start Date Expiration Date Visits Requested Visits Authorized [id number] Authorized Auto-Generat ed Referral 04/02/2022 05/02/2023 [address] [facility] for referral (narrative)* Diagnostic Procedure Only (Routine) - Authorized Specialty Diagnoses / [facility] Diagnoses Hyperthyroidism Procedures US THYROID/PARATHYROID US SOFT TISSUE HEAD & NECK REAL TIME IMGE DOC Lucille Callahan APRN.IRRIGATIONIST [address] [place] [address] Us Imaging Referral ID Status Reason Start Date Expiration Date Visits Requested Visits Authorized [id number] Authorized Auto-Generat ed Referral 04/04/2022 05/04/2023 1 1 * Consult, Test, Treat (Routine) - Authorized Specialty Diagnoses / Procedures Referred By Contac t Referred To Contact Endocrinology Diagnoses Hyperthyroidism Procedures CONSULT TO ENDOCRINOLOGY OFFICE/OUTPATIENT [facility] 60-74 MINUTES Lucille Callahan APRN.IRRIGATIONIST [address] [place] [address] Referral ID Status Reason Start Date Expiration Date Visits Requested Visits Authorized [id number] Authorized PCP Requested Referral 04/04/2022 04/04/2023 [address] [facility] for referral (narrative)* Diagnostic Procedure Only (Routine) - Closed Specialty Diagnoses / Procedures Referred By Contac t Referred To Contact US IMAGING Diagnoses Hyperthyroidism Procedures US THYROID/PARATHYROID US SOFT TISSUE HEAD & NECK REAL TIME IMGE Lucille Rodriguez APRN.CNP [address] [place] [address] Us Imaging Referral ID Status Reason Start Date Expiration Date V isits Requested Visits Authorized [id number] Closed Auto-Generate d Referral 04/04/2022 05/04/2023 [address] [facility] for referral (narrative)* Diagnostic Procedure Only (Routine) - Pending Review Specialty Diagnoses / Procedures Referred By Contact Referred To Contact MOLECULAR & FUNCTIONAL IMAGING Diagnoses Hyperthyroidism Procedures NM THY UPTAKE AND SCAN THYROID UPTAKE W/BLOOD FLOW SNGLE/MULT JENNIFFER MARCELA Dex Munguia MD [address] [id number] Molecular & Functional Imaging [address] [place] [address] Referral ID Status Reason Start Date Expiration Date Visits Requested Visits Authorized [id number] Pending Review Auto-Generat ed Referral 05/07/2022 06/06/2023 [address] [facility] for referral (narrative)* Diagnostic Procedure Only (Routine) - Pending Review Specialty Diagnoses / Procedures Referred By Contac t Referred To Contact MOLECULAR & FUNCTIONAL IMAGING Diagnoses Hyperthyroidism Multiple thyroid nodules Procedures NM THY UPTAKE ONLY THYROID UPTAKE SINGLE/MULTIPLE QUANT MEASUREMENT Dex Munguia MD [address] [place] [address] Molecular & Functional Imaging [address] [place] [address] Referral ID Status Reason Start Date Expiration Date Visits Requested Visits Authorized [id number] Pending Review Auto-Generat ed Referral 05/09/2022 06/08/2023 [address] [facility] for referral (narrative)* Diagnostic Procedure Only (Routine) - Closed Specialty Diagnoses / Procedures Referred By Contac t Referred To Contact MOLECULAR & FUNCTIONAL IMAGING Diagnoses Hyperthyroidism Multiple thyroid nodules Procedures NM THY UPTAKE ONLY THYROID UPTAKE SINGLE/MULTIPLE QUANT MEASUREMENT Dex Munguia MD [address] [place] [address] Molecular & Functional Imaging [address] [place] [address] Referral ID Status Reason Start Date Expiration Date V isits Requested Visits Authorized [id number] Closed Auto-Generate d Referral 05/09/2022 06/08/2023 [address] [facility] for referral (narrative)* Diagnostic Procedure Only (Routine) - Closed Specialty Diagnoses / Procedures Referred By Nicky t Referred To Contact BR IMAGING Diagnoses Wellness examination Procedures PEMA SCREENING SCREENING MAMMOGRAPHY BI 2-VIEW BREAST INC Lucille Alford APRN.IRRIGATIONIST [address] [place] [address] Br Imaging [address] [place] [address] Referral ID Status Reason Start Date Expiration Date V isits Requested Visits Authorized [id number] Closed Auto-Generate d Referral 04/02/2022 05/02/2023 [address] [facility] for referral (narrative)No reason for referral information [facility]: Reason for visit Narrative* Diagnostic Procedure Only (Routine) - Closed Specialty Diagnoses / Procedures Referred By Nicky t Referred To Contact US IMAGING Diagnoses Hyperthyroidism Procedures US THYROID/PARATHYROID US SOFT TISSUE HEAD & NECK REAL TIME IMGE Lucille Rodriguez APRN.IRRIGATIONIST [address] [place] [address] Us Imaging Referral ID Status Reason Start Date Expiration Date V isits Requested Visits Authorized [id number] Closed Auto-Generate d Referral 04/04/2022 05/04/2023 [address] [facility] for visit Narrative* Diagnostic Procedure Only (Routine) - Closed Specialty Diagnoses / Procedures Referred By Nicky t Referred To Contact BR IMAGING Diagnoses Wellness examination Procedures PEMA SCREENING SCREENING MAMMOGRAPHY BI 2-VIEW BREAST INC CAD Lucille Callahan, PROCESS SUPERVISOR.IRRIGATIONIST [address] [place] [address] Br Imaging [address] [place] [address] Referral ID Status Reason Start Date Expiration Date V isits Requested Visits Authorized [id number] Closed Auto-Generate d Referral 04/02/2022 05/02/2023 1 1 [facility] Chief Complaint and Reason for Visit Chief Complaint PFIZER VACCINE Chief Complaint Admit Date throat lump April 07, 2025 7:28a m Advance Directives No Advanced Directives Records FoundDocuments on File Type Date Recorded 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 No April 07, 2025 7:30am Summary Purpose Family History No Family History Records FoundNo Family History Records FoundNo Family History Records Found Reason for Referral Specialty Diagnoses / Procedures Referred By Nicky moore Referred To Contact Diagnoses Class 3 severe obesity with body mass index (BMI) of 40.0 to 44.9 in adult, unspecified obesity type, unspecified whether serious comorbidity present (HCC) Procedures ENDOCRINE MEDICAL WEIGHT MANAGEMENT OFFICE/OUTPATIENT [facility] 60 MINUTES Dex Munguia MD [address] [place] [address] Referral ID Status Reason Start Date Expiration Date Visits Requested Visits Authorized [id number] Authorized PCP Requested Referral 04/20/2024 04/20/2025 1 1 Specialty Diagnoses / Procedures Referred By Nicky moore Referred To Contact US IMAGING Diagnoses Abnormal results of thyroid function studies Multiple thyroid nodules Procedures US THYROID/PARATHYROID US SOFT TISSUE HEAD & NECK REAL TIME IMGE DOCM Dex Munguia MD [address] [place] [address] [facility] [place] [address] Referral ID Status Reason Start Date Expiration Date Visits Requested Visits Authorized [id number] Pending Review Auto-Generat ed Referral 04/20/2024 05/20/2025 1 1 Specialty Diagnoses / Procedures Referred By Contac t Referred To Contact Diagnoses Sleep apnea-like behavior Severe obesity (BMI >= 40) (HCC) Procedures ENDOCRINOLOGY DIETITIAN VISIT (MNT) MEDICAL NUTRITION ASSMT&IVNTJ INDIV EACH 15 OK MEDICAL NUTRITION ASSMT&IVNTJ INDIV EACH 15 [place] MEDICAL NUTRITION ASSMT&IVNTJ INDIV EACH 15 OK MEDICAL NUTRITION ASSMT&IVNTJ INDIV EACH [place] [address] [place] [id number] Referral ID Status Reason Start Date Expiration Date Visits Requested Visits Authorized [id number] Authorized PCP Requested Referral 06/19/2024 06/19/2025 1 1 Specialty Diagnoses / Procedures Referred By Contac t Referred To Contact Diagnoses Sleep apnea-like behavior Severe obesity (BMI >= 40) ([facility]) Procedures CONSULT TO SLEEP MEDICINE - ADULT OFFICE/OUTPATIENT [facility] 60 [place] [address] [place] [address] Referral ID Status Reason Start Date Expiration Date Visits Requested Visits Authorized [id number] Authorized PCP Requested Referral 06/19/2024 06/19/2025 1 1 Additional Source Comments Goals (unrecognized section and content) Goals may be documented in a n alternate sectionGoals may be documented in an alternate section Source Comments (unrecognize d section and content) In the event this informatio n is protected by the Federal Confidentiality of Alcohol and Drug Abuse Patient Records regulations: The Federal rules restrict any use of the information to criminally investigate or prosecute any alcohol or drug abuse patient.[facility] the event this information is protected by the Federal Confidentiality of Alcohol and Drug Abuse Patient Records regulations: The Federal rules restrict any use of the information to criminally investigate or prosecute any alcohol or drug abuse patient.[facility] HospitalIn the event this information is protected by the Federal Confidentiality of Alcohol and Drug Abuse Patient Records regulations: The Federal rules restrict any use of the information to criminally investigate or prosecute any alcohol or drug abuse patient.[facility] HospitalIn the event this information is protected by the Federal Confidentiality of Alcohol and Drug Abuse Patient Records regulations: The Federal rules restrict any use of the information to criminally investigate or prosecute any alcohol or drug abuse patient.[facility] HospitalIn the event this information is protected by the Federal Confidentiality of Alcohol and Drug Abuse Patient Records regulations: The Federal rules restrict any use of the information to criminally investigate or prosecute any alcohol or drug abuse patient.[facility] HospitalIn the event this information is protected by the Federal Confidentiality of Alcohol and Drug Abuse Patient Records regulations: The Federal rules restrict any use of the information to criminally investigate or prosecute any alcohol or drug abuse patient.[facility] HospitalIn the event this information is protected by the Federal Confidentiality of Alcohol and Drug Abuse Patient Records regulations: The Federal rules restrict any use of the information to criminally investigate or prosecute any alcohol or drug abuse patient.[facility] HospitalIn the event this information is protected by the Federal Confidentiality of Alcohol and Drug Abuse Patient Records regulations: The Federal rules restrict any use of the information to criminally investigate or prosecute any alcohol or drug abuse patient.[facility] HospitalIn the event this information is protected by the Federal Confidentiality of Alcohol and Drug Abuse Patient Records regulations: The Federal rules restrict any use of the information to criminally investigate or prosecute any alcohol or drug abuse patient.[facility] HospitalIn the event this information is protected by the Federal Confidentiality of Alcohol and Drug Abuse Patient Records regulations: The Federal rules restrict any use of the information to criminally investigate or prosecute any alcohol or drug abuse patient.[facility] HospitalIn the event this information is protected by the Federal Confidentiality of Alcohol and Drug Abuse Patient Records regulations: The Federal rules restrict any use of the information to criminally investigate or prosecute any alcohol or drug abuse patient.[facility] HospitalIn the event this information is protected by the Federal Confidentiality of Alcohol and Drug Abuse Patient Records regulations: The Federal rules restrict any use of the information to criminally investigate or prosecute any alcohol or drug abuse patient.[facility] HospitalIn the event this information is protected by the Federal Confidentiality of Alcohol and Drug Abuse Patient Records regulations: The Federal rules restrict any use of the information to criminally investigate or prosecute any alcohol or drug abuse patient.[facility] HospitalIn the event this information is protected by the Federal Confidentiality of Alcohol and Drug Abuse Patient Records regulations: The Federal rules restrict any use of the information to criminally investigate or prosecute any alcohol or drug abuse patient.[facility] HospitalIn the event this information is protected by the Federal Confidentiality of Alcohol and Drug Abuse Patient Records regulations: The Federal rules restrict any use of the information to criminally investigate or prosecute any alcohol or drug abuse patient.[facility] HospitalIn the event this information is protected by the Federal Confidentiality of Alcohol and Drug Abuse Patient Records regulations: The Federal rules restrict any use of the information to criminally investigate or prosecute any alcohol or drug abuse patient.[facility] HospitalIn the event this information is protected by the Federal Confidentiality of Alcohol and Drug Abuse Patient Records regulations: The Federal rules restrict any use of the information to criminally investigate or prosecute any alcohol or drug abuse patient.[facility] HospitalIn the event this information is protected by the Federal Confidentiality of Alcohol and Drug Abuse Patient Records regulations: The Federal rules restrict any use of the information to criminally investigate or prosecute any alcohol or drug abuse patient.[facility] HospitalIn the event this information is protected by the Federal Confidentiality of Alcohol and Drug Abuse Patient Records regulations: The Federal rules restrict any use of the information to criminally investigate or prosecute any alcohol or drug abuse patient.[facility] HospitalIn the event this information is protected by the Federal Confidentiality of Alcohol and Drug Abuse Patient Records regulations: The Federal rules restrict any use of the information to criminally investigate or prosecute any alcohol or drug abuse patient.[facility] HospitalIn the event this information is protected by the Federal Confidentiality of Alcohol and Drug Abuse Patient Records regulations: The Federal rules restrict any use of the information to criminally investigate or prosecute any alcohol or drug abuse patient.[facility] HospitalIn the event this information is protected by the Federal Confidentiality of Alcohol and Drug Abuse Patient Records regulations: The Federal rules restrict any use of the information to criminally investigate or prosecute any alcohol or drug abuse patient.[facility] HospitalIn the event this information is protected by the Federal Confidentiality of Alcohol and Drug Abuse Patient Records regulations: The Federal rules restrict any use of the information to criminally investigate or prosecute any alcohol or drug abuse patient.[facility] HospitalIn the event this information is protected by the Federal Confidentiality of Alcohol and Drug Abuse Patient Records regulations: The Federal rules restrict any use of the information to criminally investigate or prosecute any alcohol or drug abuse patient.[facility] HospitalIn the event this information is protected by the Federal Confidentiality of Alcohol and Drug Abuse Patient Records regulations: The Federal rules restrict any use of the information to criminally investigate or prosecute any alcohol or drug abuse patient.[facility] HospitalIn the event this information is protected by the Federal Confidentiality of Alcohol and Drug Abuse Patient Records regulations: The Federal rules restrict any use of the information to criminally investigate or prosecute any alcohol or drug abuse patient.[facility] HospitalIn the event this information is protected by the Federal Confidentiality of Alcohol and Drug Abuse Patient Records regulations: The Federal rules restrict any use of the information to criminally investigate or prosecute any alcohol or drug abuse patient.[facility] HospitalIn the event this information is protected by the Federal Confidentiality of Alcohol and Drug Abuse Patient Records regulations: The Federal rules restrict any use of the information to criminally investigate or prosecute any alcohol or drug abuse patient.[facility] HospitalIn the event this information is protected by the Federal Confidentiality of Alcohol and Drug Abuse Patient Records regulations: The Federal rules restrict any use of the information to criminally investigate or prosecute any alcohol or drug abuse patient.[facility] HospitalIn the event this information is protected by the Federal Confidentiality of Alcohol and Drug Abuse Patient Records regulations: The Federal rules restrict any use of the information to criminally investigate or prosecute any alcohol or drug abuse patient.[facility] HospitalIn the event this information is protected by the Federal Confidentiality of Alcohol and Drug Abuse Patient Records regulations: The Federal rules restrict any use of the information to criminally investigate or prosecute any alcohol or drug abuse patient.[facility] Care Teams (unrecognized sec tion and content) Shop Technician Relationship Specialty Start Date End Date Uriel Lovelace DO [address] [place] [address] PCP - General Family Practice 02/26/14 Team Status: Active Member Role Status Dates Dr. Uriel Lovelace DO Primary Care Provider Active Team Status: Inactive Member Role Status Dates Yosi Chaney MD Emergency Provider Active Star t: April 07, 2025 End: April 07, 2025 Dr. Uriel Lovelace DO Primary Care Provider Active Start: April 07, 2025 End: April 07, 2025 Reason for Visit (unrecogniz ed section and content) Reason Comments Follow Up Specialty Diagnoses / Procedures Referred By Contac t Referred To Contact Endocrinology Diagnoses Hyperthyroidism Procedures CONSULT TO ENDOCRINOLOGY OFFICE/OUTPATIENT [facility] 60-74 MINUTES Lucille Callahan, YASMIN.IRRIGATIONIST [address] [place] [address] Referral ID Status Reason Start Date Expiration Date V isits Requested Visits Authorized [id number] Closed PCP Requested Referral 04/04/2022 04/04/2023 1 1 Reason Comments Physical Reason Comments Results Reason Comments Consult thyroid nodules Specialty Diagnoses / Procedures Referred By Contac t Referred To Contact General Surgery Diagnoses Multiple thyroid nodules Procedures CONSULT TO GENERAL SURGERY OFFICE/OUTPATIENT [facility] 60-74 MINUTES Lucille Callahan, YASMIN.IRRIGATIONIST [address] [place] [address] Referral ID Status Reason Start Date Expiration Date V isits Requested Visits Authorized [id number] Closed PCP Requested Referral 04/12/2022 04/12/2023 1 1 Reason Comments Consult Reason Comments THYROID NON ENDO-MD Reason Comments Nm Pet Request Reason Comments Radiology NM Specialty Diagnoses / Procedures Referred By Contac t Referred To Contact MOLECULAR & FUNCTIONAL IMAGING Diagnoses Hyperthyroidism Multiple thyroid nodules Procedures NM THY UPTAKE ONLY THYROID UPTAKE SINGLE/MULTIPLE QUANT MEASUREMENT Dex Munguia MD [address] [place] [address] Molecular & Functional Imaging [address] [place] [address] Referral ID Status Reason Start Date Expiration Date V isits Requested Visits Authorized [id number] Closed Auto-Generate d Referral 05/09/2022 06/08/2023 1 1 Reason Comments FNA Biopsy of 2 thyroid nodules Establis hed Patient Reason Comments Results Specialty Diagnoses / Procedures Referred By Contac t Referred To Contact Diagnoses Thyroid nodule Procedures BIOPSY THYROID PERCUTANEOUS CORE NEEDLE BIOPSY THYROID [facility] [address] [place] [address] Referral ID Status Reason Start Date Expiration Date Visits Re quested Visits Authorized [id number] 1 1 Reason Comments Patient Question Labs and Upcoming Ap pt Reason Comments Thyroid Problem Reason Comments Medical Weight Management Specialty Diagnoses / Procedures Referred By Nicky t Referred To Contact Diagnoses Class 3 severe obesity with body mass index (BMI) of 40.0 to 44.9 in adult, unspecified obesity type, unspecified whether serious comorbidity present (HCC) Procedures ENDOCRINE MEDICAL WEIGHT MANAGEMENT OFFICE/OUTPATIENT [facility] 60 MINUTES Dex Munguia MD [address] [place] [address] Referral ID Status Reason Start Date Expiration Date V isits Requested Visits Authorized [id number] Closed PCP Requested Referral 04/20/2024 04/20/2025 1 1 Reason Comments Appointment INFORMATION SOURCE (unrecogn ized section and content) DATE CREATED AUTHOR 10/23/2022 [facility] DATE CREATED AUTHOR AUTHOR'S ORGANIZ ATION 08/20/[address] [facility] DATE CREATED AUTHOR AUTHOR'S ORGANIZ ATION 04/13/2025 [facility] FOR RECORDS PERTAINING TO PATIENTS WHO ARE OR HAVE BEEN ENROLLED IN A CHEMICAL DEPENDENCY/SUBSTANCEABUSE PROGRAM, SOME INFORMATION MAY BE OMITTED. This clinical summary was aggregated from multiple sources. Caution should be exercised in using it in the provision of clinical care. This summary normalizes information from multiple sources, and as a consequence, information in this document may materially change the coding, format and clinical context of patient data. In addition, data may be omitted in some cases. CLINICAL DECISIONS SHOULD BE BASED ON THE PRIMARY CLINICAL RECORDS. [employer] provides no warranty or guarantee of the accuracy or completeness of information in this document.
[2025-04-18] MEDS: Ciprofloxacin 0.3% 2.5ml Bottle 2 DRP RIGHT EYE (09:44)
[2025-04-18] MEDS: Diphth,Pertuss(Acell),Tet Vac 0.5 ML Vial IM (09:45)
[2025-04-18] MEDS: Fluorescein 1 MG STRIP 1 STRIP RIGHT EYE (09:46)
== END 2025-04-18 09:57 | disposition home or self-care (01) ==
PROVIDERS: Emergency Provider Emergency Medicine; PCP Student in an Organized Health Care Education/Training Program; Visit Provider Emergency Medicine
DX: S05.01XA Injury of conjunctiva and corneal abrasion without foreign body, right eye, initial encounter (principal); W55.03XA Scratched by cat, initial encounter
CPT/HCPCS: 90715; 99282

== ENCOUNTER 2025-06-22 11:51 | Day surgery (SDC) | payer BC, SELFPAY ==
[2025-06-22] VITALS (8 sets, daily range): BP systolic 95–121; BP diastolic 52–67; PULSE 79–89; RESP 14–16; TEMP 36.1–36.8; O2SAT 94–97; BMI 40.4
[2025-06-22] MEDS: Lactated Ringers 1,000 ML 15 ML IV (12:27)
--- NOTE | 2025-06-22 12:46 | PCM.PRE.AN2 ---
ASA Classification* ASA Classification ASA Classification: 3 Assessment & Plan Anesthesia* Anesthesia Assessment Anesthesia Assessment: Discussed sedation and/or anesthesia options, risks, benefits, and alternatives with patient/parents/legal guardian/POA. Questions invited. The patient/parents/legal guardian/POA seems to understand and agrees to proceed with anesthesia plan. Reviewed the physical assessment, medical history, allergy history and patient home medications list prior to surgery/procedure/anesthetic and documented any changes. Performed airway and anesthesia risk assessments. Anesthesia Type Anesthesia Type: MAC History Source History Obtained from:: Patient and Chart Anesthesia Focused Assessment* Temperature: 97.3 F Pulse Rate: 89 Blood Pressure: 117/52 Respiratory Rate: 16 Pulse Ox: 97 Oxygen Delivery Method: Room Air Airway Assessment Mouth opens: >3 cm Mallampati Score: IV Teeth Condition: Caps/Crowns (Patient has several crowns. They are all tight.) and Missing (Patient has been 1 missing left upper molar. Rest are tight.) Neck Range of motion (ROM): Limited ROM (Slight Decrease) Labs Anesthesia Preop lab: CBC WBC 6.8 K/mm3 (4.4-11.0) 04/07/25 08:10 04/07/25 RBC 5.16 M/mm3 (4.2-5.4) 04/07/25 08:10 04/07/25 Hgb 14.1 g/dL (12.0-15.0) 04/07/25 08:10 04/07/25 Hct 42.8 % (37-47) 04/07/25 08:10 04/07/25 Plt Count 281 K/mm3 (150-450) 04/07/25 08:10 04/07/25 CHEMISTRY Potassium 4.1 mmol/L (3.3-5.1) 04/07/25 08:10 04/07/25 Sodium 140 mmol/L (133-145) 04/07/25 08:10 04/07/25 BUN 13 mg/dL (4-19) 04/07/25 08:10 04/07/25 Creatinine 0.85 mg/dL (0.70-1.20) 04/07/25 08:10 04/07/25 Glucose 116 mg/dL (70-99) H 04/07/25 08:10 04/07/25 COAG Pre-Assessment Diagnosis/Proposed Procedure Planned Operative Procedure(s): EGD Anesthesia History 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 When Was Last Pacemaker Check QUESTION #4 FULL TEXT: You/Your Family Experience fever (hyperthermia) with Anesthesia Last Oral Intake Last Oral intake: Last Oral Intake NPO since 08:00 06/22/25 12:15 Meds taken in AM with sips of No 06/22/25 12:15 water? Meds patient instructed to take am of surgery Any additional information?: Yes NPO since: 08:00 (Patient water 8 AM.) Meds taken in AM with sips of water?: No PONV PONV - assistant chief train dispatcher: PONV - assistant chief train dispatcher Female Yes 06/16/25 15:57 HX of Motion Sickness No 06/16/25 15:57 HX of N/V After Surgery No 06/16/25 15:57 Non-Smoker Yes 06/16/25 15:57 Duration of Surgery greater No 06/16/25 15:57 than 60 minutes Number of Risk Factors 2 06/16/25 15:57 PONV Score Moderate Risk 06/16/25 15:57 Height & Weight Height & Weight: Anesthesia: Height & Weight Height 5 ft 1 in 06/22/25 12:15 Weight: 97 kg 06/22/25 12:15 Body Mass Index (BMI) 40.4 06/22/25 12:15 Respiratory Assessment Respiratory Assessment - assistant chief train dispatcher: Respiratory Tract Infection Hx - assistant chief train dispatcher Hx Respiratory Tract Infection No 06/16/25 15:57 STOP Sleep Apnea STOP Sleep Apnea - assistant chief train dispatcher: STOP Sleep Apnea - assistant chief train dispatcher Hx Hypertension No 06/16/25 15:57 Hx Sleep Apnea No 06/16/25 15:57 CPAP BIPAP Do you snore loudly (louder Yes 06/16/25 15:57 than talking or can be heard Do you often feel tired/ Yes 06/16/25 15:57 fatigued/ sleepy during daytime? Has anyone observed you stop Yes 06/16/25 15:57 breathing during sleep? STOP Results Positive 06/16/25 15:57 QUESTION #5 FULL TEXT : Do you snore loudly (louder than talking or can be heard through closed doors)? Tobacco Use History Tobacco Use History - assistant chief train dispatcher: Tobacco Use History - assistant chief train dispatcher Tobacco Use Smoking Status Never smoker 06/16/25 15:57 Hx Tobacco Use No 06/16/25 15:57 Years Smoking Packs Smoked per Day Smoking Cessation Date was within the last 15 years Hx Smoking Cessation Date Hx Smoking Cessation Counseling Hematologic Medial History Hematologic Hx - assistant chief train dispatcher: Hematologic Medical Hx - registered pharmacy technician Hx of Blood Transfusion No 06/16/25 15:57 Hx of Transfusion in last 3 No 06/16/25 15:57 Months Date of Last Transfusion (if within last 3 months) Ever experience any problems No 06/16/25 15:57 with transfusion(s)? Specify any problems Hx of Preganancy in last 3 No 06/16/25 15:57 Months Nurse Filling Out Transfusion JZOLLINGE 06/16/25 15:57 & Questions: Date: 06/16/25 06/16/25 15:57 Time: 15:58 06/16/25 15:57 Patient unable to answer at this time (ie. confused, unrespo /Reproduction History /Reproductive History - assistant chief train dispatcher: /Reproductive Hx- assistant chief train dispatcher Hx Now No 06/16/25 15:57 Gestational Age (in weeks): EDC: Hx Hx Para Hx Section SAB No 06/16/25 15:57 Active Medications Active Medications: Current Medications Generic Name Dose Route Start Last Admin Trade Name Freq PRN Reason Stop Dose Admin Lactated Ringer's 1,000 mls @ 15 mls/hr 06/22/25 12:15 06/22/25 12:27 IV 15 mls/hr .Q48H LILLY Administration PFSH Medical History (Updated 06/16/25 @ 15:56 by Zhane Kerr) Wears glasses Low iron Gastric reflux Heartburn Non-smoker Sleep apnea Home Medications ?Medication ?Instructions ?Recorded ?Last Taken ?Type omeprazole 40 mg capsule,delayed 40 mg PO QDAY #30 caps 05/04/25 06/21/25 Rx release semaglutide (weight loss) 0.25 0.25 mg subcut QWEEK 05/04/25 06/14/25 History mg/0.5 mL subcutaneous pen injector (Wegovy) Allergy/AdvReac Type Severity Reaction Status Date / Time No Known Allergies Allergy Verified 06/22/25 12:09 Surgical History (Updated 06/22/25 @ 12:[address] Carlitos Wilder MD) S/P LEEP S/P thyroid biopsy S/P breast biopsy, right Hx of colonoscopy Social History Smoking Status: Never smoker Review of Systems (Anesthesia) ROS Narrative System reviewed and no additional complaints, except as documented.
--- NOTE | 2025-06-22 13:00 | EGD_PTH ---
PATIENT: FELICIANO RUIZ LOC: EN U#:[id number] AGE/SX: 60/F ROOM: RE06/22/[address]: Dr. Jose Pacheco DO : 1965 BED: DIS: 06/22/2025 SPEC #: [id number] RECD: 06/22/25 13:55 STATUS: COLIN REQ #: [id number] MEHDI: 06/22/25 13:[address]: Jose Pacheco DEPT: SURGICAL PATHOLOGY RECD BY: Ambrose Ceja ENTERED: 06/22/25 14:55 SP TYPE: EGD BIOPSY OT DR: Dr. Uriel Lovelace DO Tissues: A - Esophagus, NOS Procedures: Surgery Specimen Level IV HEADER OPERATION: EGD, biopsy PRE-OP DIAGNOSIS: GERD, Globus sensation TISSUE SUBMITTED: A- Distal esophagus biopsy MICROSCOPIC DIAGNOSIS A. Distal esophagus, biopsy: - Squamocolumnar mucosa negative for goblet cell metaplasia. - Negative for dysplasia. - Rare eosinophil noted within the squamous mucosa. MICROSCOPIC DESCRIPTION Slides are reviewed. GROSS DESCRIPTION A. Received in fixative is one container labeled with the patient's name and designated Distal esophagus biopsy. The specimen consists of two irregular fragments of light stone soft tissue, each measuring 0.4 cm. The specimen is totally submitted in one cassette. CA 06/22/2025 CPT:75119
--- NOTE | 2025-06-22 13:09 | HP.PCM_ITS ---
HPI - General General Date of Admission: 06/22/25 Date of Service: 06/22/25 Chief Complaint: Globus sensation HPI Narrative FELICIANO RUIZ, is a 60 F who presentsChief Complaint: ER f/u for lump in her throat Details: Per ER visit, 60-year-old female who denies significant past medical history presents with foreign body sensation/lump in her throat that she has had since this morning. She relays history that about a month ago she woke up with a feeling that she was going to vomit. She did. She felt this lump in her throat, but it resolved. However, yesterday evening she woke up at midnight, approximately 8 hours ago which she had the same feeling. She did end up vomiting, but then at 2 or 3:00 in the morning she awoke with this foreign body sensation and swelling in her throat that she states that she can palpate. She denies any difficulty swallowing and states she is able to drink water and swallow her own saliva, but she feels that there is a lump in her throat that is larger and will not go away. No exacerbating or alleviating factors. Her laboratory work has normal white count 6.8 with hemoglobin 14.1, hematocrit 42.8, platelet count normal at 281. I also reviewed the radiology report of the CT of the soft tissue neck and there is no acute obstruction, no foreign body. I also reviewed her BMP. BMP obtained and reviewed and shows glucose 116 but BUN normal at 13 and creatinine 0.85, normal anion gap of 11. Patient able to tolerate p.o. challenge. At this point in time, I do feel that she may have more GERD like symptoms, and she was referred to gastroenterology for possible upper endoscopy. I do not feel she requires admission. Return instructions to the emergency department were reviewed. Disposition is discharged home in stable condition. Today, she reports having taken omeprazole OTC for 2 weeks and states complete resolution of globus sensation, but her nausea, belching and HS reflux are returning. Prior to the omeprazole she reports having frequent cough, throat clearing, sinus drainage, and HS reflux so bad I'd wake up choking on it. She reports abdominal bloating if she can't relieve the gas pressure with a belch. Reports daily+ complete BM without straining. She denies difficulty chewing, emesis, abdominal pain, constipation, diarrhea, hematochezia, and melena. [facility] Medical History Wears glasses Low iron Gastric reflux Heartburn Non-smoker Sleep apnea Home Medications ?Medication ?Instructions ?Recorded ?Last Taken ?Type omeprazole 40 mg capsule,delayed 40 mg PO QDAY #30 cap s 05/04/25 06/21/25 Rx release semaglutide (weight loss) 0.25 0.25 mg subcut QWEEK 06/14/25 History mg/0.5 mL subcutaneous pen injector (Wegovy) Allergy/AdvReac Type Severity Reaction Status Date / Time No Known Allergies Allergy Verified 06/22/25 12:09 Surgical History S/P LEEP S/P thyroid biopsy S/P breast biopsy, right Hx of colonoscopy Social History Smoking Status: Never smoker ROS Constitutional Constitutional: Denies fatigue, fever(s), poor appetite, weight gain or weight loss Gastrointestinal Gastrointestinal: Denies belching, bloating, change in bowel habits, change in stool character, chewing difficulty, coffee ground emesis, constipation, cramping, diarrhea, dyspepsia, dysphagia, early satiety, excessive flatus, fecal incontinence, heartburn, hematemesis, hematochezia, hemorrhoids, loose stools, melena, nausea, odynophagia, rectal bleeding, tenesmus, vomiting or weight changes Vital Signs Vital Signs Vital Signs: 06/22/25 12:15 06/22/25 12:15 06/22/25 12:55 Temperature 97.3 F L 97.3 F L Temperature Source Temporal Pulse Rate 89 89 Respiratory Rate 16 16 Respiratory Pattern Normal Blood Pressure 117/52 L 117/52 L Blood Pressure Mean 73 Blood Pressure Source Monitor Blood Pressure Position Semi-Fowlers Blood Pressure Location Left Arm Pulse Ox 97 97 Oxygen Delivery Method Room Air Room Air Weight Weight: 213 lb 13.574 oz Body Mass Index (BMI) 40.4 Physical Exam Const alert, oriented x3, no apparent distress and healthy appearing General Appearance: cooperative GI normal to inspection, nondistended, normoactive bowel sounds, soft to palpation, non-tender and non-distended Percussion: normal to percussion Rectal Exam: deferred Assessment & Plan Assessment/Plan (1) Globus sensation: (2) GERD (gastroesophageal reflux disease): QUALIFIERS: Esophagitis presence: esophagitis presence not specified Qualified Code(s): K21.9 - Gastro-esophageal reflux disease without esophagitis PLAN: Assessment and Plan Assessment and Plan (1) GERD (gastroesophageal reflux disease): Status: Chronic Qualifiers: Esophagitis presence: esophagitis presence not specified Qualified Code(s): K21.9 - Gastro-esophageal reflux disease without esophagitis (2) Globus sensation: Status: Acute Medications: New omeprazole 40 mg PO QDAY 30 caps 3RF Plan FELICIANO RUIZ, is a 60 F who presents to the office today for establishment with [facility] following [facility] ER visit on 04.07.25 for globus sensation. Differential diagnoses include: GERD, esophagitis, esophageal dysmotility, EoE. Discussed care plan with her. She voices concerns regarding watermaster use of acid- controlling medicines can cause cancer, she had read. Discussed possible side effects of chronic therapy with PPIs relating to bone density reduction, memory issues mainly, but also reviewed risks of developing esophageal cancer from untreated reflux by way of pathologic tissue mutations. She is agreeable to taking the PPI daily until esophageal tissue pathology can be obtained. She states that her last colonoscopy was more than 5 years ago, but less than 10, and that it does not need repeated yet. * omeprazole 40mg PO daily, 30minutes before eating * schedule EGD * elevate HoB * no meals 2-3hrs before bed * encourage frequent small meals * remain upright for at least 1hr after eating * office FU 2wks after EGD
--- NOTE | 2025-06-22 13:28 | OP.EGD_ITS ---
Patient Name: Do De Guzman Procedure Date: 06/22/2025 1:08 PM Date of : 1965 Age: 60 Procedure: Upper GI endoscopy Indications: Heartburn, Suspected esophageal reflux Providers: Jose Pacheco DO Referring MD: Uriel Lovelace Medicines: Monitored Anesthesia Care Patient Profile: This is a 60 year old female. Refer to note in patient chart for documentation of history and physical. Patient has symptoms of acute heartburn and acute nausea. Complications: No immediate complications. Procedure: Pre-Anesthesia Assessment: - Prior to the procedure, a History and Physical was performed, and patient medications and allergies were reviewed. The patient is competent. The risks and benefits of the procedure and the sedation options and risks were discussed with the patient. All questions were answered and informed consent was obtained. Patient identification and proposed procedure were verified by the physician in the pre-procedure area. Mental Status Examination: alert and oriented. Airway Examination: normal oropharyngeal airway and neck mobility. Respiratory Examination: clear to auscultation. CV Examination: normal. Prophylactic Antibiotics: The patient does not require prophylactic antibiotics. Prior Anticoagulants: The patient has taken no anticoagulant or antiplatelet agents except for NSAID medication. ASA Grade Assessment: II - A patient with mild systemic disease. After reviewing the risks and benefits, the patient was deemed in satisfactory condition to undergo the procedure. The anesthesia plan was to use monitored anesthesia care (MAC). Immediately prior to administration of medications, the patient was re-assessed for adequacy to receive sedatives. The heart rate, respiratory rate, oxygen saturations, blood pressure, adequacy of pulmonary ventilation, and response to care were monitored throughout the procedure. The physical status of the patient was re-assessed after the procedure. After obtaining informed consent, the endoscope was passed under direct vision. Throughout the procedure, the patient's blood pressure, pulse, and oxygen saturations were monitored continuously. The Endoscope was introduced through the mouth, and advanced to the second part of duodenum. The upper GI endoscopy was accomplished without difficulty. The patient tolerated the procedure well. Scope In: 1:19:34 PM Scope Out: 1:22:16 PM Total Procedure Duration Time 0 hours 2 minutes 42 seconds Findings: LA Grade A (one or more mucosal breaks less than 5 mm, not extending between tops of 2 mucosal folds) esophagitis with no bleeding was found 39 to 40 cm from the incisors. Biopsies were taken with a cold forceps for histology. Verification of patient identification for the specimen was done. Estimated blood loss was minimal. A medium-sized hiatal hernia was present. The entire examined stomach was normal. The examined duodenum was normal. Impression: - LA Grade A reflux esophagitis with no bleeding. Biopsied. - Medium-sized hiatal hernia. - Normal stomach. - Normal examined duodenum. Recommendation: - Discharge patient to home. - Resume previous diet. - Continue present medications. - Await pathology results. Procedure Code(s): --- Professional --- 31631, Esophagogastroduodenoscopy, flexible, transoral; with biopsy, single or multiple CPT copyright 2021 [employer] [place] [employer]. All rights reserved. The codes documented in this report are preliminary and upon immigration investigator review may be revised to meet current compliance requirements. Jose Pacheco DO 06/22/2025 1:27:43 PM This report has been signed electronically. Number of Addenda: 0 Note Initiated On: 06/22/2025 1:08 PM
--- NOTE | 2025-06-22 13:28 | OP.PROVAT_ITS ---
06/22/2025 Uriel Lovelace [address] [place] [address] Re : Upper GI endoscopy procedure for Do De Guzman Dear Dr. Lovelace This procedure was performed on Sunday, June 22, 2025. My impressions and recommendations are as follows: Impressions : - LA Grade A reflux esophagitis with no bleeding. Biopsied. - Medium-sized hiatal hernia. - Normal stomach. - Normal examined duodenum. Recommendations : - Discharge patient to home. - Resume previous diet. - Continue present medications. - Await pathology results. My findings are described in the full procedure note, which is enclosed. If I can be of further assistance, please feel free to contact me at . Sincerely, Jose Friend, 06/22/2025 1:27:43 PM This report has been signed electronically.
--- NOTE | 2025-06-22 13:31 | PCM.POST.ANE ---
Anesthesia: Postop Eval I Current Vital Signs Temperature: 97 F Pulse Rate: 82 Blood Pressure: 121/67 Respiratory Rate: 16 Pulse Ox: 96 Oxygen Delivery Method: Room Air Assessment Airway patent: Yes Spontaneous unlabored respirations: Yes Mental status: Awake and Calm nausea: No Vomiting: No Anesthesia Complication: No Fluid Hydration Crystalloid volume administer (ml): 300 Total IV fluid infused: 300 Progress Note Anesthesia document: Postop Eval 1 completed: Yes
--- OUTSIDE RECORDS SUMMARY | 2025-06-22 20:36 | XMS RPT_ITS | CCD ---
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 Uriel Lovelace DO Primary Care Provider [phone] Yosi Chaney MD Attending Provider [phone] Brooklynn Velasco DO Emergency Provider BRETT DONALDSON Attending Unavailable ISI LAWRENCE Attending Unavailable DEX SANTIAGO Referring Unavailable DEX SANTIAGO Attending Unavailable Dr. Brooklynn Velasco DO Attending Provider Dr. Uriel Lovelace DO Referring Provider Gerardo VILLALOBOS-Perla Wetzel Attending Provider [phone] Uriel Lovelace Primary Care Unavailable Yosi Chaney Attending Unavailable Uriel Lovelace Primary Care Unavailable Brooklynn Velasco Attending Unavailable Uriel Lovelace Primary Care Unavailable Uriel Lovelace Referring Unavailable Jose Pacheco Attending Unavailable Uriel Lovelace Primary Care Unavailable Uriel Lovelace Referring Unavailable Perla Carrillo Attending Unavailable Dr. Jose Pacheco DO Attending Provider Friend Dr. Jose MILLIGAN Other Provider [phone] Medications Current Medications Medication Drug Class(es) Dates [...] 325 mg by mouth daily with breakfast. omeprazole 40 mg delayed release oral capsule (2 sources) Proton Pump Inhibitor Start: 05-04-20 take 1 capsule by mouth once daily Omeprazole 40 mg capsule,delayed release(DR/EC) Active 40 mg PO daily 30 3 May 04, 2025 12:00am Semaglutide (Weight Loss) (2 sources) Start: 05-04-20 Semaglutide (Weight Loss) (Wegovy) 0.25 mg/0.5 mL pen injector Active 0.25 mg SC EVERY WEEK May 04, 2025 12:00am administer weeks 1 through 4 of therapy semaglutide, weight loss, (WEGOVY) 0.25 mg/0.5 mL pen injector (4 sources) Start: 06-19-20 inject 0.5 mL by subcutaneous injection every week semaglutide, weight loss, (WEGOVY) 0.25 mg/0.5 mL pen injector Indications: Sleep apnea-like behavior , Severe obesity (BMI >= 40) ([facility]) Inject 0.5 mL subcutaneously one time a week. 2 mL 2 06/19/2024 Active semaglutide, weight loss, (WEGOVY) 0.5 mg/0.5 mL pen injector (4 sources) Start: 06-19-20 inject 0.25 mg by subcutaneous injection every [...] on above: Take 1 capsule by mo uth once daily. Problems Active Problems Problem Classification Problem Date Documented Da te Episodic/Chronic Blindness and vision defects (2 sources) Eye / vision finding; Translations: [Unspecified visual disturbance] Onset: 5 04-18-2025 Episodic Deficiency and other anemia (1 source) Iron deficiency anemia; Translations: [Iron deficiency anemia, unspecified] Episodic Disorders of lipid metabolism (20 sources) Hypercholesterolemia; Translations: [Pure hypercholesterolemia, unspecified] Onset: 4 02-26-2014 Chronic Esophageal disorders (6 sources) Gastroesophageal reflux disease; Translations: [Gastro-esophageal reflux disease [...] of other specified body structures] Chronic Other screening for suspected conditions (not mental disorders or infectious disease) (5 sources) Thyroid function tests abnormal; Translations: [Abnormal results of thyroid function studies] Episodic Other skin disorders (1 source) Localized swelling, mass and lump, neck; Translations: [Localized swelling, mass and lump, neck] Onset: 5 Episodic Other upper respiratory disease (4 sources) Sensation of foreign body in throat; Translations: [Sensation of foreign body in throat] 04-07-2025 Episodic Other upper respiratory disease (3 sources) Feeling of lump in throat; Translations: [Globus sensation] 05-04-2025 Episodic Other upper respiratory infections (1 source) Nasal discharge; Translations: [Postnasal drip] Episodic Residual codes; unclassified (1 source) Behavior finding; Translations: [Other sleep apnea] 06-19-2024 Chronic Superficial injury; contusion (4 sources) Injury of conjunctiva; Translations: [Injury of conjunctiva and corneal abrasion without foreign body, right eye, initial encounter] Onset: 5 04-18-2025 Episodic Thyroid disorders (20 sources) Hyperthyroidism; Translations: [Thyrotoxicosis, unspecified without thyrotoxic crisis or storm] Onset: 2 Chronic Past or Other Problems Problem Classification Problem Date Documented Da te Episodic/Chronic Other connective tissue disease (20 sources) Heel pain; Translations: [Pain in unspecified foot] Onset: 02-26-2014 02-26-2014 Episodic Other gastrointestinal disorders (20 sources) Flatulence, eructation and gas pain; Translations: [Flatulence] Onset: 09-28-2008 09-28-2008 Episodic Results Test Name Value Interpretation Reference Range Facility Gastroenterology Visit Repor ton 05-04-2025 Gastroenterology Visit Report [facility] [address] [place] [address] OFFICE VISIT Date of Service: 05/04/25 MR#: [id number] Acct: [id number] Name: DO RUIZ Rep #: [id number] : 1965 Provider: GABI dleuca Age/Sex: 60/F Location: [facility] Status: Signed Intake Vital Signs 04/18/25 09:18 05/04/25 08:28 Height 5 ft 1 in 5 ft 1 in Weight: 225 lb 4 oz BMI 42.5 BP 113/79 Blood Pressure Location Lt brachial Position Sitting Pulse 74 Pulse Source Monitor Pulse Oximetry (%) 94 Oxygen Delivery Method room air Intake Visit Reasons: acid reflux - lump in throat Chief Complaint: ER f/u for lump in her throat Allergies No Known Allergies Allergy (Verified 04/18/25 09:18) Medications ???Medication ???Instructions ???Recorded ???Confirmed ???Type omeprazole 40 mg capsule,delayed 40 mg PO QDAY #30 caps 05/04/25 Rx release semaglutide (weight loss) 0.25 0.25 mg subcut QWEEK 05/04/2504/12 History mg/0.5 mL subcutaneous pen injector (Wegovy) Patient : No Nurse's Note: OV 05/04/25 Pt here to establish care with [facility]. Pt was in the ER 04/18/25. Pt reports feeling acid reflux. Pt was on omeprazole for 14 and found it helpful. Has been on a semaglutide since March 01. PFSH Social History Smoking Status: Never smoker HPI HPI Chief Complaint: ER f/u for lump in her throat Details: DO RUIZ, is a 60 F who presents to the office today for establishment with [facility] following [facility] ER visit on 04.07.25 for globus sensation. Per ER visit, 60-year-old female who denies significant past medical [...] go away. No exacerbating or alleviating factors. Her laboratory work has normal white count 6.8 with hemoglobin [...] Disposition is discharged home in stable condition. Today, she reports having taken omeprazole OTC for 2 weeks and states complete resolution of globus sensation, but her nausea, belching and HS reflux are returning. Prior to the omeprazole she reports having frequent cough, throat clearing, sinus drainage, and HS reflux so bad I'd wake up choking on it. She reports abdominal bloating if she can't relieve the gas pressure with a belch. Reports daily+ complete BM without straining. She denies difficulty chewing, emesis, abdominal pain, constipation, diarrhea, hematochezia, and melena. ROS Const Constitutional: No chills, fatigue, fever(s) or weight change Eyes Eyes: No change in vision ENT ENT: No abnormal hearing or difficulty swallowing Resp Respiratory: Positive for cough Cardio Cardiology: No chest pain at rest, chest pain with exertion or leg pain with exertion Gastro GI: Positive for abdominal pain, bloating, change in bowel habits, diarrhea, heartburn, excessive flatus and nausea/dyspepsia; No belching, change in stool character, coffee ground emesis, constipation, cramping, difficulty swallowing, feeling full early, incontinent of stools, Vomiting blood/hematemesis, Blood in stool, loose stools, Black,tarry stools, pain with swallowing, vomiting or other Musc Musculoskeletal: No joint pain or leg pain with exertion Skin Skin: No yellowing of the eye or itchy eyes Neuro Neurology: No abnormal hearing Psych Psychiatric: No anxiety and No depression Endo Endocrine: No fatigue or weight change Aller/Imm Allergy/Immunologic: No itchy eyes Dinesh/Lymp Hematologic/Lymphati c: No easy bleeding or easy bruising Exam C (more content not included)... [facility] DO RUIZ ([id number]) 1965 F Date Time Provider Department 04/18/25 8:45 AM BRETT DONALDSON [facility] During your visit today, we recorded the following information about you: Temperature Pulse Respiration Blood pressure 98.8 degrees 83/minute 18/minute 138/85 Weight 102.9 kg Brett Donaldson APRN.CNP 04/18/2025 9:23 AM Signed Patient came in with complaints of right eye discomfort. Patient says her cat scratched her in the eye yesterday. Patient says she is having cloudy vision in the eye. At this time patient is being referred to the emergency room due to vision changes. Patient agreeable and will take her self. Allergies As of Date: 04/18/2025 (No Known Allergies) Date Reviewed: 04/18/2025 Reviewed by: Mya Cerda MA - Fully Assessed Reason for Visit: Eye Problem [43] Cmt: R eye x1 day, cat scratched eye Primary Visit Diagnosis:Vision changes [H53.9] Prescriptions as of 04/18/2025 - semaglutide, weight loss, (WEGOVY) 0.25 mg/0.5 [...] 2 gummiesfdaily Problem List As Of Date 04/18/2025 Noted Resolved OBESITY NOS [E66.9] 09/28/2008 FLATUL/ERUCTAT/GAS PAIN [R14.3, R14.1, R14.2] 09/28/2008 Hypercholesteremia [E78.00] 02/26/2014 Obesity [E66.9] 02/26/2014 Heel pain [M79.673] 02/26/2014 Hyperthyroidism [E05.90] 04/25/2022 Multiple thyroid nodules [E04.2] 04/25/2022 Encounter Status:Closed by BRETT DONALDSON on 04/18/25 Normal [facility] Emergency Department Summary on 04-18-2025 Emergency Department Summary [facility] Medical Records Department [address] [place] [address] Emergency Department Summary 04/18/25 MR#: [id number] Acct: [id number] Name: DO RUIZ Rep #: [id number] : 1965 60 From: Brooklynn Velasco DO PCP: Dr. Uriel Lovelace DO Status:DEP ER Location: ED HPI History of Present Illness Chief Complaint: Eye Problem Detail of Chief Complaint: Right eye scratch Informant: patient Narrative Narrative: Patient presents to the emergency department with a cat scratch to her right eye that occurred last evening. Patient states that her cat accidentally scratched her right eye. She went to urgent care today and was referred to the ER. Patient denies any vision changes. She had some mild tearing. PFSH PFSH Allergy/AdvReac Type Severity Reaction Status Date / Time No Known Allergies Allergy Verified 04/18/25 09:18 Social History Smoking Status: Never smoker ROS ROS ED Review of Systems ROS Unobtainable: other Constitutional Constitutional ED: Reports lethargy; Denies chills, fever(s), sweats or weight loss Eyes Eyes: Reports other Details: Right eye injury ; Denies blurry vision, change in vision or diplopia ENT ENT ED: Denies rhinorrhea or sore throat Cardiovascular Cardiovascular: Denies chest pain, orthopnea or racing heartbeat Respiratory/Chest Respiratory/Chest: Denies cough, dyspnea, dyspnea on exertion, orthopnea or sputum Gastrointestinal Gastrointestinal: Denies abdominal pain, diarrhea, nausea or vomiting Genitourinary Genitourinary ED: Denies dysuria, hematuria or urinary frequency Musculoskeletal Musculoskeletal: Denies arthralgias, back pain, myalgias or neck pain Integumentary Denies abscess, Abrasions or rash Neurologic Neurologic: Denies headache(s) or weakness Psychiatric Psychiatric: Denies anxiety, depression or suicidal thoughts Endocrine Endocrinology: Denies polydipsia, polyphagia or polyuria Hematologic/Lymphati c Hematologic/Lymphati c: Denies easy bleeding, easy bruising or lymphadenopathy Allergic/Immunologic Allergic/Immunologic ED: Denies mouth swelling, tongue swelling or urticaria EXAM Physical Exam Const Vital Signs: 04/18/25 09:18 Temperature 98.4 F Temperature Source Oral Pulse Rate 81 Respiratory Rate 16 Blood Pressure 143/87 H Blood Pressure Mean 105 Pulse Ox 98 Oxygen Delivery Method Room Air Positive well nourished and well developed General Appearance ED: well developed and NAD HEENT Reports TM's clear and moist mucous membranes normocephalic and atraumatic; Negative for trauma or tenderness Tympanic Membrane ED: Yes TM's clear Eyes PERRL and EOMs intact bilaterally Eyes Narrative: Right eye-patient has some lateral conjunctival erythema/contusion. Pupils equal react light bilaterally. Extraocular muscle movement is normal. General Eye ED: Negative for pale conjunctiva or scleral icterus Neck no lymphadenopathy, supple and no JVD General: Negative for tenderness Chest Wall inspection of chest normal and palpation of chest normal Chest: Negative for tenderness Resp normal respiratory effort and clear to auscultation bilaterally Effort and Inspection: Negative for respiratory distress or pain with movement Auscultation: Negative for rhonchi, wheezes or diminished lung sounds Cardio regular rate, regular rhythm, S1 normal heart sound, S2 normal heart sound and no murmurs Peripheral Pulses: pulses 2+ throughout GI normal to inspection, nondistended, normoactive bowel sounds, soft to palpation, non-tender, non- distended and no masses Back/Spine no CVA tenderness and no thoracic nor lumbar tenderness Extremity normal to inspection General Extremety ED: Negative for edema General Extremity: Negative for edema Neuro oriented x3, CN's II-XII intact bilaterally, no sensory deficits noted and gait normal Sensorium / Orientation: awake, alert, oriented to person, oriented to place and oriented to time Motor Exam: strength 5/5 throughout and strength abnormal Psych mental status grossly normal Skin no rashes or lesions noted and no wounds MDM MDM MDM Narrative Medical decision making narrative: Patient presents with a scratch to the right eye that occurred last evening by her cat. She clinically looks well. I did use fluorescein stain the eye and there was no evidence of corneal abrasion. Minimal uptake over the lateral conjunctiva where the contusion is. Negative Eric sign. No foreign bodies noted underneath the eyelids. Patient will be started on Cipro eyedrops and referred to ophthalmology for follow-up. Discharge Plan Triage Chief Complaint: Eye Problem ED Provider: Brooklynn Velasco Dx/Rx/DC Orders Clinical Impression: Injury of right conjunctiva Instruction (more content not included)... Normal [facility] Absolute lymphocyte countOrd ered By: Yosi Chaney on 04-07-2025 Lymphocytes Auto (Unsp spec) [#/Vol] 0.97 10*3/uL 0.83-4.51 [facility] Absolute neutrophil countOrd ered By: Yosi Chaney on 04-07-2025 Neutrophils (Bld) [#/Vol] 5.1 10*3/uL 2.0-7.7 [facility] Anion gap in Serum or Plasma Ordered By: Yosi Chaney on 04-07-2025 Anion gap [Moles/Vol] 11 mmol/L 5- [facility] Automated lymphocyte count a s percentage of total leukocytesOrdered By: Yosi Chaney on 04-07-2025 Lymphocytes/100 WBC Auto (Unsp spec) 14.2 % Low 19-41 [facility] BUN/creatinine ratioOrdered By: Yosi Chaney on 04-07-2025 Urea nitrogen/Creatinine [Mass ratio] 15.3 mg/mg - [facility] Basic Metabolic Profile (BMP )on 04-07-2025 BUN/CRE 15.3 RATIO Normal - [facility] Comment on above: Performed By: #### L 100.0100, L500.2500 #### [facility] [address] [place], [address] Calcium [Mass/Vol] 9.5 mg/dL Normal 7.6-11.0 [facility] Comment on above: Performed By: #### L 100.0100, L500.2500 #### [facility] [address] [place], [address] Chloride [Moles/Vol] 105 mmol/L Normal 98-108 [facility] Comment on above: Performed By: #### L 100.0100, L500.2500 #### [facility] [address] [place], [address] CO2 [Moles/Vol] 24.9 mmol/L Normal 21.0-32.0 [facility] Comment on above: Performed By: #### L 100.0100, L500.2500 #### [facility] [address] [place], [address] Creatinine [Mass/Vol] 0.85 mg/dL Normal 0.70-1.20 [facility] Comment on above: Performed By: #### L 100.0100, L500.2500 #### [facility] [address] [place], [address] ECRCL 79.01 ml/min Normal 50-250 [facility] Comment on above: Performed By: #### L 100.0100, L500.2500 #### [facility] [address] [place], [address] GAP 11 Normal 5-15 [facility] Comment on above: Performed By: #### L 100.0100, L500.2500 #### [facility] [address] [place], [address] GFR/1.73 sq M.predicted among non-blacks MDRD (S/P/Bld) [Vol rate/Area] 79 mL/min/{1.73_m2} Normal >60 [facility] Comment on above: Result Comment: mL/m in/1.73m2 CKD-EPI Creatinine Equation (2020) Performed By: #### L 100.0100, L500.2500 #### [facility] [address] [place], [address] Glucose [Mass/Vol] 116 mg/dL High 70-99 [facility] Comment on above: Performed By: #### L 100.0100, L500.2500 #### [facility] [address] [place], [address] Potassium [Moles/Vol] 4.1 mmol/L Normal 3.3-5.1 [facility] Comment on above: Performed By: #### L 100.0100, L500.2500 #### [facility] [address] [place], [address] Sodium [Moles/Vol] 140 mmol/L Normal 133-145 [facility] Comment on above: Performed By: #### L 100.0100, L500.2500 #### [facility] [address] [place], [address] Urea nitrogen [Mass/Vol] 13 mg/dL Normal 4-19 [facility] Comment on above: Performed By: #### L 100.0100, L500.2500 #### [facility] [address] [place], [address] Basophil percentageOrdered B y: Yosi Chaney on 04-07-2025 Basophils/100 WBC (Bld) 0.6 % 0-1 [facility] CBC W/Diff, Automatedon 03-12 Absolute Lymph 0.97 X10 3/uL Normal 0.83-4.51 [facility] Comment on above: Performed By: #### L 100.0100, L500.2500 #### [facility] [address] [place], [address] Absolute Neut 5.1 X10 3/uL Normal 2.0-7.7 [facility] Comment on above: Performed By: #### L 100.0100, L500.2500 #### [facility] [address] [place], [address] Basophils/100 WBC (Bld) 0.6 % Normal 0-1 [facility] Comment on above: Performed By: #### L 100.0100, L500.2500 #### [facility] [address] [place], [address] Eosinophils/100 WBC (Bld) 2.5 % Normal 0-5 [facility] Comment on above: Performed By: #### L 100.0100, L500.2500 #### [facility] [address] [place], [address] Erythrocyte distribution width (RBC) [Ratio] 13.4 % Normal 11.6-14.6 [facility] Comment on above: Performed By: #### L 100.0100, L500.2500 #### [facility] [address] [place], [address] Hematocrit (Bld) [Volume fraction] 42.8 % Normal 37-47 [facility] Comment on above: Performed By: #### L 100.0100, L500.2500 #### [facility] [address] [place], [address] Hemoglobin (Bld) [Mass/Vol] 14.1 g/dL Normal 12.0-15.0 [facility] Comment on above: Performed By: #### L 100.0100, L500.2500 #### [facility] [address] [place], [address] IG% 0.300 Normal 0.0-0.9 [facility] Comment on above: Result Comment: IG% - Immature Granulocytes (promyelocytes, myelocytes and metamyelocytes) > 1% indicates that a LEFT SHIFT is Present. Performed By: #### L 100.0100, L500.2500 #### [facility] [address] [place], [address] Lymphocytes/100 WBC (Bld) 14.2 % Low 19-41 [facility] Comment on above: Performed By: #### L 100.0100, L500.2500 #### [facility] [address] [place], [address] MCH (RBC) [Entitic mass] 27.3 pg Normal 27.0-32.0 [facility] Comment on above: Performed By: #### L 100.0100, L500.2500 #### [facility] [address] [place], [address] MCHC (RBC) [Mass/Vol] 32.9 g/dL Normal 32-36 [facility] Comment on above: Performed By: #### L 100.0100, L500.2500 #### [facility] [address] [place], [address] MCV (RBC) [Entitic vol] 82.9 fL Normal 81-99 [facility] Comment on above: Performed By: #### L 100.0100, L500.2500 #### [facility] [address] [place], [address] Monocytes/100 WBC (Bld) 7.3 % Normal 0-10 [facility] Comment on above: Performed By: #### L 100.0100, L500.2500 #### [facility] [address] [place], [address] Neutrophils/100 WBC (Bld) 75.1 % High 47-70 [facility] Comment on above: Performed By: #### L 100.0100, L500.2500 #### [facility] [address] [place], [address] Nucleated RBC (Bld) [#/Vol] 0 10*3/uL Normal 0-5 [facility] Comment on above: Performed By: #### L 100.0100, L500.2500 #### [facility] [address] [place], [address] Platelet mean volume (Bld) [Entitic vol] 10.3 fL Normal 6.2-12.0 [facility] Comment on above: Performed By: #### L 100.0100, L500.2500 #### [facility] [address] [place], [address] Platelets (Bld) [#/Vol] 281 10*3/uL Normal 150-450 [facility] Comment on above: Performed By: #### L 100.0100, L500.2500 #### [facility] [address] [place], [address] RBC (Bld) [#/Vol] 5.16 10*6/uL Normal 4.2-5.4 [facility] Comment on above: Performed By: #### L 100.0100, L500.2500 #### [facility] [address] [place], [address] RDW SD 39.9 fl Normal 35.1-43.9 [facility] Comment on above: Performed By: #### L 100.0100, L500.2500 #### [facility] [address] [place], [address] WBC (Bld) [#/Vol] 6.8 10*3/uL Normal 4.4-11.0 [facility] Comment on above: Performed By: #### L 100.0100, L500.2500 #### [facility] [address] [place], [address] Carbon dioxide, total [Moles /volume] in Central venous bloodOrdered By: Yosi Chaney on 04-07-2025 CO2 [Moles/Vol] 24.9 mmol/L 21.0-32.0 [facility] Chloride assayOrdered By: Corby Chaney on 04-07-2025 Chloride [Moles/Vol] 105 mmol/L 98-108 [facility] Emergency Department Summary on 04-07-2025 Emergency Department Summary [facility] Medical Records Department [address] [place] [address] Emergency Department Summary 04/07/25 MR#: [id number] Acct: [id number] Name: DO RUIZ Rep #: [id number] : 1965 60 From: Yosi Chaney MD [...] 75.1 H Lymph % (Auto) 14.2 L Placer % (Auto) 7.3 Eos % (Auto) 2.5 [...] SOFT TISSUES OF THE NECK. Reading Location: [place] [address] Discharge Plan Triage Chief Complaint: Foreign Body ED (more content not included)... Normal [facility] Eosinophil percentageOrdered By: Yosi Chaney on 04-07-2025 Eosinophils/100 WBC (Bld) 2.5 % 0-5 [facility] Erythrocyte distribution wid th ratioOrdered By: Yosi Chaney on 04-07-2025 Erythrocyte distribution width (RBC) [Ratio] 13.4 % 11.6-14.6 [facility] Erythrocyte distribution wid th standard deviationOrdered By: Yosi Chaney on 04-07-2025 Erythrocyte distribution width (RBC) [Ratio] 39.9 fl 35.1-43.9 [facility] Glomerular filtration rate ( GFR) estimation/1.73 sq m using serum, plasma, or whole bOrdered By: Yosi Chaney on 04-07-2025 GFR/1.73 sq M.predicted among non-blacks MDRD (S/P/Bld) [Vol rate/Area] 79 mL/min/{1.73_m2} >60 [facility] Comment on above: mL/min/1.73m2 CKD-EP I Creatinine Equation (2020) Hematocrit Auto (Bld) [Volum e fraction]Ordered By: Yosi Chaney on 04-07-2025 Hematocrit (Bld) [Volume fraction] 42.8 % 37-47 [facility] Hemoglobin measurementOrdere d By: Yosi Chaney on 04-07-2025 Hemoglobin (Bld) [Mass/Vol] 14.1 g/dL 12.0-15.0 [facility] Immature granulocytes/100 WB C Auto (Bld)Ordered By: Yosi Chaney on 04-07-2025 Immature granulocytes/100 WBC (Bld) 0.300 % 0.0-0.9 [facility] Comment on above: IG% - Immature Granu locytes (promyelocytes, myelocytes and metamyelocytes) > 1% indicates that a LEFT SHIFT is Present. MCV (mean corpuscular volume ) determinationOrdered By: Yosi Chaney on 04-07-2025 MCV (RBC) [Entitic vol] 82.9 fL 81-99 [facility] Mean corpuscular hemoglobin (MCH) determinationOrdered By: Yosi Chaney on 04-07-2025 MCH (RBC) [Entitic mass] 27.3 pg 27.0-32.0 [facility] Mean corpuscular hemoglobin concentration (MCHC) determinationOrdered By: Yosi Chaney on 04-07-2025 MCHC (RBC) [Mass/Vol] 32.9 g/dL 32-36 [facility] Mean platelet volume determi nationOrdered By: Yosi Chaney on 04-07-2025 Platelet mean volume (Bld) [Entitic vol] 10.3 fL 6.2-12.0 [facility] Monocyte percentageOrdered B y: Yosi Chaney on 04-07-2025 Monocytes/100 WBC (Bld) 7.3 % 0-10 [facility] Neutrophil percentageOrdered By: Yosi Chaney on 04-07-2025 Neutrophils/100 WBC (Bld) 75.1 % High 47-70 [facility] Nucleated red blood cell per centageOrdered By: Yosi Chaney on 04-07-2025 Nucleated RBC/100 WBC (Bld) [Ratio] 0 % 0-5 [facility] Platelet countOrdered By: Corby Chaney on 04-07-2025 Platelets (Bld) [#/Vol] 281 10*3/uL 150-450 [facility] Potassium measurement (mass/ volume)Ordered By: Yosi Chaney on 04-07-2025 Potassium (Unsp spec) [Mass/Vol] 4.1 mmol/L 3.3-5.1 [facility] RBC Auto (Bld) [#/Vol]Ordere d By: Yosi Chaney on 04-07-2025 RBC (Bld) [#/Vol] 5.16 10*6/uL 4.2-5.4 [facility] Serum creatinine measurement (mass/volume)Ordered By: Yosi Chaney on 04-07-2025 Creatinine [Mass/Vol] 0.85 mg/dL 0.70-1.20 [facility] Serum glucose measurement (m ass/volume)Ordered By: Yosi Chaney on 04-07-2025 Glucose [Mass/Vol] 116 mg/dL High 70-99 [facility] Serum or plasma calcium marcela urement (mass/volume)Ordered By: Yosi Chaney on 04-07-2025 Calcium [Mass/Vol] 9.5 mg/dL 7.6-11.0 [facility] Serum or plasma urea nitroge n measurement (mass/volume)Ordered By: Yosi Chaney on 04-07-2025 Urea nitrogen [Mass/Vol] 13 mg/dL 4-19 [facility] Sodium levelOrdered By: Yosi Chaney on 04-07-2025 Sodium [Moles/Vol] 140 mmol/L 133-145 [facility] Soft Tissue Neck WITH Contra ston 04-07-2025 Soft Tissue Neck WITH Contrast [facility] Imaging Services [address] [place], [place] [id number] Soft Tissue Neck WITH Contrast MR#: [id number] Acct: [id number] Name: SARADO Rep #: [id number] : 1965 F 60 From: Cheikh martell MD PCP: Dr. Uriel Lovelace DO Status: REG ER Study: Soft Tissue Neck WITH Contrast Date of Exam: 0 04/07/25 Exam# [id number] Ordering Dr: Yosi Chaney MD PROCEDURE: SOFT [...] SOFT TISSUES OF THE NECK. Reading Location: [place] [address] CC: Dr. Yosi Chaney MD; Dr. Uriel Lovelace DO Specialties Operator: Signed Normal [facility] White blood cell (WBC) count Ordered By: Yosi Chaney on 04-07-2025 WBC (Bld) [#/Vol] 6.8 10*3/uL 4.4-11.0 [facility] 08-18-2024 [facility] Telephone (EM) DO RUIZ ([id number]) 1965 F Date Time Provider Department 08/18/24 ISI LAWRENCE During your visit today, we recorded the following information about you: MiguelMerced hickman 08/18/2024 5:24 PM Signed Lvm for pt [...] Status:Closed by MERCED RIVERA on 08/18/24 Normal [facility] US THYROID/PARATHYROIDon US THYROID/PARATHYROID * * *Final Report * * * DATE OF EXAM: Oct 22 2022 9:00AM TAYLOR 1048 - US THYROID/PARATHYROID / PROCEDURE REASON: [...] be performed in one year if desired. Specialties Operator: LINDA Transcribe Date/Time: Oct 22 2022 12:15P Dictated by : RD PEDERSON MD This examination was interpreted and the report reviewed and electronically signed by: RD PEDERSON MD on Oct 22 2022 1:13PM EST [id number] CN Normal [facility] US THYROID/PARATHYROID (POC) ENDO USE ONLYon 09-18-[address] [facility] PEMA SCREENINGon 05-31-[address] [facility] US THYROID/PARATHYROIDon [facility] Vital Signs Date Time Vital Sign Value Performing Clinician Rosa M marsh 06-22-2025 13:38-0400 Body temperature 98.2 [degF] Yosi hCaney MD Work Phone: [facility] 06-22-2025 13:38-0400 Diastolic blood pressure 57 mm[Hg] Yosi Chaney MD Work Phone: 0(498)351-099146 [place] [address] 06-22-2025 13:38-0400 Heart rate 79 /min Yosi Chaney MD Work Phone: 7(444)970-923646 [place] [address] 06-22-2025 13:38-0400 Respiratory rate 16 /min Yosi Chaney MD Work Phone: 9(920)160-509858 [place] [address] 06-22-2025 13:38-0400 SaO2% (BldA) [Mass fraction] 95 % Yosi Chaney MD Work Phone: 3(332)828-263646 [place] [address] 06-22-2025 13:38-0400 Systolic blood pressure 95 mm[Hg] Yosi Chaney MD Work Phone: 0(844)855-763158 [place] [address] 06-22-2025 12:15-0400 Body height 154.94 cm Yosi Chaney MD Work Phone: 5(599)085-515958 [place] [address] 06-22-2025 12:15-0400 Body mass index (BMI) [Ratio] 40.4 kg/m2 Yosi Chaney MD Work Phone: 6(715)656-037458 [place] [address] 06-22-2025 12:15-0400 Body weight 97 kg Yosi Chaney MD Work Phone: 4(395)766-435558 [place] [address] 05-04-2025 08:28-0400 Body height 154.94 cm Yosi Chaney MD Work Phone: 7(970)758-521158 [place] [address] 05-04-2025 08:28-0400 Body mass index (BMI) [Ratio] 42.5 kg/m2 Yosi Chaney MD Work Phone: 4(243)530-252546 [place] [address] 05-04-2025 08:28-0400 Body weight 102.17 kg Yosi Chaney MD Work Phone: 0(950)713-261958 [place] [address] 05-04-2025 08:28-0400 Diastolic blood pressure 79 mm[Hg] Yosi Chaney MD Work Phone: 3(707)600-816058 [place] [address] 05-04-2025 08:28-0400 Heart rate 74 /min Yosi Chaney MD Work Phone: 2(135)593-279158 [place] [address] 05-04-2025 08:28-0400 SaO2% (BldA) [Mass fraction] 94 % Yosi Chaney MD Work Phone: [facility] 05-04-2025 08:28-0400 Systolic blood pressure 113 mm[Hg] Yosi Chaney MD Work Phone: 1(468)235-635246 [place] [address] 04-18-2025 09:18-0400 Body height 154.94 cm Yosi Chaney MD Work Phone: 9(152)844-622346 [place] [address] 04-18-2025 09:18-0400 Body mass index (BMI) [Ratio] 43.2 kg/m2 Yosi Chaney MD Work Phone: 7(537)740-672640 [address] 04-18-2025 09:18-0400 Body temperature 98.4 [degF] Yosi Chaney MD Work Phone: 2(256)036-565458 [place] [address] 04-18-2025 09:18-0400 Body weight 103.87 kg Yosi Chaney MD Work Phone: 3(305)579-625840 [address] 04-18-2025 09:18-0400 Diastolic blood pressure 87 mm[Hg] Yosi Chaney MD Work Phone: 4(780)831-150846 [place] [address] 04-18-2025 09:18-0400 Heart rate 81 /min Yosi Chaney MD Work Phone: 9(234)053-320446 [place] [address] 04-18-2025 09:18-0400 Respiratory rate 16 /min Yosi Chaney MD Work Phone: 9(897)378-483246 [place] [address] 04-18-2025 09:18-0400 SaO2% (BldA) [Mass fraction] 98 % Yosi Chaney MD Work Phone: 7(077)694-572046 [place] [address] 04-18-2025 09:18-0400 Systolic blood pressure 143 mm[Hg] Yosi Chaney MD Work Phone: [facility] 04-18-2025 08:50-0400 Body mass index (BMI) [Ratio] 42.86 kg/m2 Brett Donaldson APRN.CNP Work Phone: [facility] 04-18-2025 08:50-0400 Body temperature 98.8 [degF] Brett Donaldson APRN.SENIOR MAINTENANCE MACHINIST Work Phone: [facility] 04-18-2025 08:50-0400 Body weight 102.9 kg Brett Donaldson APRN.SENIOR MAINTENANCE MACHINIST Work Phone: [facility] 04-18-2025 08:50-0400 Diastolic blood pressure 85 mm[Hg] Brett Donaldson APRN.SENIOR MAINTENANCE MACHINIST Work Phone: [facility] 04-18-2025 08:50-0400 Heart rate 83 /min Brett Donaldson APRN.SENIOR MAINTENANCE MACHINIST Work Phone: [facility] 04-18-2025 08:50-0400 Respiratory rate 18 /min Brett Donaldson APRN.SENIOR MAINTENANCE MACHINIST Work Phone: [facility] 04-18-2025 08:50-0400 SaO2% (BldA) [Mass fraction] 96 % Brett Donaldson APRN.SENIOR MAINTENANCE MACHINIST Work Phone: [facility] 04-18-2025 08:50-0400 Systolic blood pressure 138 mm[Hg] Brett Donaldson APRN.SENIOR MAINTENANCE MACHINIST Work Phone: [facility] 04-07-2025 10:00-0400 Body temperature 97.9 [degF] Yosi Chaney MD Work Phone: [facility] 04-07-2025 10:00-0400 Diastolic blood pressure 74 mm[Hg] Yosi Chaney MD Work Phone: [facility] 04-07-2025 10:00-0400 Heart rate 83 /min Yosi Chaney MD Work Phone: [facility] 04-07-2025 10:00-0400 Respiratory rate 16 /min Yosi Chaney MD Work Phone: [facility] 04-07-2025 10:00-0400 SaO2% (BldA) [Mass fraction] 96 % Yosi Chaney MD Work Phone: [facility] 04-07-2025 10:00-0400 Systolic blood pressure 128 mm[Hg] Yosi Chaney MD Work Phone: [facility] 04-07-2025 07:31-0400 Body height 154.94 cm Yosi Chaney MD Work Phone: [facility] 04-07-2025 07:31-0400 Body mass index (BMI) [Ratio] 43.2 kg/m2 Yosi Chaney MD Work Phone: [facility] 04-07-2025 07:31-0400 Body weight 103.87 kg Yosi Chaney MD Work Phone: [facility] 06-19-2024 09:06-0400 Body mass index (BMI) [Ratio] 43.23 kg/m2 Isi Lawrence MD Work Phone: [facility] 06-19-2024 09:06-0400 Body weight 103.78 kg Isi Lawrence MD Work Phone: [facility] 01-30-2023 10:00-0400 Body height 154.9 cm Dex Santiago MD Work Phone: [facility] 01-30-2023 10:00-0400 Body weight 96.62 kg Dxe Santiago MD Work Phone: [facility] 01-30-2023 10:00-0400 Diastolic blood pressure 86 mm[Hg] Dex Santiago MD Work Phone: [facility] 01-30-2023 10:00-0400 Heart rate 84 /min Dex Santiago MD Work Phone: [facility] 01-30-2023 10:00-0400 SaO2% (BldA) [Mass fraction] 100 % Dex Santiago MD Work Phone: [facility] 01-30-2023 10:00-0400 Systolic blood pressure 129 mm[Hg] Dex Satniago MD Work Phone: [facility] 09-18-2022 09:12-0500 Body height 155.4 cm Denita López MD Work Phone: [facility] 09-18-2022 09:12-0500 Body weight 88.45 kg Denita López MD Work Phone: [facility] 09-18-2022 09:12-0500 Diastolic blood pressure 79 mm[Hg] Denita López MD Work Phone: [facility] 09-18-2022 09:12-0500 Heart rate 66 /min Denita López MD Work Phone: [facility] 09-18-2022 09:12-0500 Respiratory rate 16 /min Denita López MD Work Phone: [facility] 09-18-2022 09:12-0500 SaO2% (BldA) [Mass fraction] 100 % Denita López MD Work Phone: [facility] 09-18-2022 09:12-0500 Systolic blood pressure 114 mm[Hg] Denita López MD Work Phone: [facility] 07-31-2022 10:37-0400 Body height 155.4 cm Dex Santiago MD Work Phone: [facility] 07-31-2022 10:37-0400 Body weight 85.28 kg Dex Santiago MD Work Phone: [facility] 07-31-2022 10:37-0400 Diastolic blood pressure 76 mm[Hg] Dex Santiago MD Work Phone: [facility] 07-31-2022 10:37-0400 Heart rate 68 /min Dex Santiago MD Work Phone: [facility] 07-31-2022 10:37-0400 SaO2% (BldA) [Mass fraction] 98 % Dex Santiago MD Work Phone: [facility] 07-31-2022 10:37-0400 Systolic blood pressure 107 mm[Hg] Dex Santiago MD Work Phone: [facility] 04-25-2022 15:10-0400 Body height 154.9 cm Dex Santiago MD Work Phone: [facility] 04-25-2022 15:10-0400 Body weight 86 kg Dex Santiago MD Work Phone: [facility] 04-25-2022 15:10-0400 Diastolic blood pressure 73 mm[Hg] Dex Santiago MD Work Phone: [facility] 04-25-2022 15:10-0400 Heart rate 94 /min Dex Santiago MD Work Phone: [facility] 04-25-2022 15:10-0400 SaO2% (BldA) [Mass fraction] 98 % Dex Santiago MD Work Phone: [facility] 04-25-2022 15:10-0400 Systolic blood pressure 120 mm[Hg] Dex Santiago MD Work Phone: [facility] 04-16-2022 13:33-0400 Body temperature 98.2 [degF] Rachel Lau MD Work Phone: [facility] 04-16-2022 13:33-0400 Body weight 86.82 kg Rachel Lau MD Work Phone: [facility] 04-16-2022 13:33-0400 Diastolic blood pressure 72 mm[Hg] Rachel Lau MD Work Phone: [facility] 04-16-2022 13:33-0400 Heart rate 90 /min Rachel Lau MD Work Phone: [facility] 04-16-2022 13:33-0400 SaO2% (BldA) [Mass fraction] 98 % Rachel Lau MD Work Phone: [facility] 04-16-2022 13:33-0400 Systolic blood pressure 118 mm[Hg] Rachel Lau MD Work Phone: [facility] 04-02-2022 10:05-0400 Body height 155 cm Lucille Callahan APRN.CNP Work Phone: [facility] 04-02-2022 10:05-0400 Body weight 87.56 kg Lucille Zurawick SANITATION ASSOCIATE.SENIOR MAINTENANCE MACHINIST Work Phone: [facility] 04-02-2022 10:05-0400 Diastolic blood pressure 64 mm[Hg] Lucille Zurawick SANITATION ASSOCIATE.SENIOR MAINTENANCE MACHINIST Work Phone: [facility] 04-02-2022 10:05-0400 Heart rate 64 /min Lucille Zurawick SANITATION ASSOCIATE.SENIOR MAINTENANCE MACHINIST Work Phone: [facility] 04-02-2022 10:05-0400 Respiratory rate 16 /min Lucille Zurawick SANITATION ASSOCIATE.SENIOR MAINTENANCE MACHINIST Work Phone: [facility] 04-02-2022 10:05-0400 Systolic blood pressure 120 mm[Hg] Lucille Zurawick SANITATION ASSOCIATE.SENIOR MAINTENANCE MACHINIST Work Phone: [facility] Encounters Encounter Date Encounter Type Care Provider Facility Start: 06-22-2025 Non-patient / Non-visit Jose Urena nd DO -[facility] Start: 06-22-2025 ambulatory Uriel Valentin y:[facility] Start: 06-22-2025 End: 06-22-2025 Admission to same day surgery center Jose Pacheco DO -Endoscopy Work Phone: Start: 06-22-2025 End: 06-22-2025 ambulatory Yosi Chaney MD Work Phone: -Endoscopy Start: 05-04-2025 End: 05-04-2025 Patient encounter procedure Perla ASHLEY -[facility] Work Phone: Start: 05-04-2025 End: 05-04-2025 ambulatory Yosi Chaney MD Work Phone: [facility] Work Phone: Start: 04-18-2025 End: 04-18-2025 Emergency department patient visit Yosi Chaney MD Work Phone: -Emergency Department Work Phone: Start: 04-18-2025 End: 04-18-2025 Patient encounter procedure Brett Donaldson KENNA Work Phone: [facility] Comment on above: Vision changes (Prim ronnell Dx) Start: 04-18-2025 End: 04-18-2025 ambulatory BRETT JAMES Facility:[facility] Start: 04-07-2025 End: 04-07-2025 Emergency department patient visit Yosi Chaney MD Work Phone: -Emergency Department Work Phone: Start: 08-18-2024 End: 08-18-2024 Telephone encounter Isi Lawrence MD Work Phone: [facility] [place] Comment on above: Appointment Start: 06-29-2024 End: 06-29-2024 ambulatory Isi Lawrence MD Work Phone: [facility] Comment on above: Prescription Start: 06-19-2024 End: 06-19-2024 ambulatory Isi Lawrence MD Work Phone: [facility] Comment on above: Severe obesity (BMI >= 40) (HCC) (Primary Dx); Sleep apnea-like behavior; Insulin resistance; Dyslipidemia Start: 06-19-2024 End: 06-19-2024 Telemedicine consultation with patient Isi Lawrence MD Work Phone: [facility] Start: 04-20-2024 End: 04-20-2024 ambulatory Dex Santiago MD Work Phone: Endocrinology Comment on above: Abnormal results of thyroid function studies (Primary Dx); Multiple thyroid nodules; Class 3 severe obesity with body mass index (BMI) of 40.0 to 44.9 in adult, unspecified obesity type, unspecified whether serious comorbidity present (HCC) Start: 04-20-2024 End: 04-20-2024 Telemedicine consultation with patient Dex Santiago MD Work Phone: Endocrinology Start: 04-06-2024 ambulatory Dex Santiago MD Work Phone: Endocrinology Start: 04-06-2024 Follow-up encounter Dex Holloway i, MD Work Phone: Endocrinology Comment on above: 6 month follow up bl ood test Start: 01-30-2023 End: 01-30-2023 Patient encounter procedure Dex Santiago MD Work Phone: Endocrinology Comment on above: Multiple thyroid nod ules (Primary Dx); Abnormal results of thyroid function studies Start: 01-12-2023 Orders Only Dex Santiago MD Work Phone: Endocrinology Comment on above: Abnormal results of thyroid function studies (Primary Dx) Start: 01-07-2023 Telephone encounter Dex Holloway i, MD Work Phone: Endocrinology Comment on above: Patient Question (La bs and Upcoming Appt) Start: 10-22-2022 ambulatory UNKNOWN PROVIDER Facili ty:[facility] Start: 10-22-2022 End: 10-22-2022 Subsequent hospital visit by physician Rd Pederson MD Work Phone: [facility] Radiology Comment on above: Thyroid nodule [E04. 1] Start: 09-25-2022 Orders Only Dex Santiago MD Work Phone: Endocrinology Comment on above: Multiple thyroid nod ules (Primary Dx) Thyroid nodule (Prim ronnell Dx) Start: 09-19-2022 Telephone encounter Denita López MD Work Phone: Endocrinology Comment on above: Results Start: 09-18-2022 End: 09-18-2022 Patient encounter procedure Denita López MD Work Phone: Endocrinology Comment on above: Multiple thyroid nod ules (Primary Dx) Start: 07-31-2022 End: 07-31-2022 Patient encounter procedure Dex Santiago MD Work Phone: Endocrinology Comment on above: Multiple thyroid nod ules (Primary Dx); Abnormal results of thyroid function studies Start: 06-13-2022 Orders Only Dex Santiago MD Work Phone: Endocrinology Comment on above: Hyperthyroidism (Rosie isabela Dx) Start: 05-31-2022 Documentation procedure Mammog marixa Coordinator [facility] Start: 05-31-2022 Letter encounter Mammography Coordinator [facility] Start: 05-31-2022 End: 05-31-2022 Patient encounter status Screen Wstr Mammogram Start: 05-31-2022 End: 05-31-2022 Subsequent hospital visit by physician Screen Mammo [facility] W[facility] Mammogram Comment on above: Wellness examination [Z00.00] Start: 05-29-2022 Orders Only Dex Santiago MD Work Phone: Endocrinology Start: 05-28-2022 End: 05-28-2022 Subsequent hospital visit by physician [facility] Start: 05-28-2022 End: 05-28-2022 Subsequent hospital visit by physician [facility] Comment on above: Hyperthyroidism [E05 .90] Start: 05-09-2022 Telephone encounter Taryn Samuel (Pss) [facility] Comment on above: Nm Pet Request Hyperthyroidism (Rosie isabela Dx); Multiple thyroid nodules Start: 05-07-2022 Orders Only Dex Santiago MD Work Phone: Endocrinology Comment on above: Hyperthyroidism (Rosie isabela Dx) THYROID NON ENDO-MD Start: 05-05-2022 Orders Only Dex Santiago MD Work Phone: Endocrinology Comment on above: Hyperthyroidism (Rosie isabela Dx) Start: 04-25-2022 End: 04-25-2022 Patient encounter procedure Dex Santiago MD Work Phone: Endocrinology Comment on above: Multiple thyroid nod ules (Primary Dx); Hyperthyroidism Start: 04-16-2022 End: 04-16-2022 Patient encounter procedure Rachel Lau MD Work Phone: General Surgery Comment on above: Abnormal ultrasound of thyroid gland (Primary Dx); Hyperthyroid Start: 04-12-2022 End: 04-12-2022 Subsequent hospital visit by physician Us [facility] Wstr Mob 2 Work Phone: Radiology Comment on above: Hyperthyroidism [E05 .90] Start: 04-04-2022 Telephone encounter Lucille mayo APRN.SENIOR MAINTENANCE MACHINIST Work Phone: [facility] Comment on above: Results Start: 04-02-2022 End: 04-02-2022 Patient encounter procedure Lucille Callahan APRN.SENIOR MAINTENANCE MACHINIST Work Phone: [facility] Comment on above: Wellness examination (Primary Dx); Fatigue, unspecified type; Post-nasal drainage; Obesity, Class II, BMI 35-39.9; Dysphagia, unspecified type Start: 04-02-2022 End: 04-02-2022 Patient encounter status Lucille London HOFFMAN.SENIOR MAINTENANCE MACHINIST Work Phone: [facility] Start: 03-07-2022 Distance Health (Vis it Summary) Pete San [facility] Comment on above: Acute sinusitis, uns pecified Start: 03-07-2022 External Contact [place] [facility] Jaswinder EXTERNAL-NON [facility] Start: 02-03-2021 End: 02-03-2021 [facility]charged [facility] Procedures Date Procedure Procedure Detail Performing Clinician Start: 06-22-2025 Esophagogastroduodenoscopy Yosi Chaney MD Work Phone: Start: 04-07-2025 Estimated creatinine clearance Yosi odonnell MD Work Phone: Start: 04-07-2025 CT of soft tissues of neck with contrast Yosi Chaney MD Work Phone: Start: 09-18-2022 Us soft tissue head & neck real time imge docm Denita López MD Work Phone: Start: 05-31-2022 End: 05-31-2022 Screening mammography bi 2-view breast inc cad Lucille Callahan APRN.SENIOR MAINTENANCE MACHINIST Work Phone: Start: 04-12-2022 Us soft tissue head & neck real time imge doceugenia Callahan APRN.SENIOR MAINTENANCE MACHINIST Work Phone: Start: 04-04-2022 Lipid 1996 panel - Serum or Plasma Dex Santiago MD Work Phone: Start: 04-02-2022 Adult depression screening assessment Lucille Callahan APRN.SENIOR MAINTENANCE MACHINIST Work Phone: Start: 05-26-2020 Mammography [place] Provider Start: 04-13-2020 Colonoscopy [place] Provider Plan of Treatment Date Care Activity Detail Author Start: 04-18-2035 Urine microalbumin profile DTaP,Tdap,Td Vaccine (2 - Td or Tdap) [facility] Start: 04-13-2030 Colonoscopy [address] [facility] Start: 04-13-2030 COLORECTAL CANCER SCREENING COLORECTAL CANCER SCREENING [facility] Start: 04-13-2030 Screening for malignant neoplasm of colon [facility] Start: 04-04-2027 Lipid panel Lipid Screening [facility] Start: 04-04-2027 LIPID SCREEN LIPID SCREEN [facility] Start: 07-12-2025 Influenza vaccination Influenza Vaccine (Season Ended) [facility] Start: 06-22-2025 Patient discharge [facility] Start: 04-07-2025 [facility] Start: 04-04-2025 DIABETES SCREEN DIABETES SCREEN [facility] Start: 04-04-2025 Diabetes Screening Diabetes Screening [facility] Start: 07-12-2024 Covid-19 Vaccine ( season) Covid-19 Vaccine ( season) [facility] Start: 07-12-2024 Influenza vaccination [facility] Start: 04-20-2024 End: 04-20-2024 Follow-up encounter 04/20/2024 9:20 AM EDT [facility] Endocr[facility]ology [address] [id number] Dex Santiago MD [address] [place] [address] followup Endocrinology Comment on above: followup Start: 04-07-2024 End: 07-07-2024 Thyrotropin [Units/volume] in Serum or Plasma THYROID STIMULATING HORMONE Lab Routine Abnormal results of thyroid function studies Expected: 04/07/2024, Expires: 07/07/2024 [facility] Work Phone: Comment on above: Expected: 04/07/2024, Expires: Start: 04-07-2024 End: 07-07-2024 Thyroxine (T4) free [Mass/volume] in Serum or Plasma T4 FREE/FREE THYROXINE Lab Routine Abnormal results of thyroid function studies Expected: 04/07/2024, Expires: 07/07/[address] [facility] Comment on above: Expected: 04/07/2024, Expires: Start: 04-07-2024 End: 07-07-2024 Triiodothyronine (T3) [Mass/volume] in Serum or Plasma T3 Lab Routine Hyperthyroidism Expected: 04/07/2024, Expires: 07/07/[address] [facility] Comment on above: Expected: 04/07/2024, Expires: Start: 11-11-2023 Behavioral Health Screening Behavioral Health Screening [facility] Start: 08-02-2023 End: 10-02-2023 Thyrotropin [Units/volume] in Serum or Plasma TSH BLD Lab Routine Multiple thyroid nodules Abnormal results of thyroid function studies Expected: 08/02/2023 (Approximate), Expires: 10/02/2023 [facility] Work Phone: Comment on above: Expected: 08/02/2023 (Approximate), Expi res: 10/02/2023 Start: 08-02-2023 End: 10-02-2023 Thyroxine (T4) free [Mass/volume] in Serum or Plasma T4 FREE/FREE THYROX Lab Routine Multiple thyroid nodules Abnormal results of thyroid function studies Expected: 08/02/2023 (Approximate), Expires: 10/02/2023 [facility] Work Phone: Comment on above: Expected: 08/02/2023 (Approximate), Expi res: 10/02/2023 Start: 07-12-2023 Covid-19 Vaccine () Covid-19 Vaccine () [facility] Start: 05-31-2023 Mammography [address] [facility] Start: 05-31-2023 Screening for malignant neoplasm of breast Mammogram Screening [facility] Start: 04-02-2023 Adult depression screening assessment DEPRESSION SCREENING [facility] Start: 04-02-2023 ANNUAL PCP TEAM CHRONIC DISEASE VISIT ANNUAL PCP TEAM CHRONIC DISEASE VISIT [facility] Start: 04-02-2023 HEPATITIS C SCREENING HEPATITIS C SCREENING [facility] Comment on above: Postponed from 1984 (Declined at t his time) Start: 04-02-2023 HIV SCREENING HIV SCREENING [facility] Comment on above: Postponed from 1984 (Declined at t his time) Start: 04-02-2023 Urine microalbumin profile DTAP,TDAP,TD (1 - Tdap) [facility] Comment on above: Postponed from 1985 (Declined at t his time) Start: 01-12-2023 End: 03-14-2023 Thyrotropin [Units/volume] in Serum or Plasma TSH BLD Lab Routine Abnormal results of thyroid function studies Expected: 01/12/2023, Expires: 03/14/2023 [facility] Work Phone: Comment on above: Expected: 01/12/2023, Expires: 3 Start: 01-12-2023 End: 03-14-2023 Thyroxine (T4) free [Mass/volume] in Serum or Plasma T4 FREE/FREE THYROX Lab Routine Abnormal results of thyroid function studies Expected: 01/12/2023, Expires: 03/14/2023 [facility] Work Phone: Comment on above: Expected: 01/12/2023, Expires: 3 Start: 01-12-2023 End: 03-14-2023 Triiodothyronine (T3) [Mass/volume] in Serum or Plasma T3 BLD Lab Routine Abnormal results of thyroid function studies Expected: 01/12/2023, Expires: 03/14/2023 [facility] Work Phone: Comment on above: Expected: 01/12/2023, Expires: 3 Start: 11-11-2022 DEPRESSION ASSESSMENT DEPRESSION ASSESSMENT [facility] Start: 09-20-2022 End: 11-20-2022 Thyrotropin [Units/volume] in Serum or Plasma TSH BLD Lab Routine Multiple thyroid nodules Abnormal results of thyroid function studies Expected: 09/20/2022 (Approximate), Expires: 11/20/2022 [facility] Work Phone: Comment on above: Expected: 09/20/2022 (Approximate), Expi res: 11/20/2022 Start: 09-20-2022 End: 11-20-2022 Thyroxine (T4) free [Mass/volume] in Serum or Plasma T4 FREE/FREE THYROX Lab Routine Multiple thyroid nodules Abnormal results of thyroid function studies Expected: 09/20/2022 (Approximate), Expires: 11/20/2022 [facility] Work Phone: Comment on above: Expected: 09/20/2022 (Approximate), Expi res: 11/20/2022 Start: 09-20-2022 End: 11-20-2022 Triiodothyronine (T3) [Mass/volume] in Serum or Plasma T3 BLD Lab Routine Multiple thyroid nodules Abnormal results of thyroid function studies Expected: 09/20/2022 (Approximate), Expires: 11/20/2022 [facility] Work Phone: Comment on above: Expected: 09/20/2022 (Approximate), Expi res: 11/20/2022 Start: 07-14-2022 End: 09-13-2022 Thyrotropin [Units/volume] in Serum or Plasma TSH BLD Lab Routine Hyperthyroidism Expected: 07/14/2022 (Approximate), Expires: 09/13/2022 [facility] Work Phone: Comment on above: Expected: 07/14/2022 (Approximate), Expi res: 09/13/2022 Start: 07-14-2022 End: 09-13-2022 Thyroxine (T4) free [Mass/volume] in Serum or Plasma T4 FREE/FREE THYROX Lab Routine Hyperthyroidism Expected: 07/14/2022 (Approximate), Expires: 09/13/2022 [facility] Work Phone: Comment on above: Expected: 07/14/2022 (Approximate), Expi res: 09/13/2022 Start: 07-14-2022 End: 09-13-2022 Triiodothyronine (T3) [Mass/volume] in Serum or Plasma T3 BLD Lab Routine Hyperthyroidism Expected: 07/14/2022 (Approximate), Expires: 09/13/2022 [facility] Work Phone: Comment on above: Expected: 07/14/2022 (Approximate), Expi res: 09/13/2022 Start: 07-12-2022 Influenza vaccination [facility] Start: 07-05-2022 End: 09-04-2022 VITAMIN D 25 HYDROXY VITAMIN D 25 HYDROXY Lab Routine Vitamin D deficiency Expected: 07/05/2022, Expires: 09/04/2022 [facility] Work Phone: Comment on above: Expected: 07/05/2022, Expires: 2 Start: 05-05-2022 End: 07-05-2022 T3 BLD T3 BLD Lab Routine Hyperthyroidism Expected: 05/05/2022, Expires: 07/05/2022 [facility] Work Phone: Comment on above: Expected: 05/05/2022, Expires: 2 Start: 05-05-2022 End: 07-05-2022 T4 FREE/FREE THYROX T4 FREE/FREE THYROX Lab Routine Hyperthyroidism Expected: 05/05/2022, Expires: 07/05/2022 [facility] Work Phone: Comment on above: Expected: 05/05/2022, Expires: 2 Start: 05-05-2022 End: 07-05-2022 Thyrotropin [Units/volume] in Serum or Plasma TSH BLD Lab Routine Hyperthyroidism Expected: 05/05/2022, Expires: 07/05/2022 [facility] Work Phone: Comment on above: Expected: 05/05/2022, Expires: 2 Start: 05-05-2022 End: 07-05-2022 Triiodothyronine (T3) Free [Mass/volume] in Serum or Plasma [facility] Work Phone: Comment on above: Expected: 05/05/2022, Expires: 2 Start: 04-25-2022 End: 06-25-2022 Thyroglobulin and Thyrogobulin Ab panel - Serum or Plasma THYROGLOBULIN BLD Lab Routine Hyperthyroidism Expected: 04/25/2022, Expires: 06/25/2022 [facility] Work Phone: Comment on above: Expected: 04/25/2022, Expires: 2 Start: 04-25-2022 End: 06-25-2022 THYROID PEROXIDASE ANTIBODY BLOOD THYROID PEROXIDASE ANTIBODY BLOOD Lab Routine Hyperthyroidism Expected: 04/25/2022, Expires: 06/25/2022 [facility] Work Phone: Comment on above: Expected: 04/25/2022, Expires: 2 Start: 04-25-2022 End: 06-25-2022 THYROID STIMULATING IMMUNOGLOBULIN BLOOD THYROID STIMULATING IMMUNOGLOBULIN BLOOD Lab Routine Hyperthyroidism Expected: 04/25/2022, Expires: 06/25/2022 [facility] Work Phone: Comment on above: Expected: 04/25/2022, Expires: 2 Start: 04-25-2022 End: 06-25-2022 Thyrotropin [Units/volume] in Serum or Plasma TSH BLD Lab Routine Hyperthyroidism Expected: 04/25/2022, Expires: 06/25/2022 [facility] Work Phone: Comment on above: Expected: 04/25/2022, Expires: 2 Start: 04-25-2022 End: 06-25-2022 Thyroxine (T4) free [Mass/volume] in Serum or Plasma T4 FREE/FREE THYROX Lab Routine Hyperthyroidism Expected: 04/25/2022, Expires: 06/25/2022 [facility] Work Phone: Comment on above: Expected: 04/25/2022, Expires: 2 Start: 04-25-2022 End: 06-25-2022 Triiodothyronine (T3) [Mass/volume] in Serum or Plasma T3 BLD Lab Routine Hyperthyroidism Expected: 04/25/2022, Expires: 06/25/2022 [facility] Work Phone: Comment on above: Expected: 04/25/2022, Expires: 2 Start: 04-02-2022 End: 06-02-2022 CBC panel - Blood by Automated count CBC Lab Routine Fatigue, unspecified type Expected: 04/02/2022, Expires: 06/02/2022 [facility] Work Phone: Comment on above: Expected: 04/02/2022, Expires: 2 Start: 04-02-2022 End: 06-02-2022 Comprehensive metabolic 2000 panel - Serum or Plasma COMP METABOLIC PANEL Lab Routine Fatigue, unspecified type Expected: 04/02/2022, Expires: 06/02/2022 [facility] Work Phone: Comment on above: Expected: 04/02/2022, Expires: 2 Start: 04-02-2022 End: 06-02-2022 FERRITIN BLD FERRITIN BLD Lab Routine Fatigue, unspecified type Expected: 04/02/2022, Expires: 06/02/2022 [facility] Work Phone: Comment on above: Expected: 04/02/2022, Expires: 2 Start: 04-02-2022 End: 06-02-2022 Hemoglobin A1c/Hemoglobin.total in Blood HGB A1C Lab Routine Fatigue, unspecified type Expected: 04/02/2022, Expires: 06/02/2022 [facility] Work Phone: Comment on above: Expected: 04/02/2022, Expires: 2 Start: 04-02-2022 End: 06-02-2022 IRON + TIBC IRON + TIBC Lab Routine Fatigue, unspecified type Expected: 04/02/2022, Expires: 06/02/2022 [facility] Work Phone: Comment on above: Expected: 04/02/2022, Expires: 2 Start: 04-02-2022 End: 06-02-2022 LIPID PANEL BASIC LIPID PANEL BASIC Lab Routine Fatigue, unspecified type Expected: 04/02/2022, Expires: 06/02/2022 [facility] Work Phone: Comment on above: Expected: 04/02/2022, Expires: 2 Start: 04-02-2022 End: 06-02-2022 T3 BLD T3 BLD Lab Routine Fatigue, unspecified type Dysphagia, unspecified type Expected: 04/02/2022, Expires: 06/02/2022 [facility] Work Phone: Comment on above: Expected: 04/02/2022, Expires: 2 Start: 04-02-2022 End: 06-02-2022 T4 FREE/FREE THYROX T4 FREE/FREE THYROX Lab Routine Fatigue, unspecified type Dysphagia, unspecified type Expected: 04/02/2022, Expires: 06/02/2022 [facility] Work Phone: Comment on above: Expected: 04/02/2022, Expires: 2 Start: 04-02-2022 End: 06-02-2022 Thyrotropin [Units/volume] in Serum or Plasma TSH BLD Lab Routine Fatigue, unspecified type Dysphagia, unspecified type Expected: 04/02/2022, Expires: 06/02/2022 [facility] Work Phone: Comment on above: Expected: 04/02/2022, Expires: 2 Start: 04-02-2022 End: 06-02-2022 VITAMIN B12 BLOOD VITAMIN B12 BLOOD Lab Routine Fatigue, unspecified type Expected: 04/02/2022, Expires: 06/02/2022 [facility] Work Phone: Comment on above: Expected: 04/02/2022, Expires: 2 Start: 04-02-2022 End: 06-02-2022 VITAMIN D 25 HYDROXY VITAMIN D 25 HYDROXY Lab Routine Fatigue, unspecified type Expected: 04/02/2022, Expires: 06/02/2022 [facility] Work Phone: Comment on above: Expected: 04/02/2022, Expires: 2 Start: 11-11-2021 DEPRESSION ASSESSMENT DEPRESSION ASSESSMENT [facility] Start: 07-27-2021 COVID-19 VACCINE (3 - Booster for Pfizer series) COVID-19 VACCINE (3 - Booster for Pfizer series) [facility] Start: 05-26-2021 Mammography MAMMOGRAM [facility] Start: 04-21-2021 COVID-19 VACCINE (3 - Booster for Pfizer series) COVID-19 VACCINE (3 - Booster for Pfizer series) [facility] Start: 08-03-2018 LIPID SCREEN LIPID SCREEN [facility] Start: 01-23-2018 PAP TESTING PAP TESTING [facility] Start: 01-23-2018 Screening for malignant neoplasm of cervix Pap Testing [facility] Start: 08-03-2016 DIABETES SCREEN DIABETES SCREEN [facility] Start: 2016 Pneumococcal Vaccine: 50+ (1 of 1 - PCV) Pneumococcal Vaccine: 50+ (1 of 1 - PCV) [facility] Start: 2016 SHINGRIX VACCINE (1 of 2) SHINGRIX VACCINE (1 of 2) [facility] Start: 01-24-2016 Screening for malignant neoplasm of cervix Cervical Cancer Screening [facility] Start: 2011 COLOGUARD (FIT-DNA) COLOGUARD (FIT-DNA) [facility] Start: [address] COLONOGRAPHY [facility] Start: 2011 FECAL OCCULT BLOOD FECAL OCCULT BLOOD [facility] Start: 2011 Screening for malignant neoplasm of colon [facility] Start: 2011 SIGMOIDOSCOPY SIGMOIDOSCOPY [facility] Start: 1996 HPV TESTING HPV TESTING [facility] Start: 1996 Screening for malignant neoplasm of cervix HPV Testing [facility] Start: 1985 Hepatitis B Vaccine (1 of 3 - 19+ 3-dose series) Hepatitis B Vaccine (1 of 3 - 19+ 3-dose series) [facility] Start: 1985 Urine microalbumin profile [facility] Start: 1984 Anxiety Screening Anxiety Screening [facility] Start: 1984 Depression Screening Depression Screening [facility] Start: 1984 HEPATITIS C SCREENING HEPATITIS C SCREENING [facility] Start: 1984 Hepatitis C screening Hepatitis C Screening [facility] Start: 1984 HIV SCREENING HIV SCREENING [facility] Start: 1984 HIV screening HIV Screening [facility] Start: 1978 Adult depression screening assessment DEPRESSION SCREENING [facility] Start: 1971 COVID-19 VACCINE (1) COVID-19 VACCINE (1) [facility] Start: 1966 HEPATITIS B (1 of 3 - 3-dose series) HEPATITIS B (1 of 3 - 3-dose series) [facility] Biopsy thyroid percutaneous core needle IMAGING GUIDED BIOPSY THYROID Radiology Routine Thyroid nodule Ordered: 09/25/2022 [facility] Work Phone: Comment on above: Ordered: 09/25/2022 CYTOLOGY NON-BREAD WRAPPER OPERATOR [facility] Work Phone: Comment on above: Ordered: 09/18/2022 CYTOLOGY NON-BREAD WRAPPER OPERATOR CYTOLOGY NON-GY N Lab Routine Multiple thyroid nodules Ordered: 09/25/2022 [facility] Work Phone: Comment on above: Ordered: 09/25/2022 Influenza virus A an d B RNA and SARS-CoV-2 (COVID-19) N gene panel - Respiratory specimen by JACOBO with probe detection COVID WITH FLUA+B, ROUTINE Microbiology Routine Post-nasal drainage Ordered: 04/02/2022 [facility] Work Phone: Comment on above: Ordered: 04/02/2022 Patient Education [facility] Work Phone: Patient referral [facility] Work Phone: End: 05-02-2023 Screening mammography bi 2-view breast inc cad PEMA SCREENING Radiology Routine Wellness examination 1 Occurrences starting 04/02/2022 until 05/02/2023 [facility] Work Phone: Comment on above: 1 Occurrences starting 04/02/2022 until 05/02/2023 End: 06-08-2023 Thyroid uptake single/multiple quant measurement NM THY UPTAKE ONLY Radiology Routine Hyperthyroidism Multiple thyroid nodules 1 Occurrences starting 05/09/2022 until 06/08/2023 [facility] Work Phone: Comment on above: 1 Occurrences starting 05/09/2022 until 06/08/2023 End: 05-28-2022 Thyroid uptake single/multiple quant measurement NM THY UPTAKE ONLY Radiology Routine Hyperthyroidism Multiple thyroid nodules 1 Occurrences starting 05/28/2022 until 05/28/2022 [facility] Work Phone: Comment on above: 1 Occurrences starting 05/28/2022 until 05/28/2022 End: 06-06-2023 Thyroid uptake w/blood flow sngle/mult jenniffer marcela NM THY UPTAKE AND SCAN Radiology Routine Hyperthyroidism 1 Occurrences starting 05/07/2022 until 06/06/2023 [facility] Work Phone: Comment on above: 1 Occurrences starting 05/07/2022 until 06/06/2023 End: 05-04-2023 Us soft tissue head & neck real time imge docm US THYROID/PARATHYROID Radiology Routine Hyperthyroidism 1 Occurrences starting 04/04/2022 until 05/04/2023 [facility] Work Phone: Comment on above: 1 Occurrences starting 04/04/2022 until 05/04/2023 End: 05-20-2025 US Thyroid gland US THYROID/PARATHYROID Radiology Routine Abnormal results of thyroid function studies Multiple thyroid nodules 1 Occurrences starting 04/20/2024 until 05/20/2025 [facility] Work Phone: Comment on above: 1 Occurrences starting 04/20/2024 until 05/20/2025 [facility] Immunizations Immunization Date Immunization Notes Care Provider Fa cili 04-18-2025 tetanus toxoid, redu gina diphtheria toxoid, and acellular pertussis vaccine, adsorbed Yosi Chaney MD Work Phone: [facility] Payers Date Payer Category Payer Self-pay [id number] [address] [facility] [id number] 2021 Unknown [employer] PPO [id number] 2021-Present [phone] [address] [place] [address] PPO [id number] 2021 Unknown [employer] PPO [id number] 2021-Present [phone] [address] [place] [address] PPO [id number] 2021 Unknown [id number] 2013 Private Health Insurance [employer] A ETNA CHOICE POS II [id number] 2013-Present [phone] [address] [place] [address] POS [id number] Private Health Insurance [id number] Unknown [id number] Unknown [id number] Unknown [id number] Unknown [id number] Social History Date Type Detail Facility [facility] Work Phone: Start: 1965 Sex Assigned At Female [facility] Start: 02-26-2014 End: 04-18-2025 Tobacco smoking status NHIS Ex-smoker [facility] Work Phone: Start: 11-11-1985 End: 11-11-2000 History of tobacco use Current smoker [facility] Work Phone: Start: 11-11-1985 End: 11-11-2000 History of tobacco use Cigarette Smoker [facility] Work Phone: Start: 02-26-2014 End: 04-20-2024 Cigarettes smoked current (pack per day) - Reported 0.[address] [facility] Start: 02-26-2014 End: 04-18-2025 Tobacco use and exposure Smokeless tobacco non-user [facility] Work Phone: Start: 04-13-2020 End: 04-18-2025 Alcohol intake Current drinker of alcohol (finding) [facility] Start: 04-13-2020 History SDOH Alcohol Comment socially [facility] Start: 02-26-2014 End: 07-31-2022 Tobacco Comment 14-15 years about 1/[address] [facility] Start: 1965 Sex Assigned At Not on file [facility] Start: 03-28-2022 History SDOH Alcohol Frequency [address] [facility] Start: 03-28-2022 History SDOH Alcohol Std Drinks [address] [facility] Start: 03-28-2022 History SDOH Social Connections Phone [address] [facility] Start: 03-28-2022 History SDOH Social Connections Get Together [address] [facility] Start: 03-28-2022 History SDOH Physica l Activity MPS [address] [facility] Start: 03-23-2022 End: 07-31-2022 Exposure to SARS-CoV-2 (event) Not sure [facility] Start: 04-15-2022 End: 04-25-2022 Exposure to SARS-CoV-2 (event) Yes [facility] Start: 03-28-2022 End: 04-20-2024 Social connection and isolation panel [facility] Do you belong to any clubs or organizations such as advent groups, unions, fraternal or athletic groups, or school groups? No [facility] Are you now , , , , never or living with a partner? [facility] How often to you hav e a drink containing alcohol? Monthly or less [facility] How many standard dr inks containing alcohol do you have on a typical day? 1 or 2 [facility] How often do you hav e 6 or more drinks on 1 occasion? Never [facility] How hard is it for y ou to pay for the very basics like food, housing, medical care, and heating Not very hard [facility] Do you feel stress - tense, restless, nervous, or anxious, or unable to sleep at night because your mind is troubled all the time - these days [OSQ] Not at all [facility] (I/We) worried wheth er (my/our) food would run out before (I/we) got money to buy more. Never true [facility] In the past 12 month s, has lack of transportation kept you from medical appointments or from getting medications? No [facility] Start: 04-07-2025 End: 06-16-2025 Tobacco smoking status NHIS Never smoked tobacco (finding) [facility] Goals Date Patient Goal Desired Activity /State Functional Status Date Assessment Result Facility 11-07-2014 Are you deaf, or do you have serious difficulty hearing No 11/07/2014 2:54 PM Marychuy Wolf LPN No [facility] 11-07-2014 Are you blind, or do you have serious difficulty seeing, even when wearing glasses No 11/07/2014 2:54 PM Marychuy Wolf LPN No [facility] 11-07-2014 Do you have serious difficulty walking or climbing stairs No 11/07/2014 2:54 PM Marychuy Wolf LPN No [facility] 11-07-2014 Do you have difficul ty dressing or bathing No 11/07/2014 2:54 PM Marychuy Wolf LPN No [facility] 11-07-2014 Because of a physica l, mental, or emotional condition, do you have difficulty doing errands alone such as visiting a physician's office or shopping No 11/07/2014 2:54 PM Marychuy Wolf LPN No [facility] Mental Status Date Assessment Result Facility 06-22-2025 Cognitive function Voice/Name [facility] Work Phone: 04-07-2025 Cognitive function Level Of Cons ciousness Awake;Alert;Appropriate;Fol lows Commands [facility] Work Phone: 11-07-2014 Because of a physica l, mental, or emotional condition, do you have serious difficulty concentrating, remembering, or making decisions No 11/07/2014 2:54 PM Marychuy Wolf MEMO No [facility] Clinical Notes 03-07-2022 to 06-22-2025 Note Date & Type Note Facility 06-22-2025 Consult note [facility] 06-22-2025 Procedure note [facility] 06-22-2025 Procedure note [facility] 06-22-2025 History and physi gladys note [facility] 06-22-2025 Consult note [facility] 05-04-2025 Evaluation note Diagnosis Onset Date Resolution Globus sensation acute April 7:58am GERD (gastroesophageal reflux disease) chronic May 04, 2025 7:58am Globus sensation acute June 112024 11:51am GERD (gastroesophageal reflux disease) chronic June 22 11:51am [facility] Work Phone: 1(110) 669-266006-08-2025 NoteHNO ID: [id number] Author: BRETT DONALDSON APRN.SENIOR MAINTENANCE MACHINIST Service: ? Author Type: Nurse Practitioner Type: Progress Notes Filed: 04/18/2025 09:23 Note Text: Patient came in with complaints of right eye discomfort. Patient says her cat scratched her in the eye yesterday. Patient says she is having cloudy vision in the eye. At this time patient is being referred to the emergency room due to vision changes. Patient agreeable and will take her self.[facility]06[facility] History of Present illness Narrative* Brett Donaldson APRN.SENIOR MAINTENANCE MACHINIST - 04/18/2025 9:23 AM EDT Patient came in with complaints of right eye discomfort. Patient says her cat scratched her in the eye yesterday. Patient says she is having cloudy vision in the eye. At this time patient is being referred to the emergency room due to vision changes. Patient agreeable and will take her self. documented [facility] Discharge instructions Additional Instructions You have an abrasion to the right conjunctiva from a cat scratch. Use the antibiotic eyedrop and follow-up with ophthalmology for wound check within the [facility] Work Phone: 1(686) 365-319605-28-2025 Discharge summary [facility] [facility] [address] [place] [address] Emergency Department Summary 04/07/25 MR#: [id number] Acct: [id number] Name: DO RUIZ Rep #:[id number] : 1965 60 From: Yosi Chaney MD [...] and will not go away. No exacerbating oralleviating factors. PFSH PFSH Allergy/AdvReac Type Severity Reaction [...] auscultation bilaterally. HEENT examination is grossly unremarkable. Nodrooling or trismus. Airway is patent. Posterior pharynx [...] low suspicion for esophageal food impaction as sheis handling her secretions. She will be given a p.o. challenge. CT imaging will be obtained to ruleout foreignbody and hematoma. I reviewed her laboratory work and she has normal white count 6.8 with hemoglobin 14.1, hematocrit 42.8, platelet count normal at 281. I also reviewedthe radiology report of the CT of the soft tissueneck and there is no acute obstruction, no foreign body. I also reviewed her BMP. BMP obtained and r eviewed and shows glucose 116 but BUN normal [...] 75.1 H Lymph % (Auto) 14.2 L Placer % (Auto) 7.3 Eos % (Auto) 2.5 [...] SOFT TISSUES OF THE NECK. Reading Location: [place] [address] Discharge Plan Triage Chief Complaint: Foreign Body [...] worsening symptoms. You may want to start xxec-rcc-pkihstt omeprazole, and follow-up withgastroenterology. Print Language: Kuwaiti Disposition Disposition: Home, Self Care What to do if you have Problems For any increased pain, shortness of breath, bleeding, nausea or vomiting, chestpain, or any unexpected problems, contact your Primary Care Provider. Call [facility] ([phone]) or report tothe closest Emergency Room. Call 911 if necessary. 04/07/25 6852 Cosigner Signature (if applicable): CC: Dr. Uriel Lovelace DO ~ [facility]05-28-2025 Radiology Diagnostic study note [facility] Imaging Services [address] [place], [place] [address] Soft Tissue Neck WITH Contrast MR#: [id number] Acct: [id number] Name: OD RUIZ Rep #: [id number] : 1965 F 60 From: Alton Ceron MD PCP: Dr. Uriel Lovelace DO Status: RE G ER Study:Soft Tissue Neck WITH Contrast Date of Exam: 04/07/25 Exam# [id number] Ordering Dr: Yosi Chaney MD PROCEDURE: SOFT TISSUE NECK WITH CONTRAST 04/07/2025 REASON FOR EXAM: LUMP IN THROAT Emesis. TECHNIQUE: CT of the soft tissues of the neck from the orbits to the upper mediastinum withintravenous contrast. CONTRAST: Isovue 370 VOLUME: 80 mL One or more dose reduction techniques were used (e.g., Automatedexposure control, adjustment of the mA and/or kV [...] SOFT TISSUES OF THE NECK. Reading Location: [place] [address] CC: Dr. Yosi Chaney MD; Dr. Uriel Lovelace DO ~ Specialties Operator: [facility]05-01-2025 Hospital Discharge instructions Additional Instructions Return to the emergency department with difficulty swallowing, new or worsening symptoms. You may want to start pgjr-syx-znbagwx omeprazole, and follow-up with gastroenterology. [facility] Work Phone: [phone] Telephone encounter Note* Telephone Encounter - Merced Rivera - 08/18/2024 5:23 PM EDT Lvm for pt stating that they have a referral to see an endocrine dietitian. Provided number to calland schedule. [facility]10-08-2024 Miscellaneous Notes* Telephone Encounter - Merced Rivera - 08/18/2024 5:23 PM EDT Lvm for pt stating that they have a referral to see an endocrine dietitian. Provided number to calland schedule. documented in this encounterMer[facility]08-09-2024 Instructions* Patient Instructions* Isi Lawrence MD - 06/19/2024 9:23 AM [...] including instructions on how to administer the medication,visit [email or web address] There may be special savings available for Wegovy depending on your insurance. To learn more, visit: [email or web address] If Wegovy is not covered by insurance or is still too expensive, we will plan to start bupropion/naltrexone. To follow-up in our office: You can call the appointment Center: [phone] to make your follow-up appointments with myself or the nurse practitioners I work with in [place], Chitra Roblero APRN.CNP or Briseida Guzman APRN.CNP. Dietitian: [phone], option # 3 Please call this number to make your appointment. You can be see one of our providers in person or virtually. Sleep Clinic: [phone] documented in [address]08-09-2024 History of Present illness Narrative* Isi Lawrence MD - 06/19/2024 8:50 AM EDT Images from the original note were not included. [facility] VIRTUAL VISIT--INITIAL VISIT This is a virtual visit using [employer] Zoom Video Visit, switched to telephone call due to technicalissues. Physical exam was able to be completed prior to transitioning to audio-only. It required patient-provider interaction for the medical decision making as documented below. I have communicated my name and active licensure. The patient's identity and physical location wereverified at the time of this visit. Either the patient or their legal independent sales representative has been informed of the risks and benefits of -- and alternatives to -- treatment through a remote evaluation andconsents to proceed with the evaluation remotely. 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 [...] the patient the possibility of using weight loss- promoting medications and the various options available. -- [...] or family history of MTC, MEN2. No personalhistory of pancreatitis or active gallbladder disease. -- Current weight-promoting medications: -- Exercise/physical activity: -- Discussed basic exercise recommendations, the role of exercise on weight loss and maintenance. Discussed the combination of aerobic and resistance exercise. -- Recommend gradual increase in exercise. Goal is 150+ minutes moderate- intensity exercise per week + strength training/resistance exercise [...] 1x/week, food journals / trackers (Food log, SaveFans! Pal), activity journals / trackers ([place]-Tetra watch, Correlsense, [employer] vivofit, Striiv). -- Other -- Pt will [...] order. PLEASE SCHEDULE THIS VISIT IN YOUR [employer] ACCOUNT, OR CALL TO SCHEDULE FOLLOWS: [facility] [phone] [facility] LOCATIONS [phone] Order Specific Question: Does consulting provider have [...] Isi Lawrence MD, RD documented in this encounterMercy Health St. [facility]08-09-2024 NoteHNO ID: [id number] Author: ISI LAWRENCE MD Service: ? Author Type: Physician Type: Progress Notes Filed: 06/19/2024 09:29 Note Text: [facility] VIRTUAL VISIT--INITIAL VISIT This is a virtual visit using [employer] Zoom Video Visit, switched to telephone call due to technical issues. Physical exam was able to be completed prior to transitioning to audio-only. It required patient-provider interaction for the medical decision making as documented below. I have communicated my name and active licensure. The patient's identity and physical location were verified at the time of this visit. Either the patient or their legal independent sales representative has been informed of the risks and benefits of -- and alternatives to -- treatment through a remote evaluation and consents to proceed with the evaluation remotely. 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 Call [phone] to schedule at your preferred location Repeat thyroid blood test in 1 year. This can be done through your primary care provider, but we can order that for you as well if you prefer documented in this encounterMercy Health St. [facility]06-10-2024 History of Present illness Narrative* Dex Santiago MD - 04/20/2024 9:20 AM EDT ENDOCRINOLOGY CLINIC NOTE Ms. Ruiz is a pleasant 59 year old female [...] TT3 171. She had negative TSI, TPO andTG antibodies TFTs in 04/2024 showed TSH 3.22, [...] 2 points Echogenicity: Hypoechoic, 2 points Shape: Ostkl-qetq-slhd, 0 points Margin: Ill-defined, 0 points Echogenic [...] Echogenicity cannot be determined, 1 point Shape: Ecaozp-kezo-mjhq, 3 points Margin: Lobulated or irregular, 2 [...] suggestive of thyroiditis. Assessment and Recommendations: Ms. Ruiz is a pleasant 59-year-old woman presented for evaluation and management of hyperthyroidism and thyroid nodules. Hyperthyroidism: She reported fatigue and excessive sweating and her TFTs were checked showing low TSH and elevated T4 and T3. This was preceded by what seems to be an upper respiratory tract infection 2 months earlier. Thyroid uptake was very low consistent with thyroiditis. She developed transient hypothyroidism buther TFTs are now normal and she feels [...] reviewed, confirmed, and/or updated by me (Dex Santiago MD) on 04/20/2024 Virtual Visit (Audio/Visual)I have [...] Decision Making Level: 4 - Moderate Dex Santiago MD documented in this encounterMercy Health St. [facility]06-10-2024 NoteHNO ID: [id number] Author: DEX SANTIAGO MD Service: ? Author Type: Physician Type: Progress Notes Filed: 04/20/2024 09:35 Note Text: ENDOCRINOLOGY CLINIC NOTE Ms. Ruiz is a pleasant 59 year old female [...] CERVIX UPPER/ADJACENT VAGINA Colposcopy CONIZATION CERVIX W/WO DANDC RPR ELTRD EXC LEEP-Cervix STEREOTACTIC CORE BIOPSY [...] 3.090 T3 191 (H) 113 119 94 6/24/22 07:31 05/04/22 07:32 TSI Qualitative Negative Microsomal [...] 2 points Echogenicity: Hypoechoic, 2 points Shape: Uervf-fnog-bicy, 0 points Margin: Ill-defined, 0 points Echogenic foci (add points for all that apply): None, 0 points Internal vascularity: present Interval growth: No prior available for comparison TI (more content not included)...[facility]05-29-2024 Telephone encounter Note* Telephone Encounter - Cayla Maurer RN - 04/08/2024 8:54 AM EDT Patient notified about the labs to be drawn a few days before her appointment. Closed [facility]05-29-2024 Miscellaneous Notes* Telephone Encounter - Cayla Maurer RN - 04/08/2024 8:54 AM EDT Patient notified about the labs to be drawn a few days before her appointment. Closed * Telephone Encounter - Angelita Biswas - 04/07/2024 3:53 PM EDT I called this patient and got her scheduled for VV 04.20.2024 * Telephone Encounter - Dex Santiago MD - 04/07/2024 2:31 PM EDT I placed the orders. Please schedule her for a visit soon. Virtual is fine. She should do the testsbefore the visit HH * Telephone Encounter - Cayla Maurer RN - 04/07/2024 10:06 AM EDT BOY: 01/30/23 It has been over a year since patient has been seen and a little over 6 months since labs . Did you want patient to schedule a follow up visit. Please advise. documented in this encounterMercy Health [facility]. [facility]05-28-2024 Telephone encounter Note * Telephone Encounter - Angelita Biswas - 04/07/2024 3:53 PM EDT I called this patient and got her scheduled for VV 04.20.[address] [facility]05-28-2024 Telephone encounter Note* Telephone Encounter - Dex Santiago MD - 04/07/2024 2:31 PM EDT I placed the orders. Please schedule her for a visit soon. Virtual is fine. She should do the testsbefore the visit HH [facility]05-28-2024 Telephone encounter Note* Telephone Encounter - Cayla Maurer RN - 04/07/2024 10:06 AM EDT BOY: 01/30/23 It has been over a year since patient has been seen and a little over 6 months since labs . Did you want patient to schedule a follow up visit. Please advise. [facility]03-22-2023 Instructions* Patient Instructions* Dex Santiago MD - 01/30/2023 10:15 AM EDT - Your most recent thyroid tests are normal. - I recommend repeating the blood test in about 6 months and I will update you about the results documented in this encounterMer[facility]. [facility]03-22-2023 History of Present illness Narrative* Dex Santiago MD - 01/30/2023 9:55 AM EDT ENDOCRINOLOGY CLINIC NOTE Ms. Ruiz is a pleasant 57 year old female [...] TT3 171. She had negative TSI, TPO andTG antibodies TFTs in 06/2022 showed TSH 11.5 [...] 2 points Echogenicity: Hypoechoic, 2 points Shape: Vxjin-hbyx-yptq, 0 points Margin: Ill-defined, 0 points Echogenic [...] Echogenicity cannot be determined, 1 point Shape: Hzdvle-vtfi-cfof, 3 points Margin: Lobulated or irregular, 2 [...] suggestive of thyroiditis. Assessment and Recommendations: Ms. Ruiz is a pleasant 57-year-old woman presented for evaluation and management of hyperthyroidism and thyroid nodules. Hyperthyroidism: She reported fatigue and excessive sweating and her TFTs were checked showing low TSH and elevated T4 and T3. This was preceded by what seems to be an upper respiratory tract infection 2 months earlier. Thyroid uptake was very low consistent with thyroiditis. She developed transient hypothyroidism buther TFTs are now normal and she feels [...] of the TFTs in 6 months via Temporal Power Some of the above has been copied from prior documentation on 07/31/2022 but dhillon elements reviewed, confirmed, and/or updated by me (Dex Santiago MD) on 01/30/2023 I spent a total of 27 minutes on the date of the service which included preparing to see the patient, hozs-wh-ybwy patient care, completing clinical documentation, counseling and educating the patient/family/caregiver, and ordering medications, tests, or procedures. Dex Santiago MD documented in this encounterMer[facility]03-04-2023 Miscellaneous Notes* Telephone Encounter - Dex Santiago MD - 01/12/2023 10:08 AM EST Ordered blood tests before her next visit Thanks * Telephone Encounter - Olivia Page Ma - 01/09/2023 2:39 PM EST Called Radiology to clarify and when they [...] and symptoms/issues. Patient aware we will send Lenet message once provider returns to office. * Telephone Encounter - Olivia Page Ma - 01/09/2023 1:07 PM EST Called Radiology and left voicemail to call us back. * Telephone Encounter - Olivia Page Ma - 01/07/2023 3:43 PM EST Looking at Results from [facility] and it looks like the specimen samples were cancelled on 10/22/22 the reason is unknown. We will need to call [facility] tomorrow and find out what happened. * Telephone Encounter - Lynn Voss - 01/07/2023 3:33 PM EST Patient called office to ask if appt is needed on 01/30/2023? Patient states she was never contactedafter biopsy on 10/22/2022 with results. If appt is still needed for 01/30/2023, are there any labs that needed completed prior? Please advise. Patient stated we can relay recommendations via Temporal Power message Lynn Voss documented in this encounterMer[facility]11-11-2022 Miscellaneous Notes* Telephone Encounter - Olivia Page Ma - 09/21/2022 3:15 PM EST Called and spoke with PT, expressed understanding Called Radiology and gave them information. Patient is aware [facility] will call her to set this up. Keep open until scheduled. * Telephone Encounter - Dex Santiago MD - 09/21/2022 2:43 PM EST Thank you. I recommend repeating the biopsy by interventional radiology in about 4-6 weeks if the patient is agreeable HH * Telephone Encounter - Roula Hernandez RN - 09/19/2022 3:14 PM EST Patient returned call. Patient notified of Dean's message. Stated understanding and all questions were answered. Patient aware we will await Dr Santiago's final recommendations and notify her accordingly. * Telephone Encounter - Olivia Page Ma - 09/19/2022 12:42 PM EST Called patients home and left VM to call back office at [phone]. Please give message below. * Telephone Encounter - Denita López MD - 09/19/2022 11:29 AM EST Please let the patient know that, unfortunately, the thyroid biopsy result was non-diagnostic (reported low cells on the sample). In this situations, we have the option of letting the neck rest and repeating the procedure in 3 months. I will defer the next step to Dr. Santiago FINAL DIAGNOSIS A - THYROID, RIGHT, FINE NEEDLE ASPIRATION: Non-diagnostic aspirate sample. Specimen was processed and examined but is non-diagnostic due to insufficient cellularity/follicular cells present. Denita López MD documented in this [facility]11-08-2022 History of Present illness Narrative* Denita López MD - 09/18/2022 9:54 AM EST Patient was referred by Dr. Santiago for FNAB of right and left thyroid nodule. Right thyroid lesion: very hypoechoic and mostly occupying the entire right thyroid lobe. Left thyroid lesion was not clearly visualized on our thyroid ultrasound. We proceeded with FNAB of right thyroid nodule. Of note, patient reported history of I-131 therapy for hyperthyroidism many years ago. Please see procedure note. Denita López MD documented in this [facility]11-08-2022 Nurse Note* Marie Mendoza MA - 09/18/2022 9:54 AM EST Patient came into office today for a thyroid biopsy. I assisted the doctor with the patient by setting up the biopsy , adding pressure to the site, cleaning up site and making sure the patient tolerated the procedure well. documented in this [facility]11-08-2022 Instructions* Patient Instructions* Denita López MD - 09/18/2022 9:45 AM EST We will contact you within 7 business days documented in this [facility]11-08-2022 Procedure note* Denita López MD - 09/18/2022 9:07 AM EST Fine needle aspiration of Thyroid Nodule (September 18, 2022) Referring Physician: Dex Santiago Primary Care Physician: No primary care provider on file. Indication: (E04.2) Multiple thyroid nodules (primary encounter diagnosis) Comment: Patient was referred by Dr. Santiago for FNAB of right and left thyroid nodule. Right thyroid lesion: very hypoechoic and mostly occupying the entire right thyroid lobe. Left thyroid lesion was not clearly visualized on our thyroid ultrasound. We proceeded with FNAB of right thyroid nodule. Of note, patient reported history of I-131 therapy for hyperthyroidism many years ago. Plan: CYTOLOGY NON-BREAD WRAPPER OPERATOR, US THYROID/PARATHYROID (POC) ENDO USE ONLY, CYTOLOGY NON-BREAD WRAPPER OPERATOR Do Ruiz was identified by name and date, acknowledges [...] Dr.Husni Denita López MD documented in this encounterMer[facility]09-20-2022 Instructions* Patient Instructions* Dex Santiago MD - 07/31/2022 10:51 AM EDT - Recheck the thyroid blood test in about 2 months - We will arrange for a biopsy of the thyroid nodules and will let you know about the appointment documented in this encounterMer[facility]09-20-2022 History of Present illness Narrative* Dex Santiago MD - 07/31/2022 10:40 AM EDT ENDOCRINOLOGY CLINIC NOTE Ms. Ruiz is a pleasant 57 year old female [...] TT3 171. She had negative TSI, TPO andTG antibodies Thyroid ultrasound in 04/2022 showed normal [...] 2 points Echogenicity: Hypoechoic, 2 points Shape: Xqfhg-aswi-zcdh, 0 points Margin: Ill-defined, 0 points Echogenic [...] Echogenicity cannot be determined, 1 point Shape: Buhlje-vqke-lvam, 3 points Margin: Lobulated or irregular, 2 [...] suggestive of thyroiditis. Assessment and Recommendations: Ms. Riuz is a pleasant 57-year-old woman presented for [...] today. She has had weight loss, but shehas been trying to lose weight through dietary modifications. Thyroid uptake was very low consistent with thyroiditis. She developed transient hypothyroidism buther TFTs and symptoms are improving. We will [...] reviewed, confirmed, and/or updated by me (Dex Santiago MD) on 07/31/2022 I spent a total of 30 minutes on the date of the service which included preparing to see the patient, tjtq-ha-ixtp patient care, completing clinical documentation, counseling and educating the patient/family/caregiver, and ordering medications, tests, or procedures. Dex Santiago MD documented in this encounterMer[facility]07-21-2022 Miscellaneous Notes* Letter - Mammography Coordinator - 05/31/2022 12:41 PM EDT May 31, 2022 PID: [id number] Do Ruiz [address] [place] [address] Dear Ms. Ruiz, We are pleased to inform you that [...] report will be kept on file at [facility] as part of your permanent medical record and are available for your continuing care. Thank you for allowing us to help in meeting your health care needs. Sincerely, Dr. Ruvalcaba Interpreting Radiologist [facility] (Normal over 40) documented in this encounterMercy Health St. [facility]07-21-2022 History of Present illness Narrative* Mayito Reece - 05/31/2022 8:10 AM EDT Radiology Service Progress Note PATIENT NAME: Do Ruiz DATE OF SERVICE: May 31, 2022 TIME: 8:15 AM PATIENT IDENTITY VERIFICATION COMPLETED USING TWO (2) IDENTIFIERS: Name and Date of confirmedby patient verbally. FALL SCREENING: Has the patient had 2 falls in the last year or 1 fall with injury or currently using an Ambulatory Assistive Device (Walker, Cane, Wheelchair, Crutches, etc.)? No PATIENT GENDER DATA: Female. status: : No status: NO. PATIENT RELEVANT IMPLANT DATA REVIEWED: Not Applicable RADIOLOGY DEPARTMENT: Mammography PERIPHERAL IV DATA: Not applicable SIGNED BY: Mayito Reece May 31, 2022 8:15 AM documented in this encounterMercy Health St. [facility]07-18-2022 History of Present illness Narrative* RT Varsha(Renetta) - 05/28/2022 9:30 AM EDT RADIOLOGY SERVICE PROGRESS NOTE SERVICE DATE: 05/28/2022 [...] creatinine assay has traceable calibration to isotope dilution- mass spectrometry. Refer to KDIGO guidelines for clinical interpretation. In patients with unstable renal function, e.g. those with acute kidney injury, the eGFRmay not accurately reflect actual GFR. P.O.C.T. RESULTS: N/A May 28, [address] PERFORMED: No IV SITE: NM only - not applicable, oral or physician administered agents given to patient POST EXAM PIV STATUS: Not applicable PROCEDURE TYPE: NM INJECT: NM THYROID UPTAKE AND SCAN. 343.2 microcuries Nal-123 Capsules by mouth.No other medications given.. ADMINISTRATION TIME: 9:26am PATIENT DISCHARGED TO: Ambulatory patient, left [place] department area. A Diagnostic radioactive procedure has taken place, with no further precautions necessary other than routine body substance precautions. More information regarding radiation safety can be found usingthis link: [email or web address]%[email or web address] SIGNATURE: RT Varsha(Renetta) PATIENT NAME: Do Ruiz DATE: May 28, 2022 TIME: 9:31 AM PAGER/CONTACT #: documented in this encounterMercy Health St. [facility]06-29-2022 Miscellaneous Notes* Telephone Encounter - Taryn Edwards - 05/09/2022 8:41 AM EDT 05/09 request sent for thyroid uptake only order. * Telephone Encounter - Ronald Patel MD, MD - 05/07/2022 1:03 PM EDT Hyperthyroidism or Nodule - 300 Micro I-123 Capsules for Diagnostic Imaging 4 hr and 24 hr uptake and scan (Mon-Thurs after 9:00am) Scheduling Instructions: Uptake at 4 and 24 hrs with scan at 24 hrs only Approved by: Ronald Patel MD Date Completed: May 07, 2022 Route to P Pet Swine Genetics Researcher ([id number]) * Telephone Encounter - Dean Akbar - 05/07/2022 11:55 AM EDT Name: Do Ruiz AGE: [age] year old Will the patient need anesthesia? NO Diagnosis: Hyperthyroidism [E05.90] Ordering Physician: Dex Santiago Date sent for review: May 07, 2022 Select exam: Indication: THYROID NON ENDO-MD Route to P NM MD Triage or DEYANIRA scan route to P COORD REVIEW MC (if required) documented in this encounterMer[facility]29[facility]2022 Miscellaneous Notes* Telephone Encounter - Taryn Edwards - 05/09/2022 8:36 AM EDT Watson, Please enter order #[id number] for NM thy uptake only. Unable to schedule. Thanks documented in this encounterMer[facility] Health St. [facility]06-15-2022 Instructions* Patient Instructions* Dex Santiago MD - 04/25/2022 3:46 PM EDT - Blood tests at your convenience soon - I will update you about the results and next steps through MyChart. We may need to do a thyroid scan and biopsy of the nodules depending on the results documented in this encounterMercy Health St. [facility]06-15-2022 History of Present illness Narrative* Dex Santiago MD - 04/25/2022 3:00 PM EDT ENDOCRINOLOGY CLINIC NOTE Ms. Ruiz is a 57 year old female with [...] and LN swelling disappeared , but the symptomsabove persisted. No known family history of thyroid [...] 2 points Echogenicity: Hypoechoic, 2 points Shape: Vplvr-ombx-mevy, 0 points Margin: Ill-defined, 0 points Echogenic [...] Echogenicity cannot be determined, 1 point Shape: Csaxww-jswd-rhhq, 3 points Margin: Lobulated or irregular, 2 [...] previous biopsy results. Assessment and Recommendations: Ms. Ruiz is a pleasant 57-year-old woman presented for [...] today. She has had weight loss, but shehas been trying to lose weight through dietary modifications. We discussed that the differential diagnosis for hyperthyroidism include thyroiditis, Graves' disease and toxic nodule(s). We will repeat her TFTs and check TSI, TPO and TG antibody now. Based on theresults, we will discuss the next steps via [...] radiology. I think my colleague Lucille Callahan APRN.CNP for involving me in the care of this patient My final recommendations will be communicated back to the requesting physician by way of shared Medical record or letter to requesting physician via US mail. I spent 50 minutes in the visit, with more than 50% of the total xqiz-fv-uhkl time of the visit in counseling / coordination of care. Dex Santiago MD documented in this encounterMercy Health St. [facility]06-06-2022 History of Present illness Narrative* Rachel Lau MD - 04/16/2022 4:11 PM EDT Do Ruiz 1965 REFERRING PHYSICIAN: Lucille Callahan APRN.* CHIEF [...] 2 points Echogenicity: Hypoechoic, 2 points Shape: Yatzm-voeh-qwee, 0 points Margin: Ill-defined, 0 points Echogenic [...] Echogenicity cannot be determined, 1 point Shape: Itflyf-jfmt-fkch, 3 points Margin: Lobulated or irregular, 2 [...] entered by the nurse and reviewed by ca Nursing Notes: Gretchen Blackburn RN 04/16/2022 1:35 [...] back pain/injury, denies back problems, denies sciatica, deniesknee/foot trouble, denies arthritis, or denies gout. When was patient's last Mammogram screening? 2019 Last Colonoscopy: 2019 Gretchen Blackburn RN PHYSICAL EXAMINATION: General: The patient is 57 year old female, well nourished, well hydrated in no acute distress. Thepatient is oriented to time, place, and person. [...] thyroid nodules recommended by endocrinology (or the nurse special may proceed with this) Medical Decision Making: Problems: Moderate: New problem with uncertain prognosis Data: Unique test result(s) reviewed: 1 Risk: Low: Low risk from testing/treatment Medical Decision Making Level: 3 - Low Rachel Lau MD documented in this encounterMercy Health St. [facility]06-06-2022 Nurse Note* Gretchen Blackburn RN - 04/16/2022 1:29 PM EDT REVIEW OF SYSTEMS: General: The patient NOTES [...] back pain/injury, denies back problems, denies sciatica, deniesknee/foot trouble, denies arthritis, or denies gout. When was patient's last Mammogram screening? 2019 Last Colonoscopy: 2019 Gretchen Blackburn RN documented in this encounterMercy [facility]. [facility]05-27-2022 Miscellaneous Notes* Telephone Encounter - [facility] - 04/06/2022 2:22 PM EDT US of Thyroid and Consult to Endo has been scheduled. Perla Spears * Telephone Encounter - Marcela Denton LPN - 04/05/2022 9:26 AM EDT Please assist pt in scheduling US of Thyroid and Consult to Endo. Marcela Denton LPN * Telephone Encounter - Marcela Denton LPN - 04/05/2022 9:24 AM EDT Patient notified of results, verbalizes understanding of instructions. Pt stated she is not taking any Iron Supp. But will picker feeder OTC and start it. Agrees with US and Endo consult. Marcela Denton LPN * Telephone Encounter - Lucille Callahan APRN.YAQUELIN - 04/04/2022 6:49 PM EDT Please call patient and let her know [...] Verify that she is not currently taking aniron supplement. If she is, she needs to [...] in 3 months. Thank you, Lucille Callahan APRN.CNP documented in this encounterMercy Health St. [facility]05-23-2022 Instructions* Patient Instructions* Lucille Callahan APRN.CNP - 04/02/2022 10:38 AM EDT Blood work done today. Schedule mammogram. COVID and flu today in office. documented in this encounterMercy Health St. [facility]05-23-2022 History of Present illness Narrative* Lucille Callahan APRN.CNP - 04/02/2022 10:00 AM EDT Chief Complaint Patient presents with: Physical HPI Do Ruiz is a 57 year old female who presents here today for Above Complaints. Svetlana was an established patient of Dr. Radu DO in 2013. Has not been seen by this office since then. Coming in today for physical exam. Concerns today.. Generalized not feeling well since beginning of January. Described as fatigue and just feeling off.Did have slight low grade fever 99.9-100.1F, difficulty [...] lbs since . On diet plan called [employer]. --- eats 6x/day. Has one larger meal and the rest are snacks provided by this company. Drinking lots of water. 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 Plans on walking daily but has not started this yet. Recently got treadmill she needs to set up. HM: Overdue for mammogram. Had benign right breast mass removed in 2008. Never followed up on this since. Overdue for PAP and HPV testing -- has OB-BREAD WRAPPER OPERATOR that she has not been to in numerous years but would like re-establish at [facility] location. COVID immunizations x2 complete -- [...] No history of dysuria, frequency or incontinence BREAD WRAPPER OPERATOR: Negative for abnormal vaginal bleeding, abnormal vaginal [...] and extension, good range of motion, no muscletenderness, reflexes are 2+ and symmetric, motor and [...] diet of 1000 mg/day for under 50, 1200- 1500 mg/day for 50+ - Discussed need and benefit for weight loss. BMI 36.45 kg/(m^2) - Mammogram ordered - exam recommended once yearly - Overdue for PAP and HPV testing -- schedule with OB-BREAD WRAPPER OPERATOR or follow-up appointment with PCP team tohave completed. Pt agreeable. - Follow up for [...] with more than 50% of the total sfph-pl-czlq time of the visit in counseling / coordination of care. Prescription instructions reviewed with patient as applicable. Potential red flag symptoms discussed with the patient. Reviewed appropriate action plan to take if red flag symptoms occur. Patient agreeable to treatment plan. Lucille Callahan APRN.CNP [address] [place] [address] documented in [address] encounterMercy Health St. [facility]04-27-2022 History of Present illness Narrative* [place] [facility] Provider - 03/07/2022 7:48 AM EDT null (CCF:Not available AMW:[id number]) Visit Summary for Do Ruiz - Gender: Female - Date of : 1965 ( ) Date: [id number] - Duration: 6 minutes Patient: Do Ruiz Provider: Shea Abdul Patient Contact Information Address [address] [place] [id number] [phone] Visit Topics not feeling well for over a week - took at home covid test last saturday and was negative [Added By:Self - 2022-03-07] Triage Questions REQUIRED: Do you have Medicare or Medicaid Insurance?Answer [no] Do you have a cough, shortness of breath, difficulty breathing, fever, chills, headache, sore throat, muscles aches, acute change in smell or taste?Answer [slight cough, low grade fever, swollen glands, tired] Have you been in contactwith anyone confirmed with COVID 19 or suspected of having COVID 19 within the past 14 days?Answer [no] Do you have any vulnerable family members in the home (, , weak immune system, lung disease, active cancer, elderly)?Answer [no] Do you have any of the following: weak immune system, asthma or chronic lung disease, kidney problems and on dialysis, active cancer, diabetes or heart d isease or high blood pressure, HIV or organ transplant?Answer [no] Are you currently working in a healthcare facility?Answer [no] What is the address where you are currently located? This is important in case of a medical emergency.Answer [[address] [place]] Please enter a number I can contact you in the event we are disconnected.Answer [[phone]] Conversation Transcripts [Notification] Ayden Guzman, Global Staff, will help you prepare for your visit. She is assisting Shea Abdul Family Physician.[Ayden Guzman] Shelialo, and thank you for connecting. While you are waitingfor the doctor, are there any questions I can answer for you about our service? Please contact customer service if you have questions about billing, insurance, or technical issues. Visits work best with a stable WiFi connection, so please make sure you are connected before we begin.[Notification] Ayden Guzman has left the room.[Notification] You are connected with [facility].[Notification] Do Ruiz is located in [place].[Notification] Do Ruiz has shared health history...[ Notification] Shea Abdul has added a diagnosis/procedure code. Diagnosis Acute sinusitis, unspecified Value: J01.90 Code: ICD-10-CM Procedures Value: [id number] Code: CPT-4 OL DIG E/M SVC 11-20 [...] and verbalized understanding. Home care: Acetaminophen as neededfor pain or fever May also use Neti pot, nasal saline or throat lozenges as needed, adequate fluid hydration, tea with honey, vicks to chest, humidifier use. Referral or follow up: As needed for worsening or if no improvement in 5-7 daysAdditional recommendations: If you received a prescription at this visit and you have a question or problem please call [phone] for prescription assistance Please print a copy of this note and send it to your regular doctor, or take it to your next visit soit may be included in your medical record Please see your primary care provider on an annual basis or more frequently if directed The patient voiced understanding and agreement with plan. Electronically signed by: Shea Abdul( ) documented in this encounterSt. [facility] Hospitallt note Author [facility] Note Date/Time June 22, 2025 12 :55pm [facility] Medical Records Department [address] [place] [address] Pre-Anesthesia Evaluation 06/22/25 1246 MR#: [id number] Acct: [id number] Name: DO RUIZ Rep #:[id number] : 1965 60 From: Carlitos Wilder MD PCP: Dr. Uriel Lovelace, DO Status:RE G SDC Y Race: C Location: EN ASA Classification* ASA Classification ASA Classification: 3 Assessment & Plan Anesthesia* Anesthesia Assessment Anesthesia Assessment: Discussed sedation and/or anesthesia options, risks, benefits, and alternatives with patient/parents/legal guardian/POA. Questions invited. The patient/parents/legal guardian/POA seems to understand and agrees to proceedwith anesthesia plan. Reviewed the physical assessment, medical history, allergy history and patient home medications list prior to surgery/procedure/anesthetic and documented any changes. Performed airway and anesthesia risk assessments. Anesthesia Type Anesthesia Type: MAC History Source History Obtained from:: Patient and Chart Anesthesia Focused Assessment* Temperature: 97.3 F Pulse Rate: 89 Blood Pressure: 117/52 Respiratory Rate: 16 Pulse Ox: 97 Oxygen Delivery Method: Room Air Airway Assessment Mouth opens: >3 cm Mallampati Score: IV Teeth Condition: Caps/Crowns (Patient has several crowns. They are all tight.) and Missing (Patient has been 1 missing left upper molar. Rest are tight.) Neck Range of motion (ROM): Limited ROM (Slight Decrease) Labs Anesthesia Preop lab: CBC WBC 6.8 K/mm3 (4.4-11.0) 04/07/25 08:10 04/07/25 RBC 5.16 M/mm3 (4.2-5.4) 04/07/25 08:10 04/07/25 Hgb 14.1 g/dL (12.0-15.0) 04/07/25 08:10 04/07/25 Hct 42.8 % (37-47) 04/07/25 08:10 04/07/25 Plt Count 281 K/mm3 (150-450) 04/07/25 08:10 04/07/25 CHEMISTRY Potassium 4.1 mmol/L (3.3-5.1) 04/07/25 08:10 04/07/25 Sodium 140 mmol/L (133-145) 04/07/25 08:10 04/07/25 BUN 13 mg/dL (4-19) 04/07/25 08:10 04/07/25 Creatinine 0.85 mg/dL (0.70-1.20) 04/07/25 08:10 04/07/25 Glucose 116 mg/dL (70-99) H 04/07/25 08:10 04/07/25 COAG Pre-Assessment Diagnosis/Proposed Procedure Planned Operative Procedure(s): EGD Anesthesia History Anesthesia History - medical massage therapist: Anesthesia History - medical massage therapist Hx Hospitalization No 06/16/25 15:57 Any Problems With Anesthesia No 06/16/25 15:57 Cholinesterase deficiency No 06/16/25 15:57 You/Your Family Experience No 06/16/25 15:57 fever (hyperthermia) with Relationship Recent Exposure to Contagious No 06/22/25 12:15 Disease Does patient have nerve No 06/16/25 15:57 stimulator Patient instructed to have device shut off --Does patient have Pacemaker No 06/22/25 12:15 or ICD? When Was Last Pacemaker Check QUESTION #4 FULL TEXT: You/Your Family Experience fever (hyperthermia) with Anesthesia Last Oral Intake Last Oral intake: Last Oral Intake NPO since 08:00 06/22/25 12:15 Meds taken in AM with sips of No 06/22/25 12:15 water? Meds patient instructed to take am of surgery Any additional information?: Yes NPO since: 08:00 (Patient water 8 AM.) Meds taken in AM with sips of water?: No PONV PONV - medical massage therapist: PONV - medical massage therapist Female Yes 06/16/25 15:57 HX of Motion Sickness No 06/16/25 15:57 HX of N/V After Surgery No 06/16/25 15:57 Non-Smoker Yes 06/16/25 15:57 Duration of Surgery greater No 06/16/25 15:57 than 60 minutes Number of Risk Factors 2 06/16/25 15:57 PONV Score Moderate Risk 06/16/25 15:57 Height & Weight Height & Weight: Anesthesia: Height & Weight Height 5 ft 1 in 06/22/25 12:15 Weight: 97 kg 06/22/25 12:15 Body Mass Index (BMI) 40.4 06/22/25 12:15 Respiratory Assessment Respiratory Assessment - medical massage therapist: Respiratory Tract Infection Hx - medical massage therapist Hx Respiratory Tract Infection No 06/16/25 15:57 STOP Sleep Apnea STOP Sleep Apnea - medical massage therapist: STOP Sleep Apnea - medical massage therapist Hx Hypertension No 06/16/25 15:57 Hx Sleep Apnea No 06/16/25 15:57 CPAP BIPAP Do you snore loudly (louder Yes 06/16/25 15:57 than talking or can be heard Do you often feel tired/ Yes 06/16/25 15:57 fatigued/ sleepy during daytime? Has anyone observed you stop Yes 06/16/25 15:57 breathing during sleep? STOP Results Positive 06/16/25 15:57 QUESTION #5 FULL TEXT : Do you snore loudly (louder than talking or can be heard through closed doors)? 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 Specify any problems Hx of Preganancy in last 3 No 06/16/25 15:57 Months Nurse Filling Out Transfusion JZOLLINGE 06/16/25 15:57 & Questions: Date: 06/16/25 06/16/25 15:57 Time: 15:58 06/16/25 15:57 Patient unable to answer at this time (ie. confused, unrespo /Reproduction History /Reproductive History - medical massage therapist: /Reproductive Hx- medical massage therapist Hx Now No 06/16/25 15:57 Gestational Age (in weeks): EDC: Hx Hx Para Hx Section SAB No 06/16/25 15:57 Active Medications Active Medications: Current Medications Generic Name Dose Route Start Last Admin Trade Name Freq PRN Reason Stop Dose Admin Lactated Ringer's 1,000 mls @ 15 mls/hr 06/22/25 12:15 06/22/25 12:27 IV 15 mls/hr .Q48H LILLY Administration PFSH Medical History (Updated 06/16/25 @ 15:56 by Zhane Kerr) Wears glasses Low iron Gastric reflux Heartburn Non-smoker Sleep apnea Home Medications ?Medication ?Instructions ?Recorded ?Last Taken ?Type omeprazole 40 mg capsule,delayed 40 mg PO QDAY #30 cap s 05/04/25 06/21/25 Rx release semaglutide (weight loss) 0.25 0.25 mg subcut QWEEK 06/14/25 History mg/0.5 mL subcutaneous pen injector (Wegovy) Allergy/AdvReac Type Severity Reaction Status Date / Time No Known Allergies Allergy Verified 06/22/25 12:09 Surgical History (Updated 06/22/25 @ 12:[address] Carlitos Wilder MD) S/P LEEP S/P thyroid biopsy S/P breast biopsy, right Hx of colonoscopy Social History Smoking Status: Never smoker Review of Systems (Anesthesia) ROS Narrative System reviewed and no additional complaints, except as documented. 06/22/25 1255 <Electronically signed by Carlitos morales MD> Date _ Carlitos Wilder MD Cosigner Signature: Date CC: ~ Signed [facility] Work Phone: Consult note Author Tristan Salinas [facility] Note Date/Time June 22, 2025 1: 32pm [facility] Medical Records Department [address] [place] [address] Anesthesia Postop Eval I 06/22/25 1331 MR#: [id number] Acct: [id number] Name: DO RUIZ Rep #:[id number] : 1965 60 From: Tristan Salinas PCP: Dr. Uriel Lovelace, DO Status:RE G SDC Y Race: C Location: [place] [address] Anesthesia: Postop Eval I Current Vital Signs Temperature: 97 F Pulse Rate: 82 Blood Pressure: 121/67 Respiratory Rate: 16 Pulse Ox: 96 Oxygen Delivery Method: Room Air Assessment Airway patent: Yes Spontaneous unlabored respirations: Yes Mental status: Awake and Calm nausea: No Vomiting: No Anesthesia Complication: No Fluid Hydration Crystalloid volume administer (ml): 300 Total IV fluid infused: 300 Progress Note Anesthesia document: Postop Eval 1 completed: Yes 06/22/25 1332 <Electronically signed by Tristan Salinas > Date _ Tristan Salinas Cosigner Signature: Date CC: ~ Signed [facility] Work Phone: Discharge summary Author Yosi Chaney [facility] Note Date/Time April 07, 2025 9:59a [facility] Medical Records Department [address] [place] [address] Emergency Department Summary 04/07/25 MR#: [id number] Acct: [id number] Name: DO RUIZ Rep #:[id number] : 1965 60 From: Yosi Chaney MD PCP: Dr. Uriel oLvelace, DO Status:RE G ER Location: ED HPI [...] 75.1 H Lymph % (Auto) 14.2 L Placer % (Auto) 7.3 Eos % (Auto) 2.5 [...] SOFT TISSUES OF THE NECK. Reading Location: [place] [address] Discharge Plan Triage Chief Complaint: Foreign Body ED Provider: Yosi Chaney Dx/Rx/DC Orders Clinical Impression: Foreign body sensation in throat, GERD (gastroesophageal reflux disease) Instructions: ED GERD (Adult), ED Pain, Acute, Uncertain Cause Primary Care Provider: Uriel Lovelace Referrals: Uriel Lovelace DO [Primary Care Provider] - Jose Pacheco DO [Med Staff - Active Staff] - As soon as possible Activity Restrictions/Additional Instructions: Return to the emergency department with difficulty swallowing, new or worsening symptoms. You may want to start ctvc-nez-lvmpzot omeprazole, and follow-up withgastroenterology. Print Language: Kuwaiti Disposition Disposition: Home, Self Care What to do if you have Problems For any increased pain, shortness of breath, bleeding, nausea or vomiting, chestpain, or any unexpected problems, contact your Primary Care Provider. Call [facility] ([phone]) or report to the closest Emergency Room. Call 911 if necessary. 04/07/25 0959 <Electronically signed by Yosi Chaney MD> Cosigner Signature (if applicable): CC: Dr. Uriel Lovelace, DO ~ Signed [facility] Work Phone: Evaluation noteNo assessment information available [facility] Work Phone: Evaluation note* Diagnosis Wellness examination- Primary Fatigue, unspecified type Post-nasal drainage Unspecified sinusitis (chronic) Obesity, Class II, BMI 35-39.9 Obesity, unspecified Dysphagia, unspecified type [facility]* Diagnosis Fatigue, unspecified type- Primary Iron deficiency anemia, unspecified iron deficiency anemia type Hyperthyroidism Thyrotoxicosis without mention of goiter or other cause, without mention of thyrotoxic crisis or storm Vitamin D deficiency Unspecified vitamin D deficiency documented [facility] this [facility]* Diagnosis Hyperthyroidism Thyrotoxicosis without mention of goiter or other cause, without mention of thyrotoxic crisis or storm [facility] Diagnosis Abnormal ultrasound of thyroid gland- Primary Nonspecific abnormal results of thyroid function study Hyperthyroid [facility] Diagnosis Multiple thyroid nodules- Primary Nontoxic multinodular goiter Hyperthyroidism Thyrotoxicosis without mention of goiter or other cause, without mention of thyrotoxic crisis or storm [facility] Diagnosis Hyperthyroidism- Primary Thyrotoxicosis without mention of goiter or other cause, without mention of thyrotoxic crisis or storm [facility] Diagnosis Hyperthyroidism- Primary Thyrotoxicosis without mention of goiter or other cause, without mention of thyrotoxic crisis or storm [facility] Diagnosis Hyperthyroidism- Primary Thyrotoxicosis without mention of goiter or other cause, without mention of thyrotoxic crisis or storm Multiple thyroid nodules Nontoxic multinodular goiter [facility]* Diagnosis Hyperthyroidism Thyrotoxicosis without mention of goiter or other cause, without mention of thyrotoxic crisis or storm Multiple thyroid nodules Nontoxic multinodular goiter [facility] Diagnosis Wellness examination [facility]* Diagnosis Multiple thyroid nodules- Primary Nontoxic multinodular goiter Abnormal results of thyroid function studies Nonspecific abnormal results of thyroid function study documented [facility]* Diagnosis Multiple thyroid nodules- Primary Nontoxic multinodular goiter [facility]* Diagnosis Multiple thyroid nodules- Primary Nontoxic multinodular goiter documented [facility]* Diagnosis Thyroid nodule- Primary Nontoxic uninodular goiter [facility]* Diagnosis Abnormal results of thyroid function studies- Primary Nonspecific abnormal results of thyroid function study documented [facility] [facility] Diagnosis Multiple thyroid nodules- Primary Nontoxic multinodular goiter Abnormal results of thyroid function studies Nonspecific abnormal results of thyroid function study documented in this encounter [facility] note* Diagnosis Hyperthyroidism- Primary Thyrotoxicosis without mention of goiter or other cause, without mention of thyrotoxic crisis or storm Abnormal results of thyroid function studies Nonspecific abnormal results of thyroid function study documented in this encounter [facility] note* Diagnosis Abnormal results of thyroid function studies- Primary Nonspecific abnormal results of thyroid function study Multiple thyroid nodules Nontoxic multinodular goiter Class 3 severe obesity with body mass index (BMI) of 40.0 to 44.9 in adult, unspecified obesity type, unspecified whether serious comorbidity present (HCC) documented in this encounter [facility] note* Diagnosis Severe obesity (BMI >= 40) (HCC)- Primary Morbid obesity Sleep apnea-like behavior Insulin resistance Dysmetabolic Syndrome X Dyslipidemia Other and unspecified hyperlipidemia documented in this encounter [facility] note* Diagnosis Vision changes- Primary Unspecified visual disturbance [facility] Note Date/Time June 22, 2025 1: 11pm [facility] Medical Records Department [address] [place] [id number] History & Physical Exam 06/22/25 1309 MR#: [id number] Acct: [id number] Name: DO RUIZ Rep #:[id number] : 1965 60 From: Jose Pacheco DO PCP: Dr. Uriel Lovelace, DO Status:[facility] Location: [facility]-1 HPI - General General Date of Admission: 06/22/25 Date of Service: 06/22/25 Chief Complaint: Globus sensation HPI Narrative DO RUIZ, is a 60 F who presentsChief Complaint: ER f/u for lump in her throat Details: Per ER visit, 60-year-old female who denies significant past medical [...] is a lump in her throat that islarger and will not go away. No exacerbating or alleviating factors. Her laboratory work has normal white count 6.8 with hemoglobin 14.1, hematocrit 42.8, platelet count normal at 281. I also reviewed the radiology report of theCT of the soft tissue neck and there [...] Disposition is discharged home in stable condition. Today, she reports having taken omeprazole OTC for 2 weeks and states complete resolution of globus sensation, but her nausea, belching and HS reflux are returning. Prior to the omeprazole she reports having frequent cough, throat clearing, sinus drainage, and HS reflux so bad I'd wake up choking on it. She reports abdominal bloating if she can't relieve the gas pressure with a belch. Reports daily+ complete BM without straining. She denies difficulty chewing, emesis, abdominal pain, constipation, diarrhea, hematochezia, and melena. [facility] Medical History Wears glasses Low iron Gastric reflux Heartburn Non-smoker Sleep apnea Home Medications ?Medication ?Instructions ?Recorded ?Last Taken ?Type omeprazole 40 mg capsule,delayed 40 mg PO QDAY #30 cap s 05/04/25 06/21/25 Rx release semaglutide (weight loss) 0.25 0.25 mg subcut QWEEK 06/14/25 History mg/0.5 mL subcutaneous pen injector (Wegovy) Allergy/AdvReac Type Severity Reaction Status Date / Time No Known Allergies Allergy Verified 06/22/25 12:09 Surgical History S/P LEEP S/P thyroid biopsy S/P breast biopsy, right Hx of colonoscopy Social History Smoking Status: Never smoker ROS Constitutional Constitutional: Denies fatigue, fever(s), poor appetite, weight gain or weight loss Gastrointestinal Gastrointestinal: Denies belching, bloating, change in bowel habits, change in stool character, chewing difficulty, coffee ground emesis, constipation, cramping, diarrhea, dyspepsia, dysphagia, early satiety, excessive flatus, fecalincontinence, heartburn, hematemesis, hematochezia, hemorrhoids, loose stools, melena, nausea, odynophagia, rectal bleeding, tenesmus, vomiting or weight changes Vital Signs Vital Signs Vital Signs: 06/22/25 12:15 06/22/25 12:15 06/22/25 12:55 Temperature 97.3 F L 97.3 F L Temperature Source Temporal Pulse Rate 89 89 Respiratory Rate 16 16 Respiratory Pattern Normal Blood Pressure 117/52 L 117/52 L Blood Pressure Mean 73 Blood Pressure Source Monitor Blood Pressure Position Semi-Fowlers Blood Pressure Location Left Arm Pulse Ox 97 97 Oxygen Delivery Method Room Air Room Air Weight Weight: 213 lb 13.574 oz Body Mass Index (BMI) 40.4 Physical Exam Const alert, oriented x3, no apparent distress and healthy appearing General Appearance: cooperative GI normal to inspection, nondistended, normoactive bowel sounds, soft to palpation,non-tender and non-distended Percussion: normal to percussion Rectal Exam: deferred Assessment & Plan Assessment/Plan (1) Globus sensation: (2) GERD (gastroesophageal reflux disease): QUALIFIERS: Esophagitis presence: esophagitis presence not specified Qualified Code(s): K21.9 - Gastro-esophageal reflux disease without esophagitis PLAN: Assessment and Plan Assessment and Plan (1) GERD (gastroesophageal reflux disease): Status: Chronic Qualifiers: Esophagitis presence: esophagitis presence not specified Qualified Code(s): K21.9 - Gastro-esophageal reflux disease without esophagitis (2) Globus sensation: Status: Acute Medications: New omeprazole 40 mg PO QDAY 30 caps 3RF Plan DO RUIZ, is a 60 F who presents to the office today for establishment with [facility] following [facility] ER visit on 04.07.25 for globus sensation. Differential diagnoses include: GERD, esophagitis, esophageal dysmotility, EoE. Discussed care plan with her. She voices concerns regarding usp use of acid-controlling medicines can cause cancer, she had read. Discussed possible side effects of chronic therapy with PPIs relating to bone density reduction, memory issues mainly, but also reviewed risks of developing esophageal cancer from untreated reflux by way of pathologic tissue mutations. She is agreeable to taking the PPI daily until esophageal tissue pathology can be obtained. She states that her last colonoscopy was more than 5 years ago, but less than 10, and that it does not need repeated yet. * omeprazole 40mg PO daily, 30minutes before eating * schedule EGD * elevate HoB * no meals 2-3hrs before bed * encourage frequent small meals * remain upright for at least 1hr after eating * office FU 2wks after EGD 06/22/25 1311 <Electronically signed by Jose Pacheco DO> Cosigner Signature (if applicable): CC: Dr. Uriel Lovelace DO; Jose Pacheco DO~ [facility]igned [facility] Work Phone: Reason for referral (narrative)* Diagnostic Procedure Only (Routine) - Authorized Specialty Diagnoses / Procedures Referred By Contac t Referred To Contact BR IMAGING Diagnoses Wellness examination Procedures PEMA SCREENING SCREENING MAMMOGRAPHY BI 2-VIEW BREAST INC CAD Lucille Callahan APRN.SENIOR MAINTENANCE MACHINIST [address] [place] [address] Br Imaging [address] [place] [address] Referral ID Status Reason Start Date Expiration Date Visits Requested Visits Authorized [id number] Authorized Auto-Generat ed Referral 04/02/2022 05/02/2023 1 1 [facility] for referral (narrative)* Diagnostic Procedure Only (Routine) - Authorized Specialty Diagnoses / Procedures Referred By Contac t Referred To Contact US IMAGING Diagnoses Hyperthyroidism Procedures US THYROID/PARATHYROID US SOFT TISSUE HEAD & NECK REAL TIME IMGE Lucille Rodriguez APRN.SENIOR MAINTENANCE MACHINIST [address] [place] [address] Us Imaging Referral ID Status Reason Start Date Expiration Date Visits Requested Visits Authorized [id number] Authorized Auto-Generat ed Referral 04/04/2022 05/04/2023 1 1 * Consult, Test, Treat (Routine) - Authorized Specialty Diagnoses / Procedures Referred By Contac t Referred To Contact Endocrinology Diagnoses Hyperthyroidism Procedures CONSULT TO ENDOCRINOLOGY OFFICE/OUTPATIENT [facility] MDM 60-74 MINUTES Lucille Callahan APRN.SENIOR MAINTENANCE MACHINIST [address] [place] [address] Referral ID Status Reason Start Date Expiration Date Visits Requested Visits Authorized [id number] Authorized PCP Requested Referral 04/04/2022 04/04/2023 1 1 [facility] for referral (narrative)* Diagnostic Procedure Only (Routine) - Closed Specialty Diagnoses / Procedures Referred By Contac t Referred To Contact US IMAGING Diagnoses Hyperthyroidism Procedures US THYROID/PARATHYROID US SOFT TISSUE HEAD & NECK REAL TIME IMGE Lucille Rodriguez APRN.SENIOR MAINTENANCE MACHINIST [address] [place] [address] Us Imaging Referral ID Status Reason Start Date Expiration Date V isits Requested Visits Authorized [id number] Closed Auto-Generate d Referral 04/04/2022 05/04/2023 1 1 [facility] for referral (narrative)* Diagnostic Procedure Only (Routine) - Pending Review Specialty Diagnoses / Procedures Referred By Contact Referred To Contact MOLECULAR & FUNCTIONAL IMAGING Diagnoses Hyperthyroidism Procedures NM THY UPTAKE AND SCAN THYROID UPTAKE W/BLOOD FLOW SNGLE/MULT JENNIFFER MARCELA Dex Santiago MD [address] [place] [address] [facility] [address] [place] [address] Referral ID Status Reason Start Date Expiration Date Visits Requested Visits Authorized [id number] Pending Review Auto-Generat ed Referral 05/07/2022 06/06/2023 1 1 T [facility] for referral (narrative)* Diagnostic Procedure Only (Routine) - Pending Review Specialty Diagnoses / Procedures Referred By Contac t Referred To Contact MOLECULAR & FUNCTIONAL IMAGING Diagnoses Hyperthyroidism Multiple thyroid nodules Procedures NM THY UPTAKE ONLY THYROID UPTAKE SINGLE/MULTIPLE QUANT MEASUREMENT Dex Santiago MD [address] [place] [address] Molecular & Functional Imaging [address] [place] [address] Referral ID Status Reason Start Date Expiration Date Visits Requested Visits Authorized [id number] Pending Review Auto-Generat ed Referral 05/09/2022 06/08/2023 1 1 T [facility] for referral (narrative)* Diagnostic Procedure Only (Routine) - Closed Specialty Diagnoses / Procedures Referred By Contac t Referred To Contact MOLECULAR & FUNCTIONAL IMAGING Diagnoses Hyperthyroidism Multiple thyroid nodules Procedures NM THY UPTAKE ONLY THYROID UPTAKE SINGLE/MULTIPLE QUANT MEASUREMENT Dex Santiago MD [address] [place] [address] Molecular & Functional Imaging [address] [place] [address] Referral ID Status Reason Start Date Expiration Date V isits Requested Visits Authorized [id number] Closed Auto-Generate d Referral 05/09/2022 06/08/2023 1 1 [facility] for referral (narrative)* Diagnostic Procedure Only (Routine) - Closed Specialty Diagnoses / Procedures Referred By Contac t Referred To Contact BR IMAGING Diagnoses Wellness examination Procedures PEMA SCREENING SCREENING MAMMOGRAPHY BI 2-VIEW BREAST INC Lucille Alford APRN.SENIOR MAINTENANCE MACHINIST [address] [place] [address] Br Imaging [address] [place] [address] Referral ID Status Reason Start Date Expiration Date V isits Requested Visits Authorized [id number] Closed Auto-Generate d Referral 04/02/2022 05/02/2023 1 1 [facility] for referral (narrative)No reason for referral information availableWAs[facility] Work Phone: Reason for visit Narrative* Diagnostic Procedure Only (Routine) - Closed Specialty Diagnoses / Procedures Referred By Contac t Referred To Contact US IMAGING Diagnoses Hyperthyroidism Procedures US THYROID/PARATHYROID US SOFT TISSUE HEAD & NECK REAL TIME IMGE Lucille Rodriguez APRN.SENIOR MAINTENANCE MACHINIST [address] [place] [address] Us Imaging Referral ID Status Reason Start Date Expiration Date V isits Requested Visits Authorized [id number] Closed Auto-Generate d Referral 04/04/2022 05/04/2023 1 1 [facility] for visit Narrative* Diagnostic Procedure Only (Routine) - Closed Specialty Diagnoses / Procedures Referred By Contac t Referred To Contact BR IMAGING Diagnoses Wellness examination Procedures PEMA SCREENING SCREENING MAMMOGRAPHY BI 2-VIEW BREAST INC Lucille Alford APRN.SENIOR MAINTENANCE MACHINIST [address] [place] [address] Br Imaging [address] [place] [address] Referral ID Status Reason Start Date Expiration Date V isits Requested Visits Authorized [id number] Closed Auto-Generate d Referral 04/02/2022 05/02/2023 [address] [facility] Chief Complaint and Reason for Visit Chief Complaint PFIZER VACCINE Chief Complaint Admit Date throat lump April 07, 2025 7:28a m Chief Complaint Admit Date throat lump April 07, 2025 7:28a m eye April 18, 2025 9:18a m Chief Complaint Admit Date throat lump April 07, 2025 7:28a m eye April 18, 2025 9:18a m acid reflux - lump in throat May 04, 2025 7:58am Reason for Visit Admit Date Globus sensation May 04, 2025 7:58 am GERD (gastroesophageal reflux disease) J une 2024 7:58am Globus sensation June 22, 2025 11 :51am GERD (gastroesophageal reflux disease) A ugust 2024 11:51am Advance Directives Documents on File Type Date 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 No April 07, 2025 7:30am Advance Directive Response Recorded Date/ Time Do you have a Healthcare Power of Training Consultant? No April 18, 2025 9:18am Do you have a Healthcare Power of Training Consultant? No April 07, 2025 7:30am Advance Directive Response Recorded Date/ Time Do you have a Healthcare Power of Training Consultant? No April 18, 2025 9:18am Do you have a Healthcare Power of Training Consultant? No June 16, 2025 3:57pm Do you have a Healthcare Power of Training Consultant? No April 07, 2025 7:30am Summary Purpose Family History No Family History Records FoundNo Family History Records FoundNo Family History Records Found Reason for Referral Specialty Diagnoses / Procedures Referred By Contac t Referred To Contact Diagnoses Class 3 severe obesity with body mass index (BMI) of 40.0 to 44.9 in adult, unspecified obesity type, unspecified whether serious comorbidity present (HCC) Procedures ENDOCRINE MEDICAL WEIGHT MANAGEMENT OFFICE/OUTPATIENT [facility] 60 MINUTES Dex Santiago MD [address] [place] [address] Referral ID Status Reason Start Date Expiration Date Visits Requested Visits Authorized [id number] Authorized PCP Requested Referral 04/20/2024 04/20/2025 1 1 Specialty Diagnoses / Procedures Referred By Sherryac t Referred To Contact US IMAGING Diagnoses Abnormal results of thyroid function studies Multiple thyroid nodules Procedures US THYROID/PARATHYROID US SOFT TISSUE HEAD & NECK REAL TIME IMGE DOCM Dex Santiago MD [address] [place] [address] Us Imaging [id number] Referral ID Status Reason Start Date Expiration Date Visits Requested Visits Authorized [id number] Pending Review Auto-Generat ed Referral 04/20/2024 05/20/2025 1 1 Specialty Diagnoses / Procedures Referred By Sherryac t Referred To Contact Diagnoses Sleep apnea-like behavior Severe obesity (BMI >= 40) (HCC) Procedures ENDOCRINOLOGY DIETITIAN VISIT (MNT) MEDICAL NUTRITION ASSMT&IVNTJ INDIV EACH 15 KS MEDICAL NUTRITION ASSMT&IVNTJ INDIV EACH 15 [place] MEDICAL NUTRITION ASSMT&IVNTJ INDIV EACH 15 [place] MEDICAL NUTRITION ASSMT&IVNTJ INDIV EACH [address] [place] [address] [place] [address] Referral ID Status Reason Start Date Expiration Date Visits Requested Visits Authorized [id number] Authorized PCP Requested Referral 06/19/2024 06/19/2025 1 1 Specialty Diagnoses / Procedures Referred By Contac t Referred To Contact Diagnoses Sleep apnea-like behavior Severe obesity (BMI >= 40) (HCC) Procedures CONSULT TO SLEEP MEDICINE - ADULT OFFICE/OUTPATIENT [facility] [address] [place] [address] [place] [address] Referral ID Status Reason Start Date Expiration Date Visits Requested Visits Authorized [id number] Authorized PCP Requested Referral 06/19/2024 06/19/2025 1 1 Additional Source Comments Goals (unrecognized section and content) Goals may be documented in a n alternate sectionGoals may be documented in an alternate sectionGoals may be documented in an alternate sectionGoals may be documented in an alternate section Source Comments (unrecognize d section and content) In the event this informatio n is protected by the Federal Confidentiality of Alcohol and Drug Abuse Patient Records regulations: The Federal rules restrict any use of the information to criminally investigate or prosecute any alcohol or drug abuse patient.[facility] the event this information is protected by the Federal Confidentiality of Alcohol and Drug Abuse Patient Records regulations: The Federal rules restrict any use of the information to criminally investigate or prosecute any alcohol or drug abuse patient.[facility] CenterIn the event this information is protected by the Federal Confidentiality of Alcohol and Drug Abuse Patient Records regulations: The Federal rules restrict any use of the information to criminally investigate or prosecute any alcohol or drug abuse patient.[facility] the event this information is protected by the Federal Confidentiality of Alcohol and Drug Abuse Patient Records regulations: The Federal rules restrict any use of the information to criminally investigate or prosecute any alcohol or drug abuse patient.[facility] CenterIn the event this information is protected by the Federal Confidentiality of Alcohol and Drug Abuse Patient Records regulations: The Federal rules restrict any use of the information to criminally investigate or prosecute any alcohol or drug abuse patient.[facility] CenterIn the event this information is protected by the Federal Confidentiality of Alcohol and Drug Abuse Patient Records regulations: The Federal rules restrict any use of the information to criminally investigate or prosecute any alcohol or drug abuse patient.[facility] CenterIn the event this information is protected by the Federal Confidentiality of Alcohol and Drug Abuse Patient Records regulations: The Federal rules restrict any use of the information to criminally investigate or prosecute any alcohol or drug abuse patient.[facility] CenterIn the event this information is protected by the Federal Confidentiality of Alcohol and Drug Abuse Patient Records regulations: The Federal rules restrict any use of the information to criminally investigate or prosecute any alcohol or drug abuse patient.[facility] CenterIn the event this information is protected by the Federal Confidentiality of Alcohol and Drug Abuse Patient Records regulations: The Federal rules restrict any use of the information to criminally investigate or prosecute any alcohol or drug abuse patient.[facility] CenterIn the event this information is protected by the Federal Confidentiality of Alcohol and Drug Abuse Patient Records regulations: The Federal rules restrict any use of the information to criminally investigate or prosecute any alcohol or drug abuse patient.[facility] CenterIn the event this information is protected by the Federal Confidentiality of Alcohol and Drug Abuse Patient Records regulations: The Federal rules restrict any use of the information to criminally investigate or prosecute any alcohol or drug abuse patient.[facility] CenterIn the event this information is protected by the Federal Confidentiality of Alcohol and Drug Abuse Patient Records regulations: The Federal rules restrict any use of the information to criminally investigate or prosecute any alcohol or drug abuse patient.[facility] CenterIn the event this information is protected by the Federal Confidentiality of Alcohol and Drug Abuse Patient Records regulations: The Federal rules restrict any use of the information to criminally investigate or prosecute any alcohol or drug abuse patient.[facility] CenterIn the event this information is protected by the Federal Confidentiality of Alcohol and Drug Abuse Patient Records regulations: The Federal rules restrict any use of the information to criminally investigate or prosecute any alcohol or drug abuse patient.[facility] CenterIn the event this information is protected by the Federal Confidentiality of Alcohol and Drug Abuse Patient Records regulations: The Federal rules restrict any use of the information to criminally investigate or prosecute any alcohol or drug abuse patient.[facility] CenterIn the event this information is protected by the Federal Confidentiality of Alcohol and Drug Abuse Patient Records regulations: The Federal rules restrict any use of the information to criminally investigate or prosecute any alcohol or drug abuse patient.[facility] CenterIn the event this information is protected by the Federal Confidentiality of Alcohol and Drug Abuse Patient Records regulations: The Federal rules restrict any use of the information to criminally investigate or prosecute any alcohol or drug abuse patient.[facility] CenterIn the event this information is protected by the Federal Confidentiality of Alcohol and Drug Abuse Patient Records regulations: The Federal rules restrict any use of the information to criminally investigate or prosecute any alcohol or drug abuse patient.[facility] CenterIn the event this information is protected by the Federal Confidentiality of Alcohol and Drug Abuse Patient Records regulations: The Federal rules restrict any use of the information to criminally investigate or prosecute any alcohol or drug abuse patient.[facility] CenterIn the event this information is protected by the Federal Confidentiality of Alcohol and Drug Abuse Patient Records regulations: The Federal rules restrict any use of the information to criminally investigate or prosecute any alcohol or drug abuse patient.[facility] CenterIn the event this information is protected by the Federal Confidentiality of Alcohol and Drug Abuse Patient Records regulations: The Federal rules restrict any use of the information to criminally investigate or prosecute any alcohol or drug abuse patient.[facility] CenterIn the event this information is protected by the Federal Confidentiality of Alcohol and Drug Abuse Patient Records regulations: The Federal rules restrict any use of the information to criminally investigate or prosecute any alcohol or drug abuse patient.[facility] CenterIn the event this information is protected by the Federal Confidentiality of Alcohol and Drug Abuse Patient Records regulations: The Federal rules restrict any use of the information to criminally investigate or prosecute any alcohol or drug abuse patient.[facility] CenterIn the event this information is protected by the Federal Confidentiality of Alcohol and Drug Abuse Patient Records regulations: The Federal rules restrict any use of the information to criminally investigate or prosecute any alcohol or drug abuse patient.[facility] CenterIn the event this information is protected by the Federal Confidentiality of Alcohol and Drug Abuse Patient Records regulations: The Federal rules restrict any use of the information to criminally investigate or prosecute any alcohol or drug abuse patient.[facility] CenterIn the event this information is protected by the Federal Confidentiality of Alcohol and Drug Abuse Patient Records regulations: The Federal rules restrict any use of the information to criminally investigate or prosecute any alcohol or drug abuse patient.[facility] CenterIn the event this information is protected by the Federal Confidentiality of Alcohol and Drug Abuse Patient Records regulations: The Federal rules restrict any use of the information to criminally investigate or prosecute any alcohol or drug abuse patient.[facility] CenterIn the event this information is protected by the Federal Confidentiality of Alcohol and Drug Abuse Patient Records regulations: The Federal rules restrict any use of the information to criminally investigate or prosecute any alcohol or drug abuse patient.[facility] CenterIn the event this information is protected by the Federal Confidentiality of Alcohol and Drug Abuse Patient Records regulations: The Federal rules restrict any use of the information to criminally investigate or prosecute any alcohol or drug abuse patient.[facility] CenterIn the event this information is protected by the Federal Confidentiality of Alcohol and Drug Abuse Patient Records regulations: The Federal rules restrict any use of the information to criminally investigate or prosecute any alcohol or drug abuse patient.[facility] CenterIn the event this information is protected by the Federal Confidentiality of Alcohol and Drug Abuse Patient Records regulations: The Federal rules restrict any use of the information to criminally investigate or prosecute any alcohol or drug abuse patient.[facility] CenterIn the event this information is protected by the Federal Confidentiality of Alcohol and Drug Abuse Patient Records regulations: The Federal rules restrict any use of the information to criminally investigate or prosecute any alcohol or drug abuse patient.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 Uriel Lovelace DO Primary Care Provider Active Team Status: Inactive Member Role Status Dates Yosi Chaney MD Emergency Provider Active Star t: April 07, 2025 End: April 07, 2025 Dr. Uriel Lovelace DO Primary Care Provider Active Start: April 07, 2025 End: April 07, 2025 Team Status: Inactive Member Role Status Dates Yosi Chaney MD Attending Provider Active Star t: April 07, 2025 End: April 07, 2025 Yosi Chaney MD Emergency Provider Active Star t: April 07, 2025 End: April 07, 2025 Dr. Uriel Lovelace DO Primary Care Provider Active Start: April 07, 2025 End: April 07, 2025 Team Status: Inactive Member Role Status Dates Dr. Uriel Lovelace DO Primary Care Provider Active Start: April 18, 2025 End: April 18, 2025 Dr. Brooklynn Velasco DO Emergency Provider Active S tart: April 18, 2025 End: April 18, 2025 Team Status: Inactive Member Role Status Dates Dr. Uriel Lovelace DO Primary Care Provider Active Start: April 18, 2025 End: April 18, 2025 Dr. Brooklynn Velasco DO Attending Provider Active S tart: April 18, 2025 End: April 18, 2025 Dr. Brooklynn Velasco DO Emergency Provider Active S tart: April 18, 2025 End: April 18, 2025 Team Status: Inactive Member Role Status Dates Dr. Uriel Lovelace DO Primary Care Provider Active Start: May 04, 2025 End: May 04, 2025 Dr. Uriel Lovelace DO Referring Provider Active Start: May 04, 2025 End: May 04, 2025 GABI De Dios Attending Provider Active S tart: May 04, 2025 End: May 04, 2025 Team Status: Active Member Role/Relationship Status Dates Dr. Uriel Lovelace DO Primary Care Provider Active Team Status: Inactive Member Role/Relationship Status Dates Yosi Chaney MD Attending Provider Active Star t: April 07, 2025 End: April 07, 2025 Yosi Chaney MD Emergency Provider Active Star t: April 07, 2025 End: April 07, 2025 Dr. Uriel Lovelace DO Primary Care Provider Active Start: April 07, 2025 End: April 07, 2025 Team Status: Inactive Member Role/Relationship Status Dates Dr. Uriel Lovelace DO Primary Care Provider Active Start: April 18, 2025 End: April 18, 2025 Dr. Brooklynn Velasco DO Attending Provider Active S tart: April 18, 2025 End: April 18, 2025 Dr. Brooklynn Velasco DO Emergency Provider Active S tart: April 18, 2025 End: April 18, 2025 Team Status: Inactive Member Role/Relationship Status Dates Dr. Uriel Lovelace DO Primary Care Provider Active Start: May 04, 2025 End: May 04, 2025 Dr. Uriel Lovelace DO Referring Provider Active Start: May 04, 2025 End: May 04, 2025 GABI De Dios Attending Provider Active S tart: May 04, 2025 End: May 04, 2025 Team Status: Inactive Member Role/Relationship Status Dates Dr. Uriel Lovelace DO Primary Care Provider Active Start: June 22, 2025 End: June 22, 2025 Dr. Uriel Lovelace DO Referring Provider Active Start: June 22, 2025 End: June 22, 2025 Dr. Jose Pacheco DO Attending Provider Active Start: June 22, 2025 End: June 22, 2025 Team Status: Active Member Role/Relationship Status Dates Dr. Uriel Lovelace DO Primary Care Provider Active Start: June 22, 2025 Dr. Uriel Lovelace DO Referring Provider Active Start: June 22, 2025 Dr. Jose Pacheco DO Attending Provider Active Start: June 22, 2025 Dr. Jose Pacheco DO Other Provider Active St art: June 22, 2025 Reason for Visit (unrecogniz ed section and content) Reason Comments Follow Up Specialty Diagnoses / Procedures Referred By Contac t Referred To Contact Endocrinology Diagnoses Hyperthyroidism Procedures CONSULT TO ENDOCRINOLOGY OFFICE/OUTPATIENT [facility] 60-74 MINUTES Lucille Callahan, YASMIN.SENIOR MAINTENANCE MACHINIST [address] [place] [address] Referral ID Status Reason Start Date Expiration Date V isits Requested Visits Authorized [id number] Closed PCP Requested Referral 04/04/2022 04/04/2023 1 1 Reason Comments Physical Reason Comments Results Reason Comments Consult thyroid nodules Specialty Diagnoses / Procedures Referred By Contac t Referred To Contact General Surgery Diagnoses Multiple thyroid nodules Procedures CONSULT TO GENERAL SURGERY OFFICE/OUTPATIENT [facility] 60-74 MINUTES Lucille Callahan, SANITATION ASSOCIATE.SENIOR MAINTENANCE MACHINIST [address] [place] [address] Referral ID Status Reason Start Date Expiration Date V isits Requested Visits Authorized [id number] Closed PCP Requested Referral 04/12/2022 04/12/2023 1 1 Reason Comments Consult Reason Comments THYROID NON ENDO-MD Reason Comments Nm Pet Request Reason Comments Radiology NM Specialty Diagnoses / Procedures Referred By Contac t Referred To Contact MOLECULAR & FUNCTIONAL IMAGING Diagnoses Hyperthyroidism Multiple thyroid nodules Procedures NM THY UPTAKE ONLY THYROID UPTAKE SINGLE/MULTIPLE QUANT MEASUREMENT Dex Santiago MD [address] [place] [address] Molecular & Functional Imaging [address] [place] [address] Referral ID Status Reason Start Date Expiration Date V isits Requested Visits Authorized [id number] Closed Auto-Generate d Referral 05/09/2022 06/08/2023 1 1 Reason Comments FNA Biopsy of 2 thyroid nodules Establis hed Patient Reason Comments Results Specialty Diagnoses / Procedures Referred By Contac t Referred To Contact Diagnoses Thyroid nodule Procedures BIOPSY THYROID PERCUTANEOUS CORE NEEDLE BIOPSY THYROID [facility] [address] [place] [address] Referral ID Status Reason Start Date Expiration Date Visits Re quested Visits Authorized [id number] 1 1 Reason Comments Patient Question Labs and Upcoming Ap pt Reason Comments Thyroid Problem Reason Comments Medical Weight Management Specialty Diagnoses / Procedures Referred By Contac t Referred To Contact Diagnoses Class 3 severe obesity with body mass index (BMI) of 40.0 to 44.9 in adult, unspecified obesity type, unspecified whether serious comorbidity present (HCC) Procedures ENDOCRINE MEDICAL WEIGHT MANAGEMENT OFFICE/OUTPATIENT [facility] 60 MINUTES Dex Santiago MD [address] [place] [address] Referral ID Status Reason Start Date Expiration Date V isits Requested Visits Authorized [id number] Closed PCP Requested Referral 04/20/2024 04/20/2025 1 1 Reason Comments Appointment Reason Comments Eye Problem R eye x1 day, cat sc ratched eye INFORMATION SOURCE (unrecogn ized section and content) DATE CREATED AUTHOR 10/23/2022 [facility] DATE CREATED AUTHOR AUTHOR'S ORGANIZ ATION 04/18/2025 [facility] DATE CREATED AUTHOR AUTHOR'S ORGANIZ ATION 06/22/2025 [facility] FOR RECORDS PERTAINING TO PATIENTS WHO ARE [...] BE BASED ON THE PRIMARY CLINICAL RECORDS. [facility]. provides no warranty or guarantee of the accuracy or completeness of information in this document.
== END 2025-06-22 14:21 | disposition home or self-care (01) ==
LOC: EN 11:58 → AC 13:09
PROVIDERS: PCP Student in an Organized Health Care Education/Training Program; Referring Provider Student in an Organized Health Care Education/Training Program; Visit Provider Internal Medicine Gastroenterology
PROC: 0DJ08ZZ Inspection of Upper Intestinal Tract, Via Natural or Artificial Opening Endoscopic (ICD-10-PCS; CPT 43235; principal; 2025-06-22 12:55)
DX: K22.70 Barrett's esophagus without dysplasia (principal); K44.9 Diaphragmatic hernia without obstruction or gangrene; K21.00 Gastro-esophageal reflux disease with esophagitis, without bleeding; Z79.899 Other long term (current) drug therapy
CPT/HCPCS: 43239; 88305; J2405

== ENCOUNTER → 2025-07-07 | Outpatient (CLI) | payer BC, SELFPAY ==
[2025-07-11 02:06] LABS: Egg, Whole 0.13 kU/L (Class 0/I); Mussels <0.10 kU/L (Class 0)
== END | disposition home or self-care (01) ==
PROVIDERS: PCP Student in an Organized Health Care Education/Training Program; Referring Provider Student in an Organized Health Care Education/Training Program; Visit Provider Student in an Organized Health Care Education/Training Program
DX: K21.9 Gastro-esophageal reflux disease without esophagitis (principal); R09.A2 Foreign body sensation, throat
CPT/HCPCS: 36415; 86003; 86005